=== PATIENT | male | born 1940 | race Caucasian/White ===

== ENCOUNTER → 2017-10-18 | Outpatient (CLI) | payer MEDICARE, OTHER ==
[~2017-10-18] MED LIST: ALLOPURINOL300 MG PO; AMIODARONE HCL200 MG PO; ASPIR 8181 MG PO; CARVEDILOL12.5 MG PO; CLOPIDOGREL75 MG PO; DEXILANT60 MG PO; JANUVIA100 MG PO; K DUR10 MEQ PO; LASIX40 MG PO; LISINOPRIL10 MG PO; METOCLOPRAMIDE10 MG PO; METOPROLOL SUCC50 MG PO; PRAVASTATIN SOD80 MG PO; TAMSULOSIN HCL0.4 MG PO; TRIAMCINOLONE A15 G1; VICTOZA 2-0.6 MG/0.1 SC; ZESTRIL10 MG PO; eliquis PO
--- NOTE | 2017-10-18 16:25 | Diagnostic Imaging Report ---
EXAM: Renal Ultrasound INDICATION: CHRONIC KIDNEY DISEASE STAGE III COMPARISON: None TECHNIQUE: Transverse and longitudinal images of the kidneys and bladder were obtained. FINDINGS: Right Kidney: Length: 10.8 cm Appearance: Increased echogenicity. Collecting system: No hydronephrosis Stones: None Cyst/Mass: Anechoic lesion with septation in the lower pole measures 1.7 x 1.5 x 1.3 cm consistent with a mildly complex cyst. Hypoechoic area in the interpolar region measures 1.4 x 1.4 x 1.2 cm, possibly a prominent pyramid. Small anechoic area in the lower pole measures 0.9 x 0.7 x 0.9 cm. Left Kidney: Length: 9.6 cm Appearance: Increased echogenicity. Collecting system: Mild hydronephrosis Stones: None Cyst/Mass: 0.7 x 0.6 x 0.7 cm cyst in the lower pole. Bladder: Irregular thickened urinary bladder wall measuring up to 0.6 cm in thickness.. Small volume post void residual. The prostate measures 2.2 x 1.9 x 4.0 cm with a volume of 8.9 cc. IMPRESSION: 1. Increased echogenicity of the renal cortex bilaterally suggestive of medical renal disease. 2. 1.5 cm mildly complex lower pole right renal cyst. 3. Mild bladder trabeculation. Signed by: Dr. Roland Momin M.D. on 10/18/2017 4:22 PM
--- NOTE | 2017-10-18 17:48 | Diagnostic Imaging Report ---
PROCEDURE:US RETROPERITONEAL ( KIDNEY ). EXAM: Renal Ultrasound INDICATION: CHRONIC KIDNEY DISEASE STAGE III COMPARISON: None TECHNIQUE: Transverse and longitudinal images of the kidneys and bladder were obtained. FINDINGS: Right Kidney: Length: 10.8 cm Appearance: Increased echogenicity. Collecting system: No hydronephrosis Stones: None Cyst/Mass: Anechoic lesion with septation in the lower pole measures 1.7 x 1.5 x 1.3 cm consistent with a mildly complex cyst. Hypoechoic area in the interpolar region measures 1.4 x 1.4 x 1.2 cm, possibly a prominent pyramid. Small anechoic area in the lower pole measures 0.9 x 0.7 x 0.9 cm. Left Kidney: Length: 9.6 cm Appearance: Increased echogenicity. Collecting system: Mild hydronephrosis Stones: None Cyst/Mass: 0.7 x 0.6 x 0.7 cm cyst in the lower pole. Bladder: Irregular thickened urinary bladder wall measuring up to 0.6 cm in thickness.. Small volume post void residual. The prostate measures 2.2 x 1.9 x 4.0 cm with a volume of 8.9 cc. IMPRESSION: 1. Increased echogenicity of the renal cortex bilaterally suggestive of medical renal disease. 2. 1.5 cm mildly complex lower pole right renal cyst. 3. Mild bladder trabeculation. Roland JULIAN M.D. DICTATED BY: Roland JULIAN M.D. ON 10/18/2017 AT 17:57 ELECTRONICALLY APPROVED BY: Roland JULIAN M.D. ON 10/18/2017 AT 17:57
== END ==
LOC: US 11:38
PROVIDERS: ATTEND Internal Medicine Nephrology
DX: N18.3 Chronic kidney disease, stage 3 (moderate) (principal); I10 Essential (primary) hypertension
CPT/HCPCS: 76770; 76857

== ENCOUNTER → 2018-11-06 | Outpatient (CLI) | payer MEDICARE, OTHER ==
--- NOTE | 2018-11-06 14:55 | Diagnostic Imaging Report ---
EXAMINATION: PA and lateral views of the chest. COMPARISON: None CLINICAL HISTORY: Congestive heart failure DISCUSSION: Lines/tubes: None. Lungs: Lower lung atelectasis. No interstitial edema. Pleura: Small effusions. Heart and mediastinum: Prominent heart size. Bones and soft tissues: No acute bony abnormalities. IMPRESSION: Mild lower lung atelectasis and small effusions. No pulmonary edema. Signed by: Dr. Andrew Ponce M.D. on 11/06/2018 2:52 PM
== END ==
LOC: RAD 13:10
PROVIDERS: ATTEND Internal Medicine
DX: I50.43 Acute on chronic combined systolic (congestive) and diastolic (congestive) heart failure (principal)
CPT/HCPCS: 71046

== ENCOUNTER 2020-08-20 16:59 | Inpatient (IN) | payer MEDICARE, OTHER ==
[~2020-08-20] VITALS: Ht 182.9 cm; Wt 100.7 kg
--- OUTSIDE RECORDS SUMMARY | 2020-08-20 18:06 | XMS REPORT | Continuity of Care Document ---
Author Author Gary [employer] CELI Moseley Organization [employer] [facility] [place] Address Unknown Phone Unavailable Care Team Providers Care Inspector Mechanical Name Role Phone [employer] Unavailable Un available Problems Problem Status Onset Date Classification Date Reported Comments Source 4MONTH FOLLOW UP Active 03/22/2020 [facility] ECHO Active 04/14/2019 [facility] 1 MONTH F/U Active 03/17/2019 [facility] HOSPITAL FU Active 03/03/2019 [facility] PREADMIT / TAVR / MAC / TTE Ac tive 02/25/2019 [facility] I35.0 Active 02/10/2019 [facility] FOLLOW UP Active 02/04/2019 [facility] I25.10 Active 01/09/2019 [facility] 4 WK F/U Active 11/28/2018 [facility] CCL / LHC -SCA Active 11/13/2018 [facility] INCREASED SHORTNESS OF BREATH Active 11/06/2018 [facility] Ischemic cardiomyopathy 11/04/2018 05/19/2019 [facility] 4 MONTH FOLLOW UP Active 09/30/2018 [facility] Atherosclerotic heart disease of [place] coronary artery without angina pectoris 06/08/2018 12/21/2018 [facility] F/U Active 0 03/05/2018 [facility] 2 MONTH F/U Active 12/24/2017 [facility] ICMP Active 08/27/2017 [facility] 6 WEEK F/U Active 04/30/2017 [facility] 2 WEEK F/U Active 03/06/2017 [facility] CHF Active 0 03/01/2017 [facility] Atrial fibrillation (disorder) Resolved Problem [facility] Coronary arteriosclerosis (disorder) Resolved Problem [facility] Chronic kidney disease (disorder) Resolved Problem [facility] Diabetes mellitus (disorder) R esolved Problem [facility], [facility] Hyperlipidemia (disorder) Reso lved Problem [facility], [facility] Hypertensive disorder, systemic arterial (disorder) Resolved Problem 05/13/2020 [facility] Systolic heart failure (disorder) Resolved Problem [facility], [facility] Chronic atrial fibrillation 05/19/2019 [facility] 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 05/19/2019 [facility] Type 2 diabetes mellitus with diabetic c hronic kidney disease 05/19/2019 [facility] Hypertensive chronic kidney disease with stage 1 through stage 4 chronic kidney disease, or unspecified chronic kidney disease 12/21/2018 [facility] Chronic kidney disease, stage 3 (moderate) 05/19/2019 [facility] Gout (disorder) Resolved Problem 05/13/2020 [facility] Nonrheumatic aortic (valve) stenosis 12/21/2018 [facility] Hyperlipidemia, unspecified 12/21/2018 [facility] Presence of coronary angioplasty implant and graft 12/21/2018 [facility] residential (current) use of aspirin 12/21/2018 [facility] residential (current) use of antithromboti cs/antiplatelets 12/21/2018 [facility] 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 and stage 1 through stage 4 chronic kidney disease, or unspecified chronic kidney disease 05/19/2019 [facility] Unspecified systolic (congestive) heart failure 05/19/2019 [facility] ENCNTR FOR GENERAL ADULT MEDICAL EXAM W/ Active [facility] CARDIOMYOPATHY, UNSPECIFIED Ac tive [facility] ATHSCL HEART DISEASE OF [place] CORONARY Active [facility] NONRHEUMATIC AORTIC (VALVE) STENOSIS Active [facility] Medications Medication Details Route Status Patient Instructions Ordering Provider Order Date Source Hydralazine Hydrochloride 50 MG Oral Tablet 50 mg = 1 tab, PO, BID, # 180 tab, 3 Refill(s), Pharmacy: [facility], 178.31, cm, 05/11/20 10:13:00 CDT, Height, 97.727, kg, 05/11/20 10:13:00 CDT, Weight Active 05/11/2020 [facility] carvedilol 25 mg oral tablet 2 5 mg = 1 tab, PO, BID, 0 Refill(s) Active 05/11/2020 [facility] omeprazole 40 mg oral delayed release capsule 40 mg = 1 cap, PO, Daily, # 30 cap, 1 Refill(s) Active 05/11/2020 [facility] nter Losartan Notes: (Same as: Palak gautam) No Longer Active 03/01/2019 [facility] Aspirin 81 MG Enteric Coated Tablet 81 mg = 1 tab, PO, Daily, 0 Refill(s) Active 02/28/2019 [facility] vancomycin Notes: TIME CRITICA L MEDICATION (Same As: Vancocin) For adult patients only: Round to nearest 250 mg per Medical Staff approval Inactive 02/28/2019 [facility] Vancomycin Notes: TIME CRITICA L MEDICATION (Same As: Vancocin) For adult patients only: Round to nearest 250 mg per Medical Staff approval Inactive 02/27/2019 [facility] acetaminophen-codeine #3 Notes : Do not exceed 4gm/day of acetaminophen. (Same as: Tylenol with Codeine # 3) No Longer Active 02/27/2019 [facility] Miralax Notes: Dissolve in 8 o z of water or juice. (Same as: Miralax) No Longer Active 02/27/2019 [facility] Lactulose 667 MG/ML Oral Solution Notes: (Same as:Chronulac) No Longer Active 02/27/2019 [facility] Allopurinol Notes: (Same as: Z yloprim) No Longer Active 02/27/2019 [facility] Potassium Chloride Notes: ([facility] e as: K-Dur 20) "Do Not Crush" Give with food and full glass of water For patients unable to swallow tablet, dissolve in one half glass of water. Allow about 2 minutes for the tab lets to disintegrate. Stir before giving to prepare slurry and administer. Please exclude Patients with feeding tube less than 14 Citizen [place] (Dobhoff, J-tube etc) and pediatric and patients. No Longer Active 02/27/2019 [facility] nter Magnesium Oxide Notes: (Same a s: Mag-Ox 400) Magnesium oxide 402mr=728er elemental magnesium Dose=____mg magnesium oxide (___mg elemental magnesium) No Longer Active 02/27/2019 [facility] nter Losartan Notes: (Same as: Coza ar) No Longer Active 02/27/2019 [facility] Imdur Notes: (Same as:Imdur) " Do Not Crush" Take on empty stomach/ full glass of water. Do not crush No Longer Active 02/27/2019 [facility] Aspirin Notes: Do not crush or chew. (Same As: Ecotrin) No Longer Active 02/27/2019 [facility] Furosemide 20 MG Oral Tablet N otes: (Same as: Lasix) May cause GI upset. Give with food or milk. No Longer Active 02/27/2019 [facility] Dexilant 60 mg, Route: PO, Manny g form: DRC, Daily, Dosing Weight 93.636, kg, Start date: 02/27/19 9:00:00 CDT, Duration: 30 day, Stop date: 03/28/19 9:00:00 CDT No Longer Active 02/27/2019 [facility] nter Protonix Notes: Tablet should not be chewed or crushed. (Same as: Protonix) No Longer Active 02/27/2019 [facility] nter heparin Notes: porcine heparin No Longer Active 02/27/2019 [facility] vancomycin Notes: TIME CRITICA L MEDICATION (Same As: Vancocin) For adult patients only: Round to nearest 250 mg per Medical Staff approval Inactive 02/27/2019 [facility] sennosides, FPC Notes: (Same a s: Senokot) No Longer Active 02/27/2019 [facility] Docusate Sodium 100 MG Oral Capsule [Colace] Notes: (Same as: Colace) (Do Not Crush) No Longer Active 02/27/2019 [facility] nter Brilinta Notes: (Same as: Bril inta) No Longer Active 02/27/2019 [facility] carvedilol Notes: Give with fo od. (Same As: Coreg) No Longer Active 02/27/2019 [facility] Crestor Notes: (Same As: Crest or) No Longer Active 02/27/2019 [facility] Hydralazine Hydrochloride 25 MG Oral Tablet Notes: (Same as: Apresoline) May interfere w/enteral feedings Take With Food. No Longer Active 02/27/2019 [facility] nter ferrous sulfate Notes: Give wi th food. "Do Not Crush" No Longer Active 02/27/2019 [facility] Potassium Chloride Notes: (Kevyn e as: KCL) Infuse no faster than 10 mEq/hr if given peripherally. Inactive 02/26/2019 [facility] nter potassium chloride 20 mEq oral tablet, extended releas e Notes: (Same as: K-Dur 20) "Do Not Crush" Give with food and full glass of water For patients unable to swallow tablet, dissolve in one half glass of water. Allow about 2 minutes for the tablets to disintegrate. Stir before giving to prepare slurry and administer. Please exclude Patients with feeding tube less than 14 Citizen [place] (Dobhoff, J-tube etc) and pediatric and patients. Inactive 02/26/2019 [facility] Amiodarone Notes: Same as: Edy chi Pacerone No Longer Active 02/26/2019 [facility] Fentanyl Notes: (Same as: Subl imaze) Preservative free. Inactive 02/26/2019 [facility] Acetaminophen 325 MG / Hydrocodone Ramiro trate 5 MG Oral Tablet [Northrop 5/325] Notes: (Same as: Northrop 325/5) Do not ex ceed 4gm/day of acetaminophen. No Longer Activ e 02/26/2019 [facility] Calcium Gluconate Notes: WASTE : F/P - Sink; E - Municipal Trash Bin No Longer Active 02/26/2019 [facility] nter Magnesium Sulfate Notes: WASTE : F/P - Sink; E - Municipal Trash Bin Inactive 02/26/2019 [facility] Nicardipine Notes: Same as: Ca rdene Concentration: (0.2 mg /1 ml ) No Longer Active 02/26/2019 [facility] Nitroglycerin Notes: (Same as: Tridil) Final conc = 0.4 mg/ml. Premix bottle. No Longe r Active 02/26/2019 [facility] Ondansetron Notes: (Same as: Abdulkadir carpenter) MEDICATION WASTE Product Size: 4 mg Product Wasted: ___ mg Inactive 02/26/2019 [facility] Flumazenil Notes: (Same as: Ro mazicon) Inactive 02/26/2019 [facility] Naloxone Notes: Same as Narcan Inactive 02/26/2019 [facility] Fentanyl Notes: (Same as: Subl imaze) Preservative free. Inactive 02/26/2019 [facility] propofol (ANES) Route: IV, Manny g form: INJ, ONCE, Stop date: 02/26/19 11:05:00 CDT Inactive 02/26/2019 [facility] n[facility] protamine (ANES) Route: IV, Dr ug form: INJ, ONCE, Stop date: 02/26/19 11:00:00 CDT Inactive 02/26/2019 [facility] n[facility] heparin (ANES) Route: IV, Drug form: INJ, ONCE, Stop date: 02/26/19 9:34:00 CDT Inactive 02/26/2019 [facility] nt fentaNYL (ANES) Route: IV, Manny g form: INJ, ONCE, Stop date: 02/26/19 9:18:00 CDT Inactive 02/26/2019 [facility] nt propofol (ANES) 10 mg Route: I V, Drug form: INJ, Start date: 02/26/19 8:03:00 CDT, Stop date: 02/26/19 9:03:00 CDT Inactive 02/26/2019 [facility] Sodium Chloride 0.9% IV (ANES) 1000 mL Route: IV, Total Volume: 1,000, Start date: 02/26/19 7:52:00 CDT, Stop date: 02/26/19 8:52:00 CDT Inactive 02/26/2019 [facility] normal saline 0.9% IV 1,000 mL 1,000 mL, Rate: 75 ml/hr, Infuse over: 13.3 hr, Route: IV, Dosing Weight 93.636 kg, Total Volume: 1,000, Start date: 02/26/19 6:01:00 CDT, Duration: 13 hr, Stop date: 02/26/19 19:00:00 CDT, 2.18, m2 Inactive 02/26/2019 [facility] DOBUTamine 50 mg + Dextrose 5% in Water IV 46 mL Notes: (Same as: Dobutrex) Not for direct administration- DILUTE. No Longer Active 01/21/2019 [facility] Vitamin D3 2000 intl units oral capsule 2,000 IntlUnit = 1 cap, PO, Daily, # 100 cap, 3 Refill(s) Active 01/16/2019 [facility] Imdur Notes: (Same as:Imdur) " Do Not Crush" Take on empty stomach/ full glass of water. Do not crush Inactive 11/28/2018 [facility] Hydralazine Hydrochloride 25 MG Oral Tablet Notes: (Same as: Apresoline) May interfere w/enteral feedings Take With Food. Inactive 11/28/2018 [facility] Furosemide 20 MG Oral Tablet N otes: (Same as: Lasix) May cause GI upset. Give with food or milk. Inactive 11/28/2018 [facility] Dexilant Notes: Same as: Kapid ex "Do Not Crush" Non- Formulary Inactive 11/28/2018 [facility] carvedilol Notes: Give with fo od. (Same As: Coreg) Inactive 11/28/2018 [facility] Allopurinol Notes: (Same as: Z yloprim) Inactive 11/28/2018 [facility] Amiodarone Notes: Same as: Cor alon, Pacerone Inactive 11/28/2018 [facility] Aspirin 81 MG Enteric Coated Tablet Notes: Do not crush or chew. (Same As: Ecotrin) Inactive 11/28/2018 [facility] Brilinta Notes: (Same as: Bril inta) Inactive 11/28/2018 [facility] Potassium Chloride Notes: (Kevyn e as: K-Dur 20) "Do Not Crush" Give with food and full glass of water For patients unable to swallow tablet, dissolve in one half glass of water. Allow about 2 minutes for the tab lets to disintegrate. Stir before giving to prepare slurry and administer. Please exclude Patients with feeding tube less than 14 Citizen [place] (Dobhoff, J-tube etc) and pediatric and patients. Inactive 11/28/2018 [facility] Losartan Notes: (Same as: Palak gautam) Inactive 11/28/2018 [facility] ticagrelor 90 mg oral tablet 9 0 mg = 1 tab, PO, Q12H, # 180 tab, 3 Refill(s), Pharmacy: [facility] Active 11/28/2018 [facility] ticagrelor 90 mg oral tablet 9 0 mg = 1 tab, PO, Q12H, # 180 tab, 3 Refill(s) Inactive 11/28/2018 [facility] Aspirin 81 MG Enteric Coated Tablet 81 mg = 1 tab, PO, Daily, # 30 tab, 0 Refill(s) Active 11/28/2018 [facility] ticagrelor 90 mg oral tablet 9 0 mg = 1 tab, PO, Q12H, # 180 tab, 0 Refill(s) Inactive 11/28/2018 [facility] ferrous sulfate Notes: Give wi th food. "Do Not Crush" No Longer Active 11/28/2018 [facility] Eliquis Notes: Same as: Eliquis No Longer Active 11/28/2018 [facility] Crestor Notes: (Same As: Crest or) No Longer Active 11/28/2018 [facility] NS (Bolus) IV 250 mL, 250 ml/h r, Infuse Over: 1 hr, Route: IV, ONCE, Priority: STAT, Dosing Weight 95 kg, Start date: 11/27/18 20:56:00 SUPERVISOR SAMPLE PREPARATION, Stop date: 11/27/18 20:56:00 SUPERVISOR SAMPLE PREPARATION Inactive 11/28/2018 [facility] Atropine 1 mg, Route: IVP, ONC E, Dosing Weight 95, kg, Start date: 11/27/18 19:30:00 SUPERVISOR SAMPLE PREPARATION, Stop date: 11/27/18 19:30:00 SUPERVISOR SAMPLE PREPARATION Inactive 11/28/2018 [facility] Hydralazine Notes: (Same as: A presoline) Push over 5 minutes No Longer Active 11/27/2018 [facility] Sodium Chloride 0.9% IV 250 mL 250 mL, Rate: 50 ml/hr, Infuse over: 5 hr, Route: IV, Dosing Weight 95 kg, Total Volume: 250, Start date: 11/27/18 17:06:00 SUPERVISOR SAMPLE PREPARATION, Duration: 24 hr, Stop date: 11/28/18 17:05:00 SUPERVISOR SAMPLE PREPARATION, 2.2, m2 No Longer Active 11/27/2018 [facility] apixaban 2.5 MG Oral Tablet [Eliquis] 2.5 mg, PO, Q12H, 0 Refill(s) Active 11/27/2018 [facility] AMIODarone 100 mg oral tablet 100 mg = 1 tab, PO, BID, # 60 tab, 0 Refill(s) Active 11/27/2018 [facility] Rosuvastatin calcium 10 MG Oral Tablet [Crestor] 10 mg = 1 tab, PO, Bedtime, # 90 tab, 1 Refill(s) Active 11/27/2018 [facility] Sodium Chloride 0.9% (Bolus) IV 250 mL, 250 ml/hr, Infuse Over: 1 hr, Route: IV, 250, Drug form: INJ, ONCALL, Priority: Routine, Dosing Weight 95 kg, Start date: 11/27/18 12:00:00 SUPERVISOR SAMPLE PREPARATION, Duration: 1 doses or times Inactive 11/27/2018 [facility] Sodium Chloride 0.9% IV 750 mL 750 mL, Rate: 75 ml/hr, Infuse over: 10 hr, Route: IV, Dosing Weight 95 kg, Total Volume: 750, Start date: 11/27/18 11:53:00 SUPERVISOR SAMPLE PREPARATION, Duration: 24 hr, Stop date: 11/28/18 11:52:00 SUPERVISOR SAMPLE PREPARATION, 2.2, m2 No Longer Active 11/27/2018 [facility] sennosides, FPC 8.6 MG Oral Tablet [Senna-Time] 8.6 mg = 1 tab, PO, Bedtime, 0 Refill(s) Active 11/12/2018 [facility] Diphenhydramine Hydrochloride 25 MG Oral Tablet [Benadryl] 25 mg = 1 tab, PO, Bedtime, 0 Refill(s) Active 11/12/2018 [facility] ferrous sulfate 325 MG Oral Tablet 325 mg = 1 tab, PO, Bedtime, 0 Refill(s) Active 11/12/2018 [facility] Elisha Move Free BID, 0 Refill (s) Active 11/12/2018 [facility] rosuvastatin 10 mg oral tablet 10 mg = 1 tab, PO, Bedtime, # 90 tab, 3 Refill(s), Pharmacy: [facility] No Longer Active 07/09/2018 [facility] Ticagrelor 60 MG Oral Tablet [Brilinta] 60 mg = 1 tab, PO, BID, # 60 tab, 3 Refill(s), Pharmacy: [facility] [id number] Active 12/24/2017 [facility] AMIODarone 100 mg oral tablet 200 mg = 2 tab, PO, Daily, # 60 tab, 0 Refill(s), Pharmacy: [facility] [id number] Active 12/24/2017 [facility] AMIODarone 100 mg oral tablet 200 mg = 2 tab, PO, Daily, # 60 tab, 0 Refill(s) Inactiv e 12/24/2017 [facility] Aspirin 81 MG Enteric Coated Tablet 81 mg = 1 tab, PO, Daily, # 90 tab, 3 Refill(s) Active 12/24/2017 [facility] AMIODarone 100 mg oral tablet 200 mg = 2 tab, PO, Daily, # 60 tab, 0 Refill(s) Inactiv e 12/24/2017 [facility] prasugrel 10 mg oral tablet 10 mg = 1 tab, PO, Daily, # 30 tab, 3 Refill(s) Inactive 12/24/2017 [facility] Nephro-Dario Rx 1 tab, PO, Charanjit y, 0 Refill(s) Active 12/24/2017 [facility] Nitroglycerin 0.4 MG Sublingual Tablet [Nitrostat] 0.4 mg = 1 tab, SL, Q5Min, PRN Chest Pain, # 100 tab, 0 Refill(s) Active 12/24/2017 [facility] rosuvastatin 10 mg oral tablet 10 mg = 1 tab, PO, Bedtime, # 90 tab, 0 Refill(s) Active 12/24/2017 [facility] Vitamin D3 1000 intl units oral tablet 2,000 IntlUnit = 2 tab, PO, Daily, # 30 tab, 0 Refill(s) Active 12/24/2017 [facility] carvedilol 12.5 mg oral tablet 12.5 mg = 1 tab, PO, BID, # 180 tab, 1 Refill(s) Active 12/24/2017 [facility] losartan 25 mg oral tablet 25 mg = 1 tab, PO, Daily, # 90 tab, 0 Refill(s) Active 08/27/2017 [facility] Rosuvastatin calcium 5 MG Oral Tablet [Crestor] 5 mg = 1 tab, PO, Bedtime, # 90 tab, 3 Refill(s), Pharmacy: [facility] Active 05/30/2017 [facility] Betamethasone 0.0005 MG/MG Augmented Topical Ointment 1 appl, TOP, 0 Refill(s) Active 05/01/2017 [facility] carvedilol 3.125 mg oral tablet 3.125 mg = 1 tab, PO, Q12H, # 60 tab, 3 Refill(s), Pharmacy: [facility] [id number] Active 03/20/2017 [facility] carvedilol 12.5 MG Oral Tablet [Coreg] 12.5 mg = 1 tab, PO, BID, # 60 tab, 3 Refill(s), Pharmacy: [facility] [id number] Active 03/20/2017 [facility] Rosuvastatin calcium 5 MG Oral Tablet [Crestor] 5 mg = 1 tab, PO, Bedtime, # 30 tab, 3 Refill(s), Pharmacy: [facility] [id number] Active 03/20/2017 [facility] Hydralazine Hydrochloride 25 MG Oral Tablet 25 mg = 1 tab, PO, BID, # 60 tab, 3 Refill(s) Active 03/06/2017 [facility] 24 HR Isosorbide Mononitrate 30 MG Exten ded Release Tablet [Imdur] 30 mg = 1 tab, PO, QAM, # 30 tab, 3 Refi ll(s) Active 03/06/2017 [facility] carvedilol 12.5 MG Oral Tablet [Coreg] 12.5 mg = 1 tab, PO, BID, # 60 tab, 3 Refill(s) Active 03/06/2017 [facility] Furosemide 20 MG Oral Tablet 3 tabs, PO, Daily, # 90 tab, 3 Refill(s) Active 03/06/2017 [facility] potassium chloride 40 mEq, Anastasia ly, 0 Refill(s) Active 03/06/2017 [facility] metoprolol 100 mg oral tablet, extended release See Instructions, 1 tab PO morning .5 tab PO night, 0 Refill(s) Inactive 03/06/2017 [facility] Clotrimazole 10 mg, PO, 5X Day , 0 Refill(s) Active 03/06/2017 [facility] Triamcinolone Acetonide 1 MG/ML Topical Cream 1 appl, TOP, TID, PRN For rash, # 15 gm, 0 Refill(s) Active 03/06/2017 [facility] Metoclopramide 10 MG Oral Tablet 10 mg = 1 tab, PO, BID, # 56 tab, 0 Refill(s) Active 03/06/2017 [facility] furosemide 80 mg oral tablet 8 0 mg = 1 tab, PO, Daily, # 30 tab, 0 Refill(s) Inactive 03/06/2017 [facility] magnesium oxide 500 mg oral tablet 500 mg = 1 tab, PO, Daily, # 10 tab, 0 Refill(s) Active 03/06/2017 [facility] pravastatin 80 mg oral tablet 80 mg = 1 tab, PO, Bedtime, # 30 tab, 0 Refill(s) Active 03/06/2017 [facility] AMIODarone 100 mg oral tablet 200 mg = 2 tab, PO, Daily, # 60 tab, 0 Refill(s) Active 03/06/2017 [facility] dexlansoprazole 60 MG Enteric Coated Capsule [Dexilant ] 60 mg = 1 cap, PO, Daily, # 30 day, 0 Refill(s) Active 03/06/2017 [facility] clopidogrel 75 mg oral tablet 75 mg = 1 tab, PO, Daily, # 30 tab, 0 Refill(s) Active 03/06/2017 [facility] allopurinol 300 mg oral tablet 300 mg = 1 tab, PO, Daily, # 30 tab, 0 Refill(s) Active 03/06/2017 [facility] apixaban 2.5 MG Oral Tablet [Eliquis] 2.5 mg = 1 tab, PO, BID, 0 Refill(s) Active 03/06/2017 [facility] Allergies, Adverse Reactions, Alerts Substance Category Reaction Severity Reaction type Status Date Reported Comments Source No Known Medication Allergies Assertion Drug aller gy [facility] Immunizations No Data Provided for This Section Results Order Name Results Value Reference Range Date Interpretation Comments Source CARDIAC ENZYMES BNP 783 <=100 pg/mL 05/11/2020 [facility] CHEM PANEL Glucose Lvl 140 70 - 99 05/11/2020 [facility] CHEM PANEL BUN 29 7 - 22 05/11/2020 [facility] CHEM PANEL Creatinine Lvl 2.26 0.50 - 1.40 05/11/2020 [facility] CHEM PANEL CO2 32 24 - 32 05/11/2020 [facility] CHEM PANEL Calcium Lvl 9.0 8.5 - 10.5 05/11/2020 [facility] CHEM PANEL Total Protein 7.2 6.4 - 8.4 05/11/2020 [facility] CHEM PANEL Albumin Lvl 3.3 3.5 - 5.0 05/11/2020 [facility] CHEM PANEL ALT 39 0 - 65 05/11/2020 [facility] CHEM PANEL AST 36 0 - 37 05/11/2020 [facility] CHEM PANEL Alk Phos 91 39 - 136 05/11/2020 [facility] CHEM PANEL Bili Total 0.5 0.2 - 1.3 05/11/2020 [facility] CHEM PANEL B/C Ratio 13 6 - 25 05/11/2020 [facility] CHEM PANEL Globulin 3.9 2.7 - 4.2 05/11/2020 [facility] CHEM PANEL A/G Ratio 0.8 0.7 - 1.6 05/11/2020 [facility] CHEM PANEL eGFR 26 05/11/2020 Result Comment: The eGFR is calculated using the CKD-EPI formula. In most young, healthy individuals the eGFR will be >90 mL/min/1.73m2. The eGFR declines with age. An eGFR of 60-89 may be normal in some populations, particularly the elderly, for whom the CKD-EPI formula has not been extensively validated. Use of the eGFR is not recommended in the following populations:

Individuals with unstable creatinine concentrations, including patients and those with serious co-morbid conditions.

Patients with extremes in muscle mass or diet.

The data above are obtained from the National Kidney Disease Education Program (NKDEP) which additionally recommends that when the eGFR is used in patients with extremes of body mass index for purposes of drug dosing, the eGFR should be multiplied by the estimated BMI. [facility] CHEM PANEL Sodium Lvl 143 135 - 145 05/11/2020 [facility] CHEM PANEL Potassium Lvl 4.0 3.5 - 5.1 05/11/2020 [facility] CHEM PANEL Chloride Lvl 106 95 - 109 05/11/2020 [facility] CHEM PANEL AGAP 9.0 10.0 - 20.0 05/11/2020 [facility] HEMATOLOGY WBC 7.7 3.7 - 10.4 05/11/2020 [facility] HEMATOLOGY RBC 3.97 4.70 - 6.10 05/11/2020 [facility] HEMATOLOGY Hgb 13.5 14.0 - 18.0 05/11/2020 [facility] HEMATOLOGY Hct 40.2 42.0 - 54.0 05/11/2020 [facility] HEMATOLOGY MCV 101.4 80.0 - 94.0 05/11/2020 [facility] HEMATOLOGY MCH 34.0 27.0 - 31.0 05/11/2020 [facility] HEMATOLOGY MCHC 33.6 32.0 - 36.0 05/11/2020 [facility] HEMATOLOGY RDW 15.0 11.5 - 14.5 05/11/2020 [facility] HEMATOLOGY Platelet 149 133 - 450 05/11/2020 [facility] HEMATOLOGY MPV 8.4 7.4 - 10.4 05/11/2020 [facility] HEMATOLOGY Segs 71.9 45.0 - 75.0 05/11/2020 [facility] HEMATOLOGY Lymphocytes 13.5 20.0 - 40.0 05/11/2020 [facility] HEMATOLOGY Monocytes 8.1 2.0 - 12.0 05/11/2020 [facility] HEMATOLOGY Eosinophils 5.7 0.0 - 4.0 05/11/2020 [facility] HEMATOLOGY Basophils 0.8 0.0 - 1.0 05/11/2020 [facility] HEMATOLOGY Neutrophils # 5.5 1.5 - 8.1 05/11/2020 [facility] HEMATOLOGY Lymphocytes # 1.0 1.0 - 5.5 05/11/2020 [facility] HEMATOLOGY Monocytes # 0.6 0.0 - 0.8 05/11/2020 [facility] HEMATOLOGY Eosinophils # 0.4 0.0 - 0.5 05/11/2020 [facility] HEMATOLOGY Basophils # 0.1 0.0 - 0.2 05/11/2020 [facility] HEMATOLOGY Macrocyte 1+ *ABN* (05/11/20 11:15 AM) None Seen 05/11/2020 [facility] LIPIDS Trig 130 <=149 mg/dL 05/11/2020 [facility] LIPIDS Chol 158 <=199 mg/dL 05/11/2020 [facility] LIPIDS HDL 52 >=61 mg/dL 05/11/2020 [facility] LIPIDS CHD Risk 3.04 4.00 - 7.30 05/11/2020 [facility] LIPIDS LDL (Calculated) 80 <=99 mg/dL 05/11/2020 [facility] LIPIDS VLDL 26 05/11/2020 [facility] SPECIAL CHEMISTRY Hgb A1C 7.2 <=5.6 % 05/11/2020 [facility] CARDIAC ENZYMES BNP 754 <=100 pg/mL 04/14/2019 [facility] CHEM PANEL A/G Ratio 0.8 0.7 - 1.6 04/14/2019 [facility] CHEM PANEL B/C Ratio 11 6 - 25 04/14/2019 [facility] CHEM PANEL Globulin 3.9 2.7 - 4.2 04/14/2019 [facility] CHEM PANEL AGAP 10.0 10.0 - 20.0 04/14/2019 [facility] CHEM PANEL eGFR 29 04/14/2019 Result Comment: The eGFR is calculated using the CKD-EPI formula. In most young, healthy individuals the eGFR will be >90 mL/min/1.73m2. The eGFR declines with age. An eGFR of 60-89 may be normal in some populations, particularly the elderly, for whom the CKD-EPI formula has not been extensively validated. Use of the eGFR is not recommended in the following populations:

Individuals with unstable creatinine concentrations, including patients and those with serious co-morbid conditions.

Patients with extremes in muscle mass or diet.

The data above are obtained from the National Kidney Disease Education Program (NKDEP) which additionally recommends that when the eGFR is used in patients with extremes of body mass index for purposes of drug dosing, the eGFR should be multiplied by the estimated BMI. [facility] CHEM PANEL Potassium Lvl 4.0 3.5 - 5.1 04/14/2019 [facility] CHEM PANEL Chloride Lvl 106 95 - 109 04/14/2019 [facility] CHEM PANEL CO2 31 24 - 32 04/14/2019 [facility] CHEM PANEL Calcium Lvl 8.6 8.5 - 10.5 04/14/2019 [facility] CHEM PANEL Total Protein 7.1 6.4 - 8.4 04/14/2019 [facility] CHEM PANEL Alk Phos 91 39 - 136 04/14/2019 [facility] CHEM PANEL Bili Total 0.3 0.2 - 1.3 04/14/2019 [facility] CHEM PANEL ALT 27 0 - 65 04/14/2019 [facility] CHEM PANEL AST 26 0 - 37 04/14/2019 [facility] CHEM PANEL Albumin Lvl 3.2 3.5 - 5.0 04/14/2019 [facility] CHEM PANEL Sodium Lvl 143 135 - 145 04/14/2019 [facility] CHEM PANEL Creatinine Lvl 2.11 0.50 - 1.40 04/14/2019 [facility] CHEM PANEL Glucose Lvl 101 70 - 99 04/14/2019 [facility] CHEM PANEL BUN 23 7 - 22 04/14/2019 [facility] HEMATOLOGY Monocytes 10.7 2.0 - 12.0 04/14/2019 [facility] HEMATOLOGY Neutrophils # 3.7 1.5 - 8.1 04/14/2019 [facility] HEMATOLOGY Lymphocytes # 0.8 1.0 - 5.5 04/14/2019 [facility] HEMATOLOGY Eosinophils 4.9 0.0 - 4.0 04/14/2019 [facility] HEMATOLOGY Basophils 0.8 0.0 - 1.0 04/14/2019 [facility] HEMATOLOGY Lymphocytes 15.8 20.0 - 40.0 04/14/2019 [facility] HEMATOLOGY Eosinophils # 0.3 0.0 - 0.5 04/14/2019 [facility] HEMATOLOGY Monocytes # 0.6 0.0 - 0.8 04/14/2019 [facility] HEMATOLOGY Segs 67.8 45.0 - 75.0 04/14/2019 [facility] HEMATOLOGY MCH 33.2 27.0 - 31.0 04/14/2019 [facility] HEMATOLOGY MCV 99.0 80.0 - 94.0 04/14/2019 [facility] HEMATOLOGY Hct 35.5 42.0 - 54.0 04/14/2019 [facility] HEMATOLOGY RDW 16.1 11.5 - 14.5 04/14/2019 [facility] HEMATOLOGY MCHC 33.6 32.0 - 36.0 04/14/2019 [facility] HEMATOLOGY MPV 9.1 7.4 - 10.4 04/14/2019 [facility] HEMATOLOGY Platelet 123 133 - 450 04/14/2019 [facility] HEMATOLOGY Hgb 11.9 14.0 - 18.0 04/14/2019 [facility] HEMATOLOGY WBC 5.4 3.7 - 10.4 04/14/2019 [facility] HEMATOLOGY RBC 3.59 4.70 - 6.10 04/14/2019 [facility] CHEM PANEL Magnesium Lvl 2.3 1.8 - 2.4 02/28/2019 [facility] CHEM PANEL Phosphorus 3.1 2.5 - 4.5 02/28/2019 [facility] CHEM PANEL Total Protein 5.4 6.4 - 8.4 02/28/2019 [facility] CHEM PANEL AST 23 0 - 37 02/28/2019 [facility] CHEM PANEL Globulin 2.9 2.7 - 4.2 02/28/2019 [facility] CHEM PANEL A/G Ratio 0.9 0.7 - 1.6 02/28/2019 [facility] CHEM PANEL Alk Phos 60 39 - 136 02/28/2019 [facility] CHEM PANEL Bili Total 0.7 0.2 - 1.3 02/28/2019 [facility] CHEM PANEL ALT 5 0 - 65 02/28/2019 [facility] CHEM PANEL Albumin Lvl 2.5 3.5 - 5.0 02/28/2019 [facility] CHEM PANEL CO2 26 24 - 32 02/28/2019 [facility] CHEM PANEL eGFR 27 02/28/2019 Result Comment: The eGFR is calculated using the CKD-EPI formula. In most young, healthy individuals the eGFR will be >90 mL/min/1.73m2. The eGFR declines with age. An eGFR of 60-89 may be normal in some populations, particularly the elderly, for whom the CKD-EPI formula has not been extensively validated. Use of the eGFR is not recommended in the following populations:

Individuals with unstable creatinine concentrations, including patients and those with serious co-morbid conditions.

Patients with extremes in muscle mass or diet.

The data above are obtained from the National Kidney Disease Education Program (NKDEP) which additionally recommends that when the eGFR is used in patients with extremes of body mass index for purposes of drug dosing, the eGFR should be multiplied by the estimated BMI. [facility] CHEM PANEL Calcium Lvl 8.4 8.5 - 10.5 02/28/2019 [facility] CHEM PANEL Creatinine Lvl 2.20 0.50 - 1.40 02/28/2019 [facility] CHEM PANEL Sodium Lvl 143 135 - 145 02/28/2019 [facility] CHEM PANEL Potassium Lvl 3.7 3.5 - 5.1 02/28/2019 [facility] CHEM PANEL Chloride Lvl 108 95 - 109 02/28/2019 [facility] CHEM PANEL Glucose Lvl 141 70 - 99 02/28/2019 [facility] CHEM PANEL BUN 28 7 - 22 02/28/2019 [facility] CHEM PANEL AGAP 12.7 10.0 - 20.0 02/28/2019 [facility] CHEM PANEL B/C Ratio 13 6 - 25 02/28/2019 [facility] HEMATOLOGY MPV 8.6 7.4 - 10.4 02/28/2019 [facility] HEMATOLOGY Platelet 97 133 - 450 02/28/2019 [facility] HEMATOLOGY RDW 16.2 11.5 - 14.5 02/28/2019 [facility] HEMATOLOGY MCV 96.9 80.0 - 94.0 02/28/2019 [facility] HEMATOLOGY MCH 33.1 27.0 - 31.0 02/28/2019 [facility] HEMATOLOGY MCHC 34.2 32.0 - 36.0 02/28/2019 [facility] HEMATOLOGY RBC 3.06 4.70 - 6.10 02/28/2019 [facility] HEMATOLOGY Hgb 10.1 14.0 - 18.0 02/28/2019 [facility] HEMATOLOGY Hct 29.6 42.0 - 54.0 02/28/2019 [facility] HEMATOLOGY WBC 8.2 3.7 - 10.4 02/28/2019 [facility] HEMATOLOGY INR 1.16 0.85 - 1.17 02/28/2019 [facility] HEMATOLOGY PTT 34.5 22.9 - 35.8 02/28/2019 [facility] HEMATOLOGY D-Dimer 0.53 02/28/2019 [facility] HEMATOLOGY Fibrinogen Lvl 378 230 - 510 02/28/2019 [facility] HEMATOLOGY PT 14.6 12.0 - 14.7 02/28/2019 [facility] HEMATOLOGY Thrombin Time 16.3 15.0 - 21.2 02/28/2019 [facility] HEMATOLOGY Basophils 0.5 0.0 - 1.0 02/28/2019 [facility] HEMATOLOGY Segs 78.8 45.0 - 75.0 02/28/2019 [facility] HEMATOLOGY Lymphocytes 7.4 20.0 - 40.0 02/28/2019 [facility] HEMATOLOGY Monocytes 11.5 2.0 - 12.0 02/28/2019 [facility] HEMATOLOGY Eosinophils 1.8 0.0 - 4.0 02/28/2019 [facility] HEMATOLOGY Neutrophils # 6.4 1.5 - 8.1 02/28/2019 [facility] HEMATOLOGY Lymphocytes # 0.6 1.0 - 5.5 02/28/2019 [facility] HEMATOLOGY Monocytes # 0.9 0.0 - 0.8 02/28/2019 [facility] HEMATOLOGY Eosinophils # 0.1 0.0 - 0.5 02/28/2019 [facility] PARATHYROID PROFILE Ca Ion WB 1.11 1.05 - 1.25 02/28/2019 [facility] PARATHYROID PROFILE Ca Norm WB 1.12 1.05 - 1.25 02/28/2019 [facility] HEMATOLOGY Hgb 11.3 14.0 - 18.0 02/27/2019 [facility] CARDIAC ENZYMES BNP 867 <=100 pg/mL 02/27/2019 [facility] CHEM PANEL Phosphorus 3.3 2.5 - 4.5 02/27/2019 [facility] CHEM PANEL Albumin Lvl 2.5 3.5 - 5.0 02/27/2019 [facility] CHEM PANEL Total Protein 5.3 6.4 - 8.4 02/27/2019 [facility] CHEM PANEL ALT 9 0 - 65 02/27/2019 [facility] CHEM PANEL Bili Total 0.7 0.2 - 1.3 02/27/2019 [facility] CHEM PANEL Alk Phos 63 39 - 136 02/27/2019 [facility] CHEM PANEL AST 24 0 - 37 02/27/2019 [facility] CHEM PANEL eGFR 29 02/27/2019 Result Comment: The eGFR is calculated using the CKD-EPI formula. In most young, healthy individuals the eGFR will be >90 mL/min/1.73m2. The eGFR declines with age. An eGFR of 60-89 may be normal in some populations, particularly the elderly, for whom the CKD-EPI formula has not been extensively validated. Use of the eGFR is not recommended in the following populations:

Individuals with unstable creatinine concentrations, including patients and those with serious co-morbid conditions.

Patients with extremes in muscle mass or diet.

The data above are obtained from the National Kidney Disease Education Program (NKDEP) which additionally recommends that when the eGFR is used in patients with extremes of body mass index for purposes of drug dosing, the eGFR should be multiplied by the estimated BMI. [facility] CHEM PANEL A/G Ratio 0.9 0.7 - 1.6 02/27/2019 [facility] CHEM PANEL Globulin 2.8 2.7 - 4.2 02/27/2019 [facility] CHEM PANEL BUN 28 7 - 22 02/27/2019 [facility] CHEM PANEL Potassium Lvl 4.0 3.5 - 5.1 02/27/2019 [facility] CHEM PANEL Chloride Lvl 109 95 - 109 02/27/2019 [facility] CHEM PANEL CO2 23 24 - 32 02/27/2019 [facility] CHEM PANEL Creatinine Lvl 2.10 0.50 - 1.40 02/27/2019 [facility] CHEM PANEL Sodium Lvl 141 135 - 145 02/27/2019 [facility] CHEM PANEL Glucose Lvl 139 70 - 99 02/27/2019 [facility] CHEM PANEL Calcium Lvl 8.3 8.5 - 10.5 02/27/2019 [facility] CHEM PANEL AGAP 13.0 10.0 - 20.0 02/27/2019 [facility] CHEM PANEL B/C Ratio 13 6 - 25 02/27/2019 [facility] CHEM PANEL Magnesium Lvl 2.2 1.8 - 2.4 02/27/2019 [facility] CHEM PANEL Bili Direct 0.1 0.0 - 0.3 02/27/2019 [facility] HEMATOLOGY Thrombin Time 17.6 15.0 - 21.2 02/27/2019 [facility] HEMATOLOGY PTT 29.2 22.9 - 35.8 02/27/2019 [facility] HEMATOLOGY Fibrinogen Lvl 276 230 - 510 02/27/2019 [facility] HEMATOLOGY INR 1.29 0.85 - 1.17 02/27/2019 [facility] HEMATOLOGY D-Dimer 0.64 02/27/2019 [facility] HEMATOLOGY PT 15.8 12.0 - 14.7 02/27/2019 [facility] HEMATOLOGY MCHC 34.2 32.0 - 36.0 02/27/2019 [facility] HEMATOLOGY MCV 96.7 80.0 - 94.0 02/27/2019 [facility] HEMATOLOGY MCH 33.1 27.0 - 31.0 02/27/2019 [facility] HEMATOLOGY RDW 16.5 11.5 - 14.5 02/27/2019 [facility] HEMATOLOGY Platelet 114 133 - 450 02/27/2019 [facility] HEMATOLOGY MPV 8.5 7.4 - 10.4 02/27/2019 [facility] HEMATOLOGY Hct 30.9 42.0 - 54.0 02/27/2019 [facility] HEMATOLOGY Hgb 10.6 14.0 - 18.0 02/27/2019 [facility] HEMATOLOGY RBC 3.20 4.70 - 6.10 02/27/2019 [facility] HEMATOLOGY WBC 7.0 3.7 - 10.4 02/27/2019 [facility] HEMATOLOGY Lymphocytes # 0.5 1.0 - 5.5 02/27/2019 [facility] HEMATOLOGY Monocytes # 0.7 0.0 - 0.8 02/27/2019 [facility] HEMATOLOGY Lymphocytes 7.7 20.0 - 40.0 02/27/2019 [facility] HEMATOLOGY Basophils 0.5 0.0 - 1.0 02/27/2019 [facility] HEMATOLOGY Neutrophils # 5.7 1.5 - 8.1 02/27/2019 [facility] HEMATOLOGY Monocytes 9.5 2.0 - 12.0 02/27/2019 [facility] HEMATOLOGY Eosinophils 0.7 0.0 - 4.0 02/27/2019 [facility] HEMATOLOGY Segs 81.6 45.0 - 75.0 02/27/2019 [facility] PARATHYROID PROFILE Ca Norm WB 1.05 1.05 - 1.25 02/27/2019 [facility] PARATHYROID PROFILE Ca Ion WB 1.00 1.05 - 1.25 02/27/2019 [facility] CHEM PANEL Magnesium Lvl 1.7 1.8 - 2.4 02/26/2019 [facility] CHEM PANEL eGFR 39 02/26/2019 Result Comment: The eGFR is calculated using the CKD-EPI formula. In most young, healthy individuals the eGFR will be >90 mL/min/1.73m2. The eGFR declines with age. An eGFR of 60-89 may be normal in some populations, particularly the elderly, for whom the CKD-EPI formula has not been extensively validated. Use of the eGFR is not recommended in the following populations:

Individuals with unstable creatinine concentrations, including patients and those with serious co-morbid conditions.

Patients with extremes in muscle mass or diet.

The data above are obtained from the National Kidney Disease Education Program (NKDEP) which additionally recommends that when the eGFR is used in patients with extremes of body mass index for purposes of drug dosing, the eGFR should be multiplied by the estimated BMI. [facility] CHEM PANEL Glucose Lvl 121 70 - 99 02/26/2019 [facility] CHEM PANEL BUN 23 7 - 22 02/26/2019 [facility] CHEM PANEL Creatinine Lvl 1.65 0.50 - 1.40 02/26/2019 [facility] CHEM PANEL CO2 22 24 - 32 02/26/2019 [facility] CHEM PANEL Calcium Lvl 6.7 8.5 - 10.5 02/26/2019 Result Comment: Critical Result(s) jenna ayala to Geraldo Gaby at 02/26/2019 16:17 by FNS. Read back OK. [facility] CHEM PANEL AGAP 12.3 10.0 - 20.0 02/26/2019 [facility] CHEM PANEL Sodium Lvl 146 135 - 145 02/26/2019 [facility] CHEM PANEL Potassium Lvl 3.3 3.5 - 5.1 02/26/2019 [facility] CHEM PANEL Chloride Lvl 115 95 - 109 02/26/2019 [facility] CHEM PANEL Phosphorus 2.9 2.5 - 4.5 02/26/2019 [facility] HEMATOLOGY D-Dimer 0.77 02/26/2019 [facility] HEMATOLOGY PTT 28.1 22.9 - 35.8 02/26/2019 [facility] HEMATOLOGY PT 14.8 12.0 - 14.7 02/26/2019 [facility] HEMATOLOGY INR 1.18 0.85 - 1.17 02/26/2019 [facility] HEMATOLOGY Fibrinogen Lvl 290 230 - 510 02/26/2019 [facility] HEMATOLOGY Thrombin Time 19.2 15.0 - 21.2 02/26/2019 [facility] HEMATOLOGY MPV 8.6 7.4 - 10.4 02/26/2019 [facility] HEMATOLOGY Platelet 140 133 - 450 02/26/2019 [facility] HEMATOLOGY RDW 16.3 11.5 - 14.5 02/26/2019 [facility] HEMATOLOGY MCHC 34.2 32.0 - 36.0 02/26/2019 [facility] HEMATOLOGY MCH 33.2 27.0 - 31.0 02/26/2019 [facility] HEMATOLOGY MCV 96.9 80.0 - 94.0 02/26/2019 [facility] HEMATOLOGY Hct 34.6 42.0 - 54.0 02/26/2019 [facility] HEMATOLOGY RBC 3.57 4.70 - 6.10 02/26/2019 [facility] HEMATOLOGY WBC 10.3 3.7 - 10.4 02/26/2019 [facility] HEMATOLOGY Eosinophils # 0.1 0.0 - 0.5 02/26/2019 [facility] HEMATOLOGY Monocytes # 0.8 0.0 - 0.8 02/26/2019 [facility] HEMATOLOGY Lymphocytes # 0.7 1.0 - 5.5 02/26/2019 [facility] HEMATOLOGY Neutrophils # 8.6 1.5 - 8.1 02/26/2019 [facility] HEMATOLOGY Basophils 0.3 0.0 - 1.0 02/26/2019 [facility] HEMATOLOGY Eosinophils 0.7 0.0 - 4.0 02/26/2019 [facility] HEMATOLOGY Monocytes 8.1 2.0 - 12.0 02/26/2019 [facility] HEMATOLOGY Lymphocytes 7.1 20.0 - 40.0 02/26/2019 [facility] HEMATOLOGY Segs 83.8 45.0 - 75.0 02/26/2019 [facility] PARATHYROID PROFILE Ca Ion WB 1.09 1.05 - 1.25 02/26/2019 [facility] PARATHYROID PROFILE Ca Norm WB 1.11 1.05 - 1.25 02/26/2019 [facility] HEMATOLOGY Eosinophils # 0.1 0.0 - 0.5 02/26/2019 [facility] BLOOD BANK RESULTS RBC product Product available (02/26/19 1:06 PM) 02/26/2019 [facility] HEMATOLOGY Basophils # 0.1 0.0 - 0.2 02/26/2019 [facility] HEMATOLOGY POC Activated Clotting Ti me 137 02/26/2019 [facility] [facility] HEMATOLOGY POC Activated Clotting Ti me 278 02/26/2019 [facility] HEMATOLOGY POC Activated Clotting Ti me 288 02/26/2019 [facility] BLOOD BANK RESULTS FFP product Product available (02/26/19 7:31 AM) 02/26/2019 [facility] BLOOD BANK RESULTS RBC product Product available (02/26/19 7:31 AM) 02/26/2019 [facility] BLOOD BANK RESULTS Antibody Scrn Negative (02/26/19 6:06 AM) 02/26/2019 [facility] BLOOD BANK RESULTS ABO/Rh A POS 02/26/2019 [facility] HEMATOLOGY Basophils # 0.1 0.0 - 0.2 02/26/2019 [facility] CHEM PANEL eGFR 24 02/24/2019 Result Comment: The eGFR is calculated using the CKD-EPI formula. In most young, healthy individuals the eGFR will be >90 mL/min/1.73m2. The eGFR declines with age. An eGFR of 60-89 may be normal in some populations, particularly the elderly, for whom the CKD-EPI formula has not been extensively validated. Use of the eGFR is not recommended in the following populations:

Individuals with unstable creatinine concentrations, including patients and those with serious co-morbid conditions.

Patients with extremes in muscle mass or diet.

The data above are obtained from the National Kidney Disease Education Program (NKDEP) which additionally recommends that when the eGFR is used in patients with extremes of body mass index for purposes of drug dosing, the eGFR should be multiplied by the estimated BMI. [facility] CHEM PANEL CO2 28 24 - 32 02/24/2019 [facility] CHEM PANEL Calcium Lvl 8.6 8.5 - 10.5 02/24/2019 [facility] CHEM PANEL Sodium Lvl 142 135 - 145 02/24/2019 [facility] CHEM PANEL Potassium Lvl 4.1 3.5 - 5.1 02/24/2019 [facility] CHEM PANEL Chloride Lvl 109 95 - 109 02/24/2019 [facility] CHEM PANEL AGAP 9.1 10.0 - 20.0 02/24/2019 [facility] CHEM PANEL Creatinine Lvl 2.46 0.50 - 1.40 02/24/2019 [facility] CHEM PANEL BUN 30 7 - 22 02/24/2019 [facility] CHEM PANEL Glucose Lvl 126 70 - 99 02/24/2019 [facility] CHEM PANEL eGFR 29 02/19/2019 Result Comment: The eGFR is calculated using the CKD-EPI formula. In most young, healthy individuals the eGFR will be >90 mL/min/1.73m2. The eGFR declines with age. An eGFR of 60-89 may be normal in some populations, particularly the elderly, for whom the CKD-EPI formula has not been extensively validated. Use of the eGFR is not recommended in the following populations:

Individuals with unstable creatinine concentrations, including patients and those with serious co-morbid conditions.

Patients with extremes in muscle mass or diet.

The data above are obtained from the National Kidney Disease Education Program (NKDEP) which additionally recommends that when the eGFR is used in patients with extremes of body mass index for purposes of drug dosing, the eGFR should be multiplied by the estimated BMI. [facility] CHEM PANEL POC Creatinine 2.1 0.5 - 1.4 02/19/2019 [facility] CHEM PANEL A/G Ratio 0.8 0.7 - 1.6 02/04/2019 [facility] CHEM PANEL AGAP 6.8 10.0 - 20.0 02/04/2019 [facility] CHEM PANEL B/C Ratio 16 6 - 25 02/04/2019 [facility] CHEM PANEL Globulin 3.9 2.7 - 4.2 02/04/2019 [facility] CHEM PANEL Sodium Lvl 143 135 - 145 02/04/2019 [facility] CHEM PANEL BUN 36 7 - 22 02/04/2019 [facility] CHEM PANEL Chloride Lvl 108 95 - 109 02/04/2019 [facility] CHEM PANEL Potassium Lvl 3.8 3.5 - 5.1 02/04/2019 [facility] CHEM PANEL Glucose Lvl 128 70 - 99 02/04/2019 [facility] CHEM PANEL Calcium Lvl 8.7 8.5 - 10.5 02/04/2019 [facility] CHEM PANEL Total Protein 7.2 6.4 - 8.4 02/04/2019 [facility] CHEM PANEL CO2 32 24 - 32 02/04/2019 [facility] CHEM PANEL Alk Phos 86 39 - 136 02/04/2019 [facility] CHEM PANEL Bili Total 0.3 0.2 - 1.3 02/04/2019 [facility] CHEM PANEL Albumin Lvl 3.3 3.5 - 5.0 02/04/2019 [facility] CHEM PANEL ALT 45 0 - 65 02/04/2019 [facility] CHEM PANEL AST 29 0 - 37 02/04/2019 [facility] CHEM PANEL Creatinine Lvl 2.27 0.50 - 1.40 02/04/2019 [facility] CHEM PANEL eGFR 26 02/04/2019 Result Comment: The eGFR is calculated using the CKD-EPI formula. In most young, healthy individuals the eGFR will be >90 mL/min/1.73m2. The eGFR declines with age. An eGFR of 60-89 may be normal in some populations, particularly the elderly, for whom the CKD-EPI formula has not been extensively validated. Use of the eGFR is not recommended in the following populations:

Individuals with unstable creatinine concentrations, including patients and those with serious co-morbid conditions.

Patients with extremes in muscle mass or diet.

The data above are obtained from the National Kidney Disease Education Program (NKDEP) which additionally recommends that when the eGFR is used in patients with extremes of body mass index for purposes of drug dosing, the eGFR should be multiplied by the estimated BMI. [facility] HEMATOLOGY RBC 3.73 4.70 - 6.10 02/04/2019 [facility] HEMATOLOGY Hgb 12.3 14.0 - 18.0 02/04/2019 [facility] HEMATOLOGY Hct 36.9 42.0 - 54.0 02/04/2019 [facility] HEMATOLOGY RDW 15.5 11.5 - 14.5 02/04/2019 [facility] HEMATOLOGY MCV 98.9 80.0 - 94.0 02/04/2019 [facility] HEMATOLOGY MCH 33.0 27.0 - 31.0 02/04/2019 [facility] HEMATOLOGY Platelet 189 133 - 450 02/04/2019 [facility] HEMATOLOGY MCHC 33.3 32.0 - 36.0 02/04/2019 [facility] HEMATOLOGY WBC 6.3 3.7 - 10.4 02/04/2019 [facility] HEMATOLOGY MPV 8.8 7.4 - 10.4 02/04/2019 [facility] HEMATOLOGY Segs 67.2 45.0 - 75.0 02/04/2019 [facility] HEMATOLOGY Eosinophils 4.3 0.0 - 4.0 02/04/2019 [facility] HEMATOLOGY Lymphocytes 17.4 20.0 - 40.0 02/04/2019 [facility] HEMATOLOGY Monocytes 10.3 2.0 - 12.0 02/04/2019 [facility] HEMATOLOGY Neutrophils # 4.3 1.5 - 8.1 02/04/2019 [facility] HEMATOLOGY Lymphocytes # 1.1 1.0 - 5.5 02/04/2019 [facility] HEMATOLOGY Monocytes # 0.7 0.0 - 0.8 02/04/2019 [facility] HEMATOLOGY Basophils 0.8 0.0 - 1.0 02/04/2019 [facility] HEMATOLOGY Basophils # 0.1 0.0 - 0.2 02/04/2019 [facility] HEMATOLOGY Eosinophils # 0.3 0.0 - 0.5 02/04/2019 [facility] CHEM PANEL Magnesium Lvl 2.1 1.8 - 2.4 11/28/2018 [facility] CHEM PANEL Phosphorus 4.0 2.5 - 4.5 11/28/2018 [facility] CHEM PANEL eGFR 27 11/28/2018 Result Comment: The eGFR is calculated using the CKD-EPI formula. In most young, healthy individuals the eGFR will be >90 mL/min/1.73m2. The eGFR declines with age. An eGFR of 60-89 may be normal in some populations, particularly the elderly, for whom the CKD-EPI formula has not been extensively validated. Use of the eGFR is not recommended in the following populations:

Individuals with unstable creatinine concentrations, including patients and those with serious co-morbid conditions.

Patients with extremes in muscle mass or diet.

The data above are obtained from the National Kidney Disease Education Program (NKDEP) which additionally recommends that when the eGFR is used in patients with extremes of body mass index for purposes of drug dosing, the eGFR should be multiplied by the estimated BMI. [facility] CHEM PANEL Chloride Lvl 106 95 - 109 11/28/2018 [facility] CHEM PANEL Sodium Lvl 138 135 - 145 11/28/2018 [facility] CHEM PANEL Glucose Lvl 100 70 - 99 11/28/2018 [facility] CHEM PANEL Creatinine Lvl 2.20 0.50 - 1.40 11/28/2018 [facility] CHEM PANEL BUN 27 7 - 22 11/28/2018 [facility] CHEM PANEL Calcium Lvl 8.0 8.5 - 10.5 11/28/2018 [facility] CHEM PANEL Potassium Lvl 4.2 3.5 - 5.1 11/28/2018 [facility] CHEM PANEL CO2 26 24 - 32 11/28/2018 [facility] CHEM PANEL AGAP 10.2 10.0 - 20.0 11/28/2018 [facility] HEMATOLOGY WBC 7.6 3.7 - 10.4 11/28/2018 [facility] HEMATOLOGY RBC 3.23 4.70 - 6.10 11/28/2018 [facility] HEMATOLOGY Hgb 10.7 14.0 - 18.0 11/28/2018 [facility] HEMATOLOGY MCHC 33.8 32.0 - 36.0 11/28/2018 [facility] HEMATOLOGY RDW 14.5 11.5 - 14.5 11/28/2018 [facility] HEMATOLOGY Hct 31.7 42.0 - 54.0 11/28/2018 [facility] HEMATOLOGY MCV 98.2 80.0 - 94.0 11/28/2018 [facility] HEMATOLOGY MCH 33.2 27.0 - 31.0 11/28/2018 [facility] HEMATOLOGY Platelet 177 133 - 450 11/28/2018 [facility] HEMATOLOGY MPV 8.2 7.4 - 10.4 11/28/2018 [facility] HEMATOLOGY Eosinophils 0.7 0.0 - 4.0 11/28/2018 [facility] HEMATOLOGY Basophils 0.8 0.0 - 1.0 11/28/2018 [facility] HEMATOLOGY Lymphocytes # 0.9 1.0 - 5.5 11/28/2018 [facility] HEMATOLOGY Neutrophils # 6.0 1.5 - 8.1 11/28/2018 [facility] HEMATOLOGY Segs 78.8 45.0 - 75.0 11/28/2018 [facility] HEMATOLOGY Lymphocytes 11.3 20.0 - 40.0 11/28/2018 [facility] HEMATOLOGY Monocytes 8.4 2.0 - 12.0 11/28/2018 [facility] HEMATOLOGY Monocytes # 0.6 0.0 - 0.8 11/28/2018 [facility] HEMATOLOGY Eosinophils # 0.1 0.0 - 0.5 11/28/2018 [facility] HEMATOLOGY Basophils # 0.1 0.0 - 0.2 11/28/2018 [facility] HEMATOLOGY Monocytes # 0.4 0.0 - 0.8 11/28/2018 [facility] HEMATOLOGY Lymphocytes # 0.8 1.0 - 5.5 11/28/2018 [facility] HEMATOLOGY Basophils # 0.1 0.0 - 0.2 11/28/2018 [facility] HEMATOLOGY Eosinophils # 0.1 0.0 - 0.5 11/28/2018 [facility] HEMATOLOGY Segs 86.7 45.0 - 75.0 11/28/2018 [facility] HEMATOLOGY Neutrophils # 8.5 1.5 - 8.1 11/28/2018 [facility] HEMATOLOGY Basophils 0.5 0.0 - 1.0 11/28/2018 [facility] HEMATOLOGY Eosinophils 0.7 0.0 - 4.0 11/28/2018 [facility] HEMATOLOGY Monocytes 4.2 2.0 - 12.0 11/28/2018 [facility] HEMATOLOGY Lymphocytes 7.9 20.0 - 40.0 11/28/2018 [facility] HEMATOLOGY RDW 14.7 11.5 - 14.5 11/28/2018 [facility] HEMATOLOGY MCHC 33.7 32.0 - 36.0 11/28/2018 [facility] HEMATOLOGY MCH 33.3 27.0 - 31.0 11/28/2018 [facility] HEMATOLOGY Platelet 175 133 - 450 11/28/2018 [facility] HEMATOLOGY MPV 8.4 7.4 - 10.4 11/28/2018 [facility] HEMATOLOGY MCV 98.7 80.0 - 94.0 11/28/2018 [facility] HEMATOLOGY RBC 3.65 4.70 - 6.10 11/28/2018 [facility] HEMATOLOGY Hct 36.0 42.0 - 54.0 11/28/2018 [facility] HEMATOLOGY Hgb 12.2 14.0 - 18.0 11/28/2018 [facility] HEMATOLOGY WBC 9.8 3.7 - 10.4 11/28/2018 [facility] HEMATOLOGY Hgb 9.0 14.0 - 18.0 11/28/2018 [facility] HEMATOLOGY Hct 26.9 42.0 - 54.0 11/28/2018 [facility] HEMATOLOGY Platelet 162 133 - 450 11/28/2018 [facility] HEMATOLOGY POC Activated Clotting Ti me 179 11/28/2018 [facility] BLOOD BANK RESULTS Antibody Scrn Negative (11/27/18 12:02 PM) 11/27/2018 [facility] BLOOD BANK RESULTS ABO/Rh A POS 11/27/2018 [facility] CHEM PANEL Magnesium Lvl 2.1 1.8 - 2.4 11/27/2018 [facility] ELECTROLYTES AGAP 11.5 10.0 - 20.0 11/27/2018 [facility] ELECTROLYTES eGFR 25 11/27/2018 Result Comment: The eGFR is calculated using the CKD-EPI formula. In most young, healthy individuals the eGFR will be >90 mL/min/1.73m2. The eGFR declines with age. An eGFR of 60-89 may be normal in some populations, particularly the elderly, for whom the CKD-EPI formula has not been extensively validated. Use of the eGFR is not recommended in the following populations:

Individuals with unstable creatinine concentrations, including patients and those with serious co-morbid conditions.

Patients with extremes in muscle mass or diet.

The data above are obtained from the National Kidney Disease Education Program (NKDEP) which additionally recommends that when the eGFR is used in patients with extremes of body mass index for purposes of drug dosing, the eGFR should be multiplied by the estimated BMI. [facility] ELECTROLYTES CO2 31 24 - 32 11/27/2018 [facility] ELECTROLYTES Calcium Lvl 9.0 8.5 - 10.5 11/27/2018 [facility] ELECTROLYTES Chloride Lvl 106 95 - 109 11/27/2018 [facility] ELECTROLYTES Sodium Lvl 144 135 - 145 11/27/2018 [facility] ELECTROLYTES Potassium Lvl 4.5 3.5 - 5.1 11/27/2018 [facility] ELECTROLYTES Creatinine Lvl 2.3 6 0.50 - 1.40 11/27/2018 [facility] ELECTROLYTES BUN 28 7 - 22 11/27/2018 [facility] ELECTROLYTES Glucose Lvl 120 70 - 99 11/27/2018 [facility] HEMATOLOGY Neutrophils # 4.6 1.5 - 8.1 11/27/2018 [facility] HEMATOLOGY Basophils 0.9 0.0 - 1.0 11/27/2018 [facility] HEMATOLOGY Eosinophils 2.4 0.0 - 4.0 11/27/2018 [facility] HEMATOLOGY Monocytes 8.1 2.0 - 12.0 11/27/2018 [facility] HEMATOLOGY Lymphocytes 14.3 20.0 - 40.0 11/27/2018 [facility] HEMATOLOGY Segs 74.3 45.0 - 75.0 11/27/2018 [facility] HEMATOLOGY Lymphocytes # 0.9 1.0 - 5.5 11/27/2018 [facility] HEMATOLOGY Basophils # 0.1 0.0 - 0.2 11/27/2018 [facility] HEMATOLOGY Eosinophils # 0.1 0.0 - 0.5 11/27/2018 [facility] HEMATOLOGY Monocytes # 0.5 0.0 - 0.8 11/27/2018 [facility] HEMATOLOGY PT 13.4 12.0 - 14.7 11/27/2018 [facility] HEMATOLOGY PTT 27.7 22.9 - 35.8 11/27/2018 [facility] HEMATOLOGY INR 1.04 0.85 - 1.17 11/27/2018 [facility] HEMATOLOGY MCH 33.4 27.0 - 31.0 11/27/2018 [facility] HEMATOLOGY MCV 97.9 80.0 - 94.0 11/27/2018 [facility] HEMATOLOGY MPV 8.5 7.4 - 10.4 11/27/2018 [facility] HEMATOLOGY MCHC 34.1 32.0 - 36.0 11/27/2018 [facility] HEMATOLOGY RDW 14.3 11.5 - 14.5 11/27/2018 [facility] HEMATOLOGY WBC 6.2 3.7 - 10.4 11/27/2018 [facility] HEMATOLOGY RBC 4.13 4.70 - 6.10 11/27/2018 [facility] Pathology Reports No Data Provided for This Section Diagnostic Reports Report Value Date Source Chest 2 views DX EXAM: XR CHES T 2 views DATE: 02/28/2019 3:00 CDT INDICATION: Line Placement - Status post PPM/ICD Implantation COMPARISON: 02/27/2019 TECHNIQUE: AP and lateral chest radiographs IMPRESSION: 1. Cardiomediastinal silhouette is uppe r limit of normal size. Aortic atherosclerotic disease. 2. Prominent lung reticulations again s een with peribronchial cuffing suggestive of pulmonary edema. Superimposed infection cannot be excluded. Findings have improved compared to previous study. 3. Small bilateral pleural effusions. 4. Osseous structures are stable. 5. Left chest wall triple leads cardiac pacing device is stable in position with leads terminate in right atrium, right ventricle and coronary sinus. 02/28/2019 [facility] Chest 1 v for Placement DX EXA M: XR CHEST 1 VIEW DATE: 02/27/2019, 1928 hours INDICATION: Line Placement - Status post PPM/ICD Implantation COMPARISON: 02/27/2019, 0331 hours TECHNIQUE: AP chest FINDINGS: Hazy airspace opacities in the lungs have decreased slightly in severity. Focal left lower lobe opacity is unchanged, but obscured in the left hemidiaphragm. No pneumothorax or significant pleural effusion is seen. The cardiac silhouette is at the upper limits of normal in size. Changes of 10 again seen. IMPRESSION: 1. New PPM/implantable cardiac defibrill ator over the left upper thorax with expected position of the electrodes. 2. No change in left lower lobe opacity that most likely represents atelectasis. 3. Decreased mild pulmonary edema. 02/27/2019 [facility] Chest 1view DX EXAM: XR CHEST 1 VIEW DATE: 02/27/2019 3:00 CDT INDICATION: Respiratory failure - Respiratory failure COMPARISON: 02/26/2019 TECHNIQUE: AP chest. FINDINGS: Right subclavian approach single lead pacemaker remains position. Stable prominent cardiomediastinal silhouette and postsurgical changes following TAVR. Increased left retrocardiac opacity is likely left pleural effusion with or without consolidation or atelectasis. Small left pleural effusion. Stable patchy opacities bilaterally may represent edema or multifocal infection. IMPRESSION: 1. Stable post surgical changes followi ng TAVR. 2. Increased left retrocardiac opacity is likely left pleural effusion with or without consolidation or atelectasis. 3. Small left pleural effusion. 4. Stable patchy opacities bilaterally may represent edema or multifocal infection. 02/27/2019 [facility] Chest 1view DX EXAM: XR CHEST 1 VIEW DATE: 02/26/2019 11:28 CDT INDICATION: Arrhythmias - TAVR COMPARISON: None. TECHNIQUE: AP chest. FINDINGS: Postsurgical changes following TAVR. There is a single lead right subclavian approach pacemaker with its lead projecting over the right ventricle. Trace bilateral pleural effusions. No pneumothorax. Patchy opacities bilaterally may represent edema or multifocal infection. IMPRESSION: 1. Postsurgical changes following TAVR. 2. Trace bilateral pleural effusions. 3. Patchy alveolar opacities bilaterall y may represent edema or multifocal infection. 02/26/2019 [facility] Heart/coronary art TAVR CTA EX AM: CTA HEART WITH CONTRAST DATE: 02/19/2019 INDICATION: - Aortic Stenosis. Aortic stenosis, TAVR candidate, CAD COMPARISON: None TECHNIQUE: Contrast imaging was performed on a [employer] 640 slice MDCT scanner, utilizing a single breath-hold, space at 750 mA and 120 kV. A preliminary button cutting machine operator study was obtained. Retrospective ECG gating was performed, at a heart rate of 54-61 bpm. Images were reformatted at 0.5 mm intervals and sent to the [employer] workstation for interpretation of 3D anatomic reconstructions, including multiplanar reconstructions (MPR), maximum intensity projections (MIP), and multi-planar imaging, and 4D cine reconstructions for functional evaluation of cardiac valves and ventricular chambers during systolic and diastolic phrases. IV contrast: 90 mL of Visipaque 320 contrast was delivered intravenously at 5 mL/sec followed by a 50 mL normal saline bolus chaser. Radiation Dose: 15.55ms STUDY QUALITY: Adequately CARDIAC FINDINGS: (please see separate chest CT examinatio n for pulmonary embolism or other extra cardiac findings) Aortic root landmarks (dimensions determined in systolic phases) Aortic valve: tricommissural Bicuspid aortic valve: Froilan type I with fusion of the right and left coronary cusps by incomplete raphe; asymmetricallycalcified Coplanar TAVR angle: MICRONESIAN 6, CAU 4 Aortic annulus: 29.3 x 27.0 mm; average 27.3 mm; area 5.84 sq cm; circumference 86.3 mm Ao annulus to coronary height: left main: 12.8 mm; right: 13.1 mm Ao annulus to STJ length: 21.5 mm Sinuses of Valsalva Width: Anterior cusp comprised of the fusion of right and left coronary cusps: left 33.9mm, right 32.6 mm, Posterior cusp: non-coronary 33.8 mm Sino-tubular junction: 29.5 x 26.9 mm; average 27.9 mm Ascending aorta width at 40 mm from annulus: 33.2 x 31.2 mm; average 32.5 mm Descending thoracic aorta: 30.6x 28.2mm; average 27.8mm Coronary Arteries: This patient has a right dominant system. The left main originated from the lateral aspect of the anterior cusp. There is a medium-size caliber vessel that trifurcates into the left anterior descending, ramus intermedius, and left circumflex coronary arteries. There is a calcified plaque visualized in the left main, resulting in 20-30% stenosis. Left anterior descending coronary is a medium-size caliber vessel with a stent mid segment; the stent appears to be patent. There is a soft plaque proximal to the stent causing at least 70% stenosis. Ramus intermedius is a small caliber vessel with a stent from the proximal to distal segment; unable to evaluate the degree of restenosis within the stent due to poor visualization of the lumen. Left circumflex is a medium caliber vessel with significant diffuse calcification throughout the vessel with concerns for significant flow limiting stenosis at the mid-distal segment. There appears to be a stent at the proximal-mid segment of the OM, which appears to be patent. The right coronary artery has an anterior take off from the anterior cusp. The right coronary artery has diffuse calcification throughout the vessel with stents at the mid and distal segment. There is poor contrast opacification of the lumen after the distal stent, concerning for significant flow limiting stenosis. Correlation with coronary angiogram is suggested, as clinically indicated. Basal septal hypertrophy: Yes Severe hypertrophy (1.5 cm wall thickness): 17.2mm Intracardiac masses: No Other cardiac findings: Left ventricle appears to be dilated with mildly reduced systolic function. LV End-Diastolic Volume: 248 ml LV End-Systolic Volume: 165 ml LV Ejection Fraction: 34% Regional Wall Motion Abnormalities: Hypokinesis of the inferior, inferoseptal and septal hopkins. Pacemaker: No Artificial valve: No IMPRESSION: 1. Tricommissural bicuspid aortic valve (Froilan Type 1 with incomplete raphe/fusion of left and right coronary cusps) and with aortic annular measurements as described above. 2. Multivessel coronary atherosclerotic disease status post stents. Correlation with coronary angiogram is suggested, as clinically indicated. This was a cardiac CT angiogram study focusing on the cardiovascular system in the chest. Pathology outside this organ system may not have been fully evaluated and may not be delineated here. As such, if pathology is suggested clinically, other testing should be performed. Please refer to separate chest, abdomen and pelvis CTA report by Radiology. 02/19/2019 [facility] Chest/Abd/Pelvis TAVR CTA EXAM : VIR CT angiogram thorax abdomen and pelvis. TAVR protocol INDICATION: 78 years old Male with aortic stenosis TECHNIQUE: Following the administration of intravenous contrast, 3 mm slices from the thoracic inlet through the pubic symphysis were obtained in arterial phase. Images are reviewed on 3D workstation. COMPARISON: None FINDINGS: Vascular Measurements: Ascending aorta: 33 mm x 33 mm Aortic arch: 24 mm x 23 mm Mid-descending thoracic aorta: 29 mm x 28 mm Aorta at diaphragm: 25 mm x 24 mm Aorta at celiac axis: 25 mm x 24 mm Aorta at superior mesenteric artery: 21 mm x 20 mm Mid-infrarenal aorta: 21 mm x 20 mm Right common iliac artery: 10 mm x 9 mm Right external iliac artery: 10 mm x 7 mm Right common femoral artery: 9 mm x 9 mm Left common iliac artery: 15 mm x 14 mm Left external iliac artery: 10 mm x 9 mm Left common femoral artery: 10 mm x 8 mm Right subclavian artery: 11 mm x 8 mm Left subclavian artery: 8 mm x 8 mm Calcific scores: Ascending aorta: 1 Aortic arch: 1 Descending thoracic aorta: 1 Aorta at diaphragm: 1 Suprarenal abdominal aorta: 2 Infrarenal abdominal aorta: 3 0 :none 1 :punctate calcifications 2 : <50% of vessel circumference is conf luent calcification 3 : >50% of vessel circumference is conf luent calcification Other vascular findings: Extensive calcified and noncalcified atheromatous plaque within the distal infrarenal aorta and left common iliac artery. 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 Distal celiac branches are well-perfused. Nonvascular findings: Prominent mediastinal lymph nodes, some of which are calcified, are likely reactive. Three-vessel coronary artery calcifications, better evaluated on same day CTA coronary. No pericardial effusion. Aortic valve leaflet calcifications. Small bilateral pleural effusions. Smooth intralobular septal thickening and scattered groundglass opacities are consistent with pulmonary edema. Moderate to severe peribronchial wall thickening. Scattered calcified and noncalcified pulmonary micronodules, for example in the medial right upper lobe (5-43) and posterior left upper lobe (5-43). Splenic and hepatic calcifications suggest old granulomatous disease. Gallbladder, pancreas, adrenal glands are unremarkable. Bilateral low-density lesions are too small to characterize. Right lower pole renal simple cyst. Prostatomegaly. Small hiatal hernia. Sigmoid diverticulosis without evidence of diverticulitis. Appendix is normal. No acute osseous abnormality. IMPRESSION: 1. CTA performed for TAVR planning, wit h measurements as indicated above. 2. Extensive calcified and noncalcified atheromatous plaque within the distal infrarenal aorta and left common iliac artery. No high grade vessel stenosis. 3. 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 4. Several calcified and noncalcified p ulmonary micronodules, likely infectious/inflammatory in the setting of prior granulomatous disease. Consider [address] chest follow-up, per Fleischner criteria. 5. Small bilateral pleural effusions. P ulmonary edema. 6. Moderate to severe peribronchial wal l thickening indicates large airways disease. 02/19/2019 [facility] Consultation Notes No Data Provided for This Section Discharge Summaries No Data Provided for This Section History and Physicals No Data Provided for This Section Vital Signs Vital Sign Value Date Comments Source Systolic (mm Hg) 139 05/11/2020 [facility] Diastolic (mm Hg) 73 05/11/2020 [facility] Heart Rate 72 05/11/2020 [facility] Respitory Rate 18 05/11/2020 [facility] Temperature Oral (F) 97.0 F 05/11/2020 [facility] Height 178.31 cm 05/11/2020 [facility] Weight 97.727 05/11/2020 [facility] BMI Calculated 30.74 05/11/2020 [facility] Systolic (mm Hg) 159 06/17/2019 [facility] Diastolic (mm Hg) 91 06/17/2019 [facility] Heart Rate 65 06/17/2019 [facility] Respitory Rate 18 06/17/2019 [facility] Temperature Oral (F) 97.7 F 06/17/2019 [facility] Height 178.05 cm 06/17/2019 [facility] Weight 92.273 06/17/2019 [facility] BMI Calculated 29.11 06/17/2019 [facility] BMI Calculated 29.62 04/14/2019 [facility] Weight 93.636 04/14/2019 [facility] Height 177.8 cm 04/14/2019 [facility] Temperature Oral (F) 97.8 F 04/14/2019 [facility] Respitory Rate 18 04/14/2019 [facility] Heart Rate 84 04/14/2019 [facility] Systolic (mm Hg) 117 04/14/2019 [facility] Diastolic (mm Hg) 66 04/14/2019 [facility] BMI Calculated 29.49 03/17/2019 [facility] Weight 93.239 03/17/2019 [facility] Temperature Oral (F) 97.6 F 03/17/2019 [facility] Height 177.8 cm 03/17/2019 [facility] Systolic (mm Hg) 118 03/17/2019 [facility] Diastolic (mm Hg) 67 03/17/2019 [facility] Respitory Rate 18 03/17/2019 [facility] Heart Rate 62 03/17/2019 [facility] Respitory Rate 15 02/28/2019 [facility] Systolic (mm Hg) 123 02/28/2019 [facility] Diastolic (mm Hg) 58 02/28/2019 [facility] Systolic (mm Hg) 125 02/28/2019 [facility] Diastolic (mm Hg) 61 02/28/2019 [facility] Respitory Rate 27 02/28/2019 [facility] Respitory Rate 13 02/28/2019 [facility] Systolic (mm Hg) 131 02/28/2019 [facility] Diastolic (mm Hg) 59 02/28/2019 [facility] Temperature Oral (F) 96.3 F 02/28/2019 [facility] Temperature Oral (F) 96.6 F 02/28/2019 [facility] Temperature Oral (F) 96.8 F 02/28/2019 [facility] BMI Calculated 28.79 02/26/2019 [facility] Weight 93.636 02/26/2019 [facility] Height 180.34 cm 02/26/2019 [facility] Systolic (mm Hg) 165 02/19/2019 [facility] Diastolic (mm Hg) 69 02/19/2019 [facility] Heart Rate 50 02/19/2019 [facility] Systolic (mm Hg) 165 02/19/2019 [facility] Diastolic (mm Hg) 79 02/19/2019 [facility] Heart Rate 51 02/19/2019 [facility] BMI Calculated 28.65 02/19/2019 [facility] Weight 93.182 02/19/2019 [facility] Height 180.34 cm 02/19/2019 [facility] Height 177.8 cm 02/04/2019 [facility] BMI Calculated 30.05 02/04/2019 [facility] Weight 95 0 02/04/2019 [facility] Temperature Oral (F) 98.3 F 02/04/2019 [facility] Respitory Rate 18 02/04/2019 [facility] Heart Rate 61 02/04/2019 [facility] Systolic (mm Hg) 135 02/04/2019 [facility] Diastolic (mm Hg) 67 02/04/2019 [facility] BMI Calculated 28.37 01/21/2019 [facility] Weight 92.273 01/21/2019 [facility] Height 180.34 cm 01/21/2019 [facility] Systolic (mm Hg) 142 12/30/2018 [facility] Diastolic (mm Hg) 73 12/30/2018 [facility] Height 177.8 cm 12/30/2018 [facility] BMI Calculated 29.98 12/30/2018 [facility] Temperature Oral (F) 97.6 F 12/30/2018 [facility] Respitory Rate 16 12/30/2018 [facility] Heart Rate 56 12/30/2018 [facility] Weight 94.773 12/30/2018 [facility] Systolic (mm Hg) 143 11/28/2018 [facility] Diastolic (mm Hg) 69 11/28/2018 [facility] Temperature Oral (F) 97.8 F 11/28/2018 [facility] Systolic (mm Hg) 136 11/28/2018 [facility] Diastolic (mm Hg) 63 11/28/2018 [facility] Systolic (mm Hg) 109 11/28/2018 [facility] Diastolic (mm Hg) 56 11/28/2018 [facility] Temperature Oral (F) 97.8 F 11/27/2018 [facility] Height 180.34 cm 11/27/2018 [facility] Weight 95 0 11/27/2018 [facility] BMI Calculated 29.21 11/27/2018 [facility] Weight 93.21 11/12/2018 [facility] BMI Calculated 29.48 11/12/2018 [facility] Height 177.8 cm 11/12/2018 [facility] Heart Rate 60 11/12/2018 [facility] Respitory Rate 16 11/12/2018 [facility] Temperature Oral (F) 97.7 F 11/12/2018 [facility] Systolic (mm Hg) 131 11/12/2018 [facility] Diastolic (mm Hg) 65 11/12/2018 [facility] Height 175.26 cm 09/30/2018 [facility] BMI Calculated 31.37 09/30/2018 [facility] Weight 96.364 09/30/2018 [facility] Systolic (mm Hg) 138 09/30/2018 [facility] Diastolic (mm Hg) 72 09/30/2018 [facility] Temperature Oral (F) 98.2 F 09/30/2018 [facility] Respitory Rate 16 09/30/2018 [facility] Heart Rate 54 09/30/2018 [facility] Height 177.29 cm 06/03/2018 [facility] Weight 94.602 06/03/2018 [facility] BMI Calculated 30.1 06/03/2018 [facility] Heart Rate 51 06/03/2018 [facility] Temperature Oral (F) 97.6 F 06/03/2018 [facility] Respitory Rate 16 06/03/2018 [facility] Systolic (mm Hg) 143 06/03/2018 [facility] Diastolic (mm Hg) 68 06/03/2018 [facility] Height 182.88 cm 03/05/2018 [facility] Weight 95.653 03/05/2018 [facility] BMI Calculated 28.6 03/05/2018 [facility] Systolic (mm Hg) 131 03/05/2018 [facility] Diastolic (mm Hg) 67 03/05/2018 [facility] Temperature Oral (F) 97.6 F 03/05/2018 [facility] Respitory Rate 18 03/05/2018 [facility] Heart Rate 52 03/05/2018 [facility] BMI Calculated 29.99 12/24/2017 [facility] Weight 97.528 12/24/2017 [facility] Height 180.34 cm 12/24/2017 [facility] Systolic (mm Hg) 127 12/24/2017 [facility] Diastolic (mm Hg) 75 12/24/2017 [facility] Temperature Oral (F) 97.2 F 12/24/2017 [facility] Respitory Rate 16 12/24/2017 [facility] Heart Rate 67 12/24/2017 [facility] Height 180.34 cm 09/04/2017 [facility] BMI Calculated 30.47 09/04/2017 [facility] Weight 99.091 09/04/2017 [facility] BMI Calculated 30.75 09/04/2017 [facility] Weight 100 09/04/2017 [facility] Height 180.34 cm 09/04/2017 [facility] Weight 98.409 05/01/2017 [facility] BMI Calculated 29.42 05/01/2017 [facility] Height 182.88 cm 05/01/2017 [facility] Respitory Rate 16 05/01/2017 [facility] Temperature Oral (F) 97.4 F 05/01/2017 [facility] Heart Rate 62 05/01/2017 [facility] Systolic (mm Hg) 112 05/01/2017 [facility] Diastolic (mm Hg) 68 05/01/2017 [facility] BMI Calculated 29.7 03/20/2017 [facility] Weight 99.318 03/20/2017 [facility] Height 182.88 cm 03/20/2017 [facility] Systolic (mm Hg) 142 03/20/2017 [facility] Diastolic (mm Hg) 75 03/20/2017 [facility] Respitory Rate 16 03/20/2017 [facility] Temperature Oral (F) 97.8 F 03/20/2017 [facility] Heart Rate 54 03/20/2017 [facility] Weight 98.864 03/06/2017 [facility] BMI Calculated 29.56 03/06/2017 [facility] Systolic (mm Hg) 185 03/06/2017 [facility] Diastolic (mm Hg) 99 03/06/2017 [facility] Temperature Oral (F) 98 F 03/06/2017 [facility] Heart Rate 60 03/06/2017 [facility] Respitory Rate 18 03/06/2017 [facility] Height 182.88 cm 03/06/2017 [facility] Encounters Location Location Details Encounter Type Encounter Number Reason For Visit Attending Provider ADM Date DC Date Status Source [facility] Outpatient [id number] Biswajit David 03/06/2017 03/07/2017 [facility] Outpatient [id number] Biswajit David 03/20/2017 03/21/2017 [facility] Outpatient [id number] Biswajit David 05/01/2017 05/02/2017 [facility] Phone Message [id number] 05/30/20 17 06/01/2017 [facility] Outpatient [id number] Biswajit David 08/27/2017 08/28/2017 [facility] Outpatient [id number] Biswajit David 09/04/2017 09/05/2017 [facility] Phone Message [id number] 09/04/20 17 09/06/2017 [facility] Outpatient [id number] Biswajit David 12/24/2017 12/25/2017 [facility] Outpatient [id number] Biswajit David 03/05/2018 03/06/2018 [facility] Outpatient [id number] Biswajit David 06/03/2018 2018 [facility] Recurring [id number] Biswajit David 09/30/2018 10/30/2018 [facility] Outpatient [id number] Biswajit David 11/12/2018 11/13/2018 [facility] Bedded Outpatient [id number] Biswajit David 11/27/2018 11/28/2018 [facility] Outpatient [id number] Biswajit David 12/30/2018 12/31/2018 [facility] Outpatient [id number] Biswajit David 01/06/2019 01/07/2019 [facility] Outpatient [id number] Biswajit David 01/21/2019 01/22/2019 [facility] Recurring [id number] Biswajit David 02/04/2019 03/06/2019 [facility] Outpatient [id number] Biswajit David 02/19/2019 02/20/2019 [facility] Inpatient [id number] Biswajit David 02/26/2019 02/28/2019 [facility] Outpatient [id number] Biswajit David 03/17/2019 03/18/2019 [facility] Outpatient [id number] Biswajit David 04/14/2019 04/15/2019 [facility] Outpatient [id number] Biswajit David 06/17/2019 06/18/2019 [facility] Outpatient [id number] Biswajit David 05/11/2020 05/12/2020 [facility] Procedures Procedure Code Date Perfomer Comments Source PCI - Percutaneous coronary intervention [id number] 01/23/2016 [facility] Assessment and Plan Assessment and Plan Date Source Extracted from:Title: Preoperative H&P: HF Surgery Author: Janell Dias Date: 02/24/19 78 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 Charlee Hernandez for evaluation of his aortic stenosis. HF Surgery is asked to see the patient to evaluate for SAVR vs TAVR. -Patient seen by and discussed with Dr. Short -Patient is at a higher risk due to his advanced age, depressed ejection fraction, and medical comorbidities. Details of the surgery/procedure including risks and benefits of TAVR versus SAVR have been explained to the patient. Risk of cutdown, alternative access, emergent sternotomywas also discussed. Discussion regarding anticoagulation, renal failure, respiratory failure, need for pacemaker/ICD, stroke, infection, bleeding, and possibility of even were discussed in detail.Patient's and 's questions were all answered and were understood. The patient has no objections to blood product transfusion. -TAVR coordinator will ensure we have all necessary diagnostic studies per protocol prior to scheduling for TAVR including but not limited to: CBC, CMP, TTE, PFTs, CTA chest/abdomen/pelvis, and CT with contrast heart. -Per Dr. Hernandez, will plan for PCI to proximal LAD at time of TAVR. STS Risk Score (Isolated AVR) Case Timestamp: Sunday, February 24, 2019 Mortality Risk: 6.701% Any Morbidity or Mortality Risk: 35.987% Long LOS Risk: 18.188% Short LOS Estimate: 11.285% Permanent Stroke Risk: 2.325% Prolonged Ventilation Risk: 24.936% Deep Sternal Wound Infection Risk: 0.654% Renal Failure Risk: 13.639% Reoperation Risk: 11.727% -Beninese: No Aortic Insufficiency: None Aortic Stenosis: Yes Arrhythmia: Yes : No Atrial fib/flutter: Yes CHF: Yes CVA When: NA Cardiogenic Shock: No Cerebrovascular Disease: No Chronic Lung Disease: Mild Creatinine: 2.1 mg/dl Diabetes: Yes Diabetes Control: Diet Dialysis: No EF: 25 Endocarditis: No Endocarditis Type: NA Female: No Height: 178 cm : No Hypertension: Yes IABP: No IABP When: NA Immunosuppression: No Incidence: First Operation Left Main Disease: No HI: Yes HI When: > 21 days Mitral Insufficiency: Mild Mitral Stenosis: No NYHA Class: III Number of Diseased Vessels: 3 PCI When: > 6 hours Patient Age: 78 Peripheral Vascular Disease: No Preoperative Inotropes: No Previous CABG: No Previous PCI: Yes Previous Valve: No Prior CVA: NA Procedure: Aortic Valve Replacement Resuscitation: No Status: Elective Tricuspid Insufficiency: Trivial Weight: 95 kg STS Risk Score (AVR+CABG) Case Timestamp: Sunday, February 24, 2019 Mortality Risk: 8.932% Any Morbidity or Mortality Risk: 46.921% Long LOS Risk: 28.279% Short LOS Estimate: 6.553% Permanent Stroke Risk: 3.246% Prolonged Ventilation Risk: 30.835% Deep Sternal Wound Infection Risk: 0.870% Renal Failure Risk: 23.865% Reoperation Risk: 16.097% 03/06/2019 [facility] Extracted from:Title: AHF Progress Note * Author: Madi Elaine MD Date: 02/28/19 Impression and Plan The patient was seen and examined by me with the resident/HEARING AID FITTER/PA and I agree with the History/Exam documented. Mr. 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 Bleeding was controlled with manual pressure and fem stop. #Severe, low-flow low-gradient aortic stenosis s/p TAVR with successful placement of 29 mm [employer] S3 pericardial tissue heart valve on 02/26/2019 - Dobutamine stress TTE from 01/21/19 was reviewed showing severe aortic stenosis at peak stress. - TAVR complicated by complete heart blo ck. S/p implantation of a temporary [place] [place] externalized PPM. S/p PPM implantation on 02/27/19 - aspirin 81 mg + ticagrelor 90 mg mg t wice daily - Cardiac rehabilitation after hospital discharge. 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 NYHA class II-III. - Continue current dose of Coreg, [place]art an, Isosorbide Mononitrate and Hydralazine. #CAD with most recent PCI to RCA on 11/27/18 - s/p PCI to proximal LAD 02/26/19 - Continue Brilinta, BB and statin. # Chronic atrial fibrillation - restart eliquis - continue Amiodarone. # DM II - Last A1c was 6.7. # CKD stage III - monitor creatinine #HTN Home meds restarted #Dispo: Discharge today. F/u with Dr. Hernandez in 1 week. F/u with EP in 1 week. Continue triple therapy with ASA, Eliquis, and Brilinta for 1 month, then discontinue ASA. Discussed with attending, Dr. Tl Elaine, PGY4 [facility] Division of Cardiovascular Medicine Extracted from:Title: Heart Failure Admission H&P * Author: Yassine Boothe MD Date: 02/26/19 Impression and Plan Mr. 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 Bleeding was controlled with manual pressure and fem stop. #Severe, low-flow low-gradient aortic stenosis s/p TAVR with successful placement of 29 mm [employer] S3 pericardial tissue heart valve on 02/26/2019 - Dobutamine stress TTE from 01/21/19 was reviewed showing severe aortic stenosis at peak stress. - TAVR complicated by complete heart blo ck. S/p implantation of a temporary [employer] externalized PPM. Will monitor pacing requirements. EP to determine if PPM required - Usual post-TAVR care per standard prot ocol, including intravenous hydration to prevent contrast induced nephropathy. - May start heparin DVT prophylaxis from tomorrow morning, SCDs for now. - Echocardiogram will be obtained on th e next day. - Resume home medications. - Continue arie-procedural IV antibiotic s prophylaxis. - Start on aspirin 81 mg + ticagrelor 90 mg mg twice daily - Cardiac rehabilitation after hospital discharge. 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 NYHA class II-III. - Continue current dose of Coreg, [place] an, Isosorbide Mononitrate and Hydralazine. #CAD with most recent PCI to RCA on 11/27/18 - s/p PCI to proximal LAD today - Continue Brilinta, BB and statin. # Chronic atrial fibrillation - Hold eliquis today given bleed at groi n. Will need to restart once assured no more bleeding - continue Amiodarone. # DM II - Last A1c was 6.7. # CKD stage III - monitor creatinine - IV hydration protocol as above To be discussed with attending, Dr. Tl Elaine, PGY4 [facility] Division of Cardiovascular Medicine Cardiology Attending Attestation: I have seen and examined the patient with Dr. Elaine on 02/26/19. I have reviewed all the clinical information, lab investigation and imaging data. I agree with the above findings, assessment and plan. 02/28/2019 [facility] Plan of Care No Data Provided for This Section Social History Social History Date Source Social History TypeResponse Smoking Status Never smoker; Previous treatment: None; Ready to change: No; Concerns about tobacco use in household: No; Exposure to Tobacco Smoke None; Cigarette Smoking Last 365 Days No; Reg Smoking Cessation Counseling No entered on: 05/11/20 05/11/2020 [facility] Social History TypeResponse Smoking Status Never smoker; Ready to change: No; Concerns about tobacco use in household: No; Exposure to Tobacco Smoke None; Cigarette Smoking Last 365 Days No; Reg Smoking Cessation Counseling No 08/27/2017 [facility] Heart Failure Family History No Data Provided for This Section Advance Directives No Data Provided for This Section Functional Status No Data Provided for This Section
--- OUTSIDE RECORDS SUMMARY | 2020-08-20 18:07 | XMS REPORT | Continuity of Care Document ---
Author Author [facility] Organization [facility] Address [address] [place] [address] Phone Unavailable Care Team Providers Care Prizer Hand Name Role Phone David Chad Attphys ORPIYUSHRINA Attphys Unavailable HELENACelinaZEFERINO Attphys Unavailable Chato Hernandezkeri Admphys Problems Condition Name Condition Details Condition Category Status Onset Date Resolution Date Last Treatment Date Treating Clinician Comments Source 4MONTH FOLLOW UP 4MON TH FOLLOW UP Active 03/22/2020 [facility] Diagnosis Active 2020-03-22 00:00:00 2020-05-11 0 9:40:00 [facility] ECHO ECHO Active 04/14/2019 [facility] Diagnosis Active 2019-04-14 00:00:00 2019-10-14 08:40:00 [facility] 1 MONTH F/U 1 MO NTH F/U Active 03/17/2019 [facility] Diagnosis Active 2019-03-17 00:00:00 2019-04-14 10:21:00 [facility] FU HOSP ITAL FU Active 03/03/2019 [facility] Diagnosis Active 2019-03-03 00:00:00 2019-03-17 11:54:00 [facility] PREADMIT / TAVR / MAC / TTE OH EADMIT / TAVR / MAC / TTE Active 02/25/2019 [facility] Diagnosis Active 2019-02-25 00 :00:00 2019-03-17 11:47:00 [facility] I35.0 I35. 0 Active 02/10/2019 [facility] Diagnosis Active 2019-02-10 00:00:00 2019-03-17 11:47:00 [facility] FOLLOW UP FOLL OW UP Active 02/04/2019 [facility] Diagnosis Active 2019-02-04 14:59:00 2019-02-24 10:12:00 [facility] I25.10 I25. 10 Active 01/09/2019 [facility] Diagnosis Active 2019-01-09 00:00:00 2019-01-21 07:34:00 [facility] 4 WK F/U 4 WK F/U Active 11/28/2018 [facility] Diagnosis Active 2018-11-28 00:00:00 2018-12-30 11:29:00 [facility] CCL / LHC -SCA CCL / LHC -SCA Active 11/13/2018 [facility] Diagnosis Active 2018-11-13 00:00:00 2018-11-27 1 1:38:00 [facility] INCREASED SHORTNESS OF BREATH INCREASED SHORTNESS OF BREATH Active 11/06/2018 [facility] Diagnosis Active 2018-11-06 00:00:00 2018-11-12 09:00:00 Gary Marie 4 MONTH FOLLOW UP 4 MO NTH FOLLOW UP Active 09/30/2018 [facility] Diagnosis Active 2018-09-30 00:00:00 2019-02 11:47:00 [facility] F/U F/U Active 03/05/2018 [facility] Diagnosis Active 2018-03-05 00:00:00 2018-06-03 10:24:00 [facility] 2 MONTH F/U 2 MO NTH F/U Active 12/24/2017 [facility] Diagnosis Active 2017-12-24 00:00:00 2018-03-05 12:22:00 [facility] ICMP ICMP Active 08/27/2017 [facility] Diagnosis Active 2017-08-27 00:00:00 2017-09-04 08:28:00 [facility] 6 WEEK F/U 6 WE EK F/U Active 04/30/2017 [facility] Diagnosis Active 2017-04-30 00:00:00 2017-05-01 09:44:00 [facility] 2 WEEK F/U 2 WE EK F/U Active 03/06/2017 [facility] Diagnosis Active 2017-03-06 00:00:00 2017-03-20 10:42:00 [facility] CHF CHF Active 03/01/2017 [facility] Diagnosis Active 2017-03-01 00:00:00 2017-03-06 11:47:00 [facility] Chronic atrial fibrillation Ch ronic atrial fibrillation 05/19/2019 [facility] Problem 2019-05-19 11 :07:08 Gary Marie USP (current) use of anticoagulants USP (current) use of anticoagulants 05/19/2019 [facility] Problem 2019-05-19 11:07:08 Gary anderson Type 2 diabetes mellitus with diabetic chronic kidney disease Type 2 diabetes mellitus with diabetic chronic kidney disease 05/19/2019 [facility] Problem 2019-05-19 11:07:08 Gary Marie Hypertensive chronic kidney disease with stage 1 through stage 4 chronic kidney disease, or unspecified chronic kidney disease Hypertensive chronic kidney disease with stage 1 through stage 4 chronic kidney disease, or unspecified chronic kidney disease 12/21/2018 [facility] Problem 2018-12-21 11:15:50 Celio Marie Chronic kidney disease, stage 3 (moderate) Chronic kidney disease, stage 3 (moderate) 05/19/2019 [facility] Problem 2019-05-19 11:07:08 Gary Marie Nonrheumatic aortic (valve) stenosis Nonrheumatic aortic (valve) stenosis 12/21/2018 [facility] Problem 2018-12-21 11:15:50 Gary Marie Hyperlipidemia, unspecified Hy perlipidemia, unspecified 12/21/2018 [facility] Problem 2018-12-21 11 :15:50 Gary Marie 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 12/21/2018 [facility] Problem 2018-12-21 11:15:50 Celio Marie USP (current) use of aspirin director long term care (current) use of aspirin 12/21/2018 [facility] Problem 2018-12-21 11:15:50 Gary Marie USP (current) use of antithrombotics/antiplatele ts USP (current) use of antithrombotics/antiplatelets 12/21/2018 [facility] Problem 2018-12-21 11:15:50 Gary Marie 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 and stage 1 through stage 4 chronic kidney disease, or unspecified chronic kidney disease Hypertensive heart and chronic kidney disease with heart failure and stage 1 through stage 4 chronic kidney disease, or unspecified chronic kidney disease 05/19/2019 [facility] Problem 2019-05-19 11:07:08 Gary Marie Unspecified systolic (congestive) heart failure Unspecified systolic (congestive) heart failure 05/19/2019 [facility] Problem 2019-05-19 11:07:08 Celio Marie Atrial fibrillation (disorder) Atrial fibrillation (disorder) Resolved Problem 05/13/2020 [facility] Heart Failure Problem Resolved 2020-05-13 23:06:33 Gary Marie Coronary arteriosclerosis (disorder) Coronary arteriosclerosis (disorder) Resolved Problem 05/13/2020 [facility] Heart [facility] Problem Resolved 2020-05-13 23 :06:33 Gary Marie Chronic kidney disease (disorder) Chronic kidney disease (disorder) Resolved Problem 05/13/2020 [facility] Problem Resolved 2020-05-13 23:06:33 Gary Marie Diabetes mellitus (disorder) D iabetes mellitus (disorder) Resolved Problem 05/13/2020 [facility] Problem Resolved 2020-05-13 23:06:33 Gary Marie Hyperlipidemia (disorder) Hype rlipidemia (disorder) Resolved Problem 05/13/2020 [facility] Problem Resolved 2020-05-13 23:06:33 Kerwin Marie Hypertensive disorder, systemic arterial (disorder) Hypertensive disorder, systemic arterial (disorder) Resolved Problem 05/13/2020 [facility] Problem Resolved 2020-05-13 23:06:33 Gary Marie Systolic heart failure (disorder) Systolic heart failure (disorder) Resolved Problem 05/13/2020 [facility] Problem Resolved 2020-05-13 23:06:33 Gary Marie Gout (disorder) Gout (disorder) Resolved Problem 05/13/2020 [facility] Problem Resolved 2020-05-13 23:06:33 Gary Marie ENCNTR FOR GENERAL ADULT MEDICAL EXAM W/ ENCNTR FOR GENERAL ADULT MEDICAL EXAM W/ Active [facility] Diagnosis Act tom 2020-05-11 09:40:00 Gary anderson CARDIOMYOPATHY, UNSPECIFIED CA RDIOMYOPATHY, UNSPECIFIED Active [facility] Diagnosis Active 2017-09-04 08:28:00 Gary Marie 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 Active [facility] Diagnosis Active 2019-01-21 07:34:00 Gary Marie NONRHEUMATIC AORTIC (VALVE) STENOSIS NONRHEUMATIC AORTIC (VALVE) STENOSIS Active [facility] Diagnosis Active 2019-03-17 11:47:00 Gary Marie Ischemic cardiomyopathy Isch emic cardiomyopathy 11/04/2018 05/19/2019 [facility] Problem 2018-10 04:09:20 2019-05-19 11:07:08 2019-05-19 11:07:08 Gary Marie 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 Ordering Clinician Indication Dosage Frequency Signature (SIG) Comments Components Source Hydralazine Hydrochloride 50 MG Oral Tablet 2020-05-11 15:59:00 Yes 50 mg = 1 tab, PO, BID, # 180 tab, 3 Refill(s), Pharmacy: [facility], 178.31, cm, 05/11/20 10:13:00 CDT, Height, 97.727, kg, 05/11/20 10:13:00 CDT, Weight Gary Marie carvedilol 25 mg oral tablet 2020-05-11 15:11:00 Yes 25 mg = 1 tab, PO, BID, 0 Refill(s) Gary Marie omeprazole 40 mg oral delayed release capsule 2020-05-11 15:11:0 0 Yes 40 mg = 1 cap, PO, Daily, # 30 cap, 1 Refill(s) Gary Marie Losartan 2019-03-01 14:00:00 No Notes: (Kevyn greenwood as: Mike) Gary Marie Aspirin 81 MG Enteric Coated Tablet 2019-02-28 18:13:00 Yes 81 mg = 1 tab, PO, Daily, 0 Refill(s) Gary geronimo vancomycin 2019-02-28 11:00:00 No Notes: TIME CRITICAL MEDICATION (Same As: Vancocin) For adult patients only: Round to nearest 250 mg per Medical Staff approval Gary Marie Vancomycin 2019-02-27 22:43:00 No Notes: TIME CRITICAL MEDICATION (Same As: Vancocin) For adult patients only: Round to nearest 250 mg per Medical Staff approval Gary Marie acetaminophen-codeine #3 2019-02-27 22:43:00 No Notes: Do not exceed 4gm/day of acetaminophen. (Same as: Tylenol with Codeine # 3) Gary Marie Miralax 2019-02-27 15:00:00 No Notes: Dissolve in 8 oz of water or juice. (Same as: Miralax) Gary Hare nn Lactulose 667 MG/ML Oral Solution 2019-02-27 14:36:00 No Notes: (Same as:Chronulac) Gary Marie Allopurinol 2019-02-27 14:00:00 No Notes: ( Same as: Zyloprim) Gary Marie Potassium Chloride 2019-02-27 14:00:00 No Notes: (Same as: K-Dur 20) "Do Not Crush" Give with food and full glass of water For patients unable to swallow tablet, dissolve in one half glass of water. Allow about 2 minutes for the tablets to disintegrate. Stir before giving to prepare slurry and administer. Please exclude Patient s with feeding tube less than 14 Maltese (Dobhoff, J-tube etc) and pediatric and patients. Gary Marie Magnesium Oxide 2019-02-27 14:00:00 No Notes: (Same as: Mag-Ox 400) Magnesium oxide [id number] elemental magnesium Dose=____mg magnesium oxide (___mg elemental magnesium) [facility] anderson Losartan 2019-02-27 14:00:00 No Notes: (Kevyn e as: Cozaar) [facility] Imdur 2019-02-27 14:00:00 No Notes: (Same as:Imdur) "Do Not Crush" Take on empty stomach/ full glass of water. Do not crush [facility] Aspirin 2019-02-27 14:00:00 No Notes: Do not crush or chew. (Same As: Ecotrin) Gary Zuletaann Furosemide 20 MG Oral Tablet 2019-02-27 14:00:00 No Notes: (Same as: Lasix) May cause GI upset. Give with food or milk. [facility] Dexilant 2019-02-27 14:00:00 No 60 mg, Route: PO, Drug form: DRC, Daily, Dosing Weight 93.636, kg, Start date: 02/27/19 9:00:00 CDT, Duration: 30 day, Stop date: 03/28/19 9:00:00 CDT [facility] orikhoa Marie Protonix 2019-02-27 12:30:00 No Notes: Tablet should not be chewed or crushed. (Same as: Protonix) [facility] heparin 2019-02-27 11:28:00 No Notes: porci ne heparin [facility] vancomycin 2019-02-27 11:00:00 No Notes: TIME CRITICAL MEDICATION (Same As: Vancocin) For adult patients only: Round to nearest 250 mg per Medical Staff approval [facility] sennosides, CUSTODIAL 2019-02-27 03:13:00 No Notes: (Same as: Senokot) [facility] Docusate Sodium 100 MG Oral Capsule [Colace] 2019-02-27 03:13:00 No Notes: (Same as: Colace) (Do Not Crush) [facility] Brilinta 2019-02-27 02:00:00 No Notes: (Kevyn e as: Brilinta) [facility] carvedilol 2019-02-27 02:00:00 No Notes: Give with food. (Same As: Coreg) [facility] Crestor 2019-02-27 02:00:00 No Notes: (Same As: Crestor) [facility] Hydralazine Hydrochloride 25 MG Oral Tablet 2019-02-27 02:00:00 No Notes: (Same as: Apresoline) May interfere w/enteral feedings Take With Food. [facility] Frank ferrous sulfate 2019-02-27 02:00:00 No Notes: Give with food. "Do Not Crush" [facility] Potassium Chloride 2019-02-26 23:00:00 No Notes: (Same as: KCL) Infuse no faster than 10 mEq/hr if given peripherally. [facility] potassium chloride 20 mEq oral tablet, extended release 2019-02-26 22:05:00 No Notes: (Same as : K-Dur 20) "Do Not Crush" Give with food and full glass of water For patients unable to swallow tablet, dissolve in one half glass of water. Allow about 2 minutes for the tablets to disintegrate. Stir before giving to prepare slurry and administer. Please exclude Patient s with feeding tube less than 14 Maltese (Dobhoff, J-tube etc) and pediatric and patients. Gary Marie Amiodarone 2019-02-26 22:00:00 No Notes: Same as: Cordaron, Pacerone [facility] Fentanyl 2019-02-26 21:52:00 No Notes: (Same as: Sublimaze) Preservative free. Gary Marie Acetaminophen 325 MG / Hydrocodone Bitartrate 5 MG Oral Tabl et [Hopkins 5/325] 2019-02-26 21:37:00 No Notes: (Same as: Hopkins 325/5) Do not exceed 4gm/day of acetaminophen. [facility] Ananya nn Calcium Gluconate 2019-02-26 21:34:00 No Notes: WASTE: F/P - Sink; E - Municipal Trash Bin [facility] Magnesium Sulfate 2019-02-26 21:34:00 No Notes: WASTE: F/P - Sink; E - Municipal Trash Bin [facility] Nicardipine 2019-02-26 20:58:00 No Notes: Same as: Cardene Concentration: (0.2 mg /1 ml ) [facility] Nitroglycerin 2019-02-26 20:27:00 No Notes: (Same as:Tridil) Final conc = 0.4 mg/ml. Premix bottle. Loly Marie Ondansetron 2019-02-26 16:22:00 No Notes: (Same as: Zofran) MEDICATION WASTE Product Size: 4 mg Product Wasted: ___ mg [facility] Flumazenil 2019-02-26 16:22:00 No Notes: (S jt as: Romazicon) [facility] Naloxone 2019-02-26 16:22:00 No Notes: Same as Narcan [facility] Fentanyl 2019-02-26 16:22:00 No Notes: (Same as: Sublimaze) Preservative free. Gary Marie propofol (ANES) 2019-02-26 16:05:00 No Route: IV, Drug form: INJ, ONCE, Stop date: 02/26/19 11:05:00 CDT Ivette porterrikhoa Marie protamine (ANES) 2019-02-26 16:00:00 No Route: IV, Drug form: INJ, ONCE, Stop date: 02/26/19 11:00:00 CDT Ivette Marie heparin (ANES) 2019-02-26 14:34:00 No Route: IV, Drug form: INJ, ONCE, Stop date: 02/26/19 9:34:00 CDT Il barbara Marie fentaNYL (ANES) 2019-02-26 14:18:00 No Route: IV, Drug form: INJ, ONCE, Stop date: 02/26/19 9:18:00 CDT Il barbara Marie propofol (ANES) 10 mg 2019-02-26 13:03:00 No Route: IV, Drug form: INJ, Start date: 02/26/19 8:03:00 CDT, Stop date: 02/26/19 9:03:00 CDT Gary Marie Sodium Chloride 0.9% IV (ANES) 1000 mL 2019-02-26 12:52:00 No Route: IV, Total Volume: 1,000, Start date: 02/26/19 7:52:00 CDT, Stop date: 02/26/19 8:52:00 CDT [facility] normal saline 0.9% IV 1,000 mL 2019-02-26 11:01:00 No 1,000 mL, Rate: 75 ml/hr, Infuse over: 13.3 hr, Route: IV, Dosing Weight 93.636 kg, Total Volume: 1,000, Start date: 02/26/19 6:01:00 CDT, Duration: 13 hr, Stop date: 02/26/19 19:00:00 CDT, 2.18, m2 Gary Marie DOBUTamine 50 mg + Dextrose 5% in Water IV 46 mL 2019-01-21 13:1 5:00 No Notes: (Same as: Dobutrex) Not for direct administrat ion- DILUTE. Gary Marie Vitamin D3 2000 intl units oral capsule 2019-01-16 22:03:00 Yes 2,000 IntlUnit = 1 cap, PO, Daily, # 100 cap, 3 Refill(s) Gary Marie Imdur 2018-11-28 15:00:00 No Notes: (Same as:Imdur) "Do Not Crush" Take on empty stomach/ full glass of water. Do not crush Gary Marie Hydralazine Hydrochloride 25 MG Oral Tablet 2018-11-28 15:00:00 No Notes: (Same as: Apresoline) May interfere w/enteral feedings Take With Food. Il barbara Marie Furosemide 20 MG Oral Tablet 2018-11-28 15:00:00 No Notes: (Same as: Lasix) May cause GI upset. Give with food or milk. Gary Marie Dexilant 2018-11-28 15:00:00 No Notes: Same as: Kapidex "Do Not Crush" Non-Formulary Gary Marie carvedilol 2018-11-28 15:00:00 No Notes: Give with food. (Same As: Coreg) [facility] Allopurinol 2018-11-28 15:00:00 No Notes: ( Same as: Zyloprim) [facility] Amiodarone 2018-11-28 15:00:00 No Notes: Same as: Gonzalo Fieldse [facility] Aspirin 81 MG Enteric Coated Tablet 2018-11-28 15:00:00 No Notes: Do not crush or chew. (Same As: Ecotrin) Il barbara Marie Brilinta 2018-11-28 15:00:00 No Notes: ([facility] e as: Brilinta) [facility] Potassium Chloride 2018-11-28 15:00:00 No Notes: (Same as: K-Dur 20) "Do Not Crush" Give with food and full glass of water For patients unable to swallow tablet, dissolve in one half glass of water. Allow about 2 minutes for the tablets to disintegrate. Stir before giving to prepare slurry and administer. Please exclude Patient s with feeding tube less than 14 M[place]ese (Dobhoff, J-tube etc) and pediatric and patients. [facility] Losartan 2018-11-28 15:00:00 No Notes: ([facility] e as: Cozaar) [facility] ticagrelor 90 mg oral tablet 2018-11-28 14:18:00 Yes 90 mg = 1 tab, PO, Q12H, # 180 tab, 3 Refill(s), Pharmacy: [facility] Gary Marie ticagrelor 90 mg oral tablet 2018-11-28 14:06:00 No 90 mg = 1 tab, PO, Q12H, # 180 tab, 3 Refill(s) Loly Marie Aspirin 81 MG Enteric Coated Tablet 2018-11-28 14:06:00 Yes 81 mg = 1 tab, PO, Daily, # 30 tab, 0 Refill(s) Gary Marie ticagrelor 90 mg oral tablet 2018-11-28 13:11:00 No 90 mg = 1 tab, PO, Q12H, # 180 tab, 0 Refill(s) Kerwinshahla charles Marie ferrous sulfate 2018-11-28 03:00:00 No Notes: Give with food. "Do Not Crush" Gary Marie Eliquis 2018-11-28 03:00:00 No Notes: Same as: Eliquis Gary Marie Crestor 2018-11-28 03:00:00 No Notes: (Same As: Crestor) Gary Marie NS (Bolus) IV 2018-11-28 02:56:00 No 250 mL, 250 ml/hr, Infuse Over: 1 hr, Route: IV, ONCE, Priority: STAT, Dosing Weight 95 kg, Start date: 11/27/18 20:56:00 ASSISTANT ENGINEER, Stop date: 11/27/18 20:56:00 ASSISTANT ENGINEER Gary Marie Atropine 2018-11-28 01:30:00 No 1 mg, Route: IVP, ONCE, Dosing Weight 95, kg, Start date: 11/27/18 19:30:00 ASSISTANT ENGINEER, Stop date: 11/27/18 19:30:00 ASSISTANT ENGINEER Gary Marie Hydralazine 2018-11-27 23:53:00 No Notes: (Same as: Apresoline) Push over 5 minutes Gary Marie Sodium Chloride 0.9% IV 250 mL 2018-11-27 23:06:00 No 250 mL, Rate: 50 ml/hr, Infuse over: 5 hr, Route: IV, Dosing Weight 95 kg, Total Volume: 250, Start date: 11/27/18 17:06:00 ASSISTANT ENGINEER, Duration: 24 hr, Stop date: 11/28/18 17:05:00 ASSISTANT ENGINEER, 2.2, m2 Gary Marie apixaban 2.5 MG Oral Tablet [Eliquis] 2018-11-27 18:38:00 Y es 2.5 mg, PO, Q12H, 0 Refill(s) Gary barbosa AMIODarone 100 mg oral tablet 2018-11-27 18:38:00 Yes 100 mg = 1 tab, PO, BID, # 60 tab, 0 Refill(s) Celio guillermo [facility] Rosuvastatin calcium 10 MG Oral Tablet [Crestor] 2018-11-27 18:38:00 Yes 10 mg = 1 tab, PO, Bedtime, # 90 tab, 1 Refill( s) Gary Marie Sodium Chloride 0.9% (Bolus) IV 2018-11-27 18:00:00 No 250 mL, 250 ml/hr, Infuse Over: 1 hr, Route: IV, 250, Drug form: INJ, ONCALL, Priority: Routine, Dosing Weight 95 kg, Start date: 11/27/18 12:00:00 ASSISTANT ENGINEER, Duration: 1 doses or times Gary Marie Sodium Chloride 0.9% IV 750 mL 2018-11-27 17:53:00 No 750 mL, Rate: 75 ml/hr, Infuse over: 10 hr, Route: IV, Dosing Weight 95 kg, Total Volume: 750, Start date: 11/27/18 11:53:00 ASSISTANT ENGINEER, Duration: 24 hr, Stop date: 11/28/18 11:52:00 ASSISTANT ENGINEER, 2.2, m2 Gary Marie sennosides, CUSTODIAL 8.6 MG Oral Tablet [Senna-Time] 2018-11-12 15:44 :00 Yes 8.6 mg = 1 tab, PO, Bedtime, 0 Refill(s) Gary Marie Diphenhydramine Hydrochloride 25 MG Oral Tablet [Benadryl] 2018-11-12 15:44:00 Yes 25 mg = 1 tab, PO, Bedtime, 0 R efill(s) Gary Marie ferrous sulfate 325 MG Oral Tablet 2018-11-12 15:44:00 Yes 325 mg = 1 tab, PO, Bedtime, 0 Refill(s) Gary Marie Elisha Move Free 2018-11-12 15:44:00 Yes BID , 0 Refill(s) Gary Marie rosuvastatin 10 mg oral tablet 2018-07-09 13:38:58 No 10 mg = 1 tab, PO, Bedtime, # 90 tab, 3 Refill(s), Pharmacy: [facility] Gary Marie Ticagrelor 60 MG Oral Tablet [Brilinta] 2017-12-24 18:37:00 Yes 60 mg = 1 tab, PO, BID, # 60 tab, 3 Refill(s), Pharmacy: [facility] [id number] Gary Zuletaann AMIODarone 100 mg oral tablet 2017-12-24 17:29:00 Yes 200 mg = 2 tab, PO, Daily, # 60 tab, 0 Refill(s), Pharmacy: [facility] [id number] Gary Zuletaann AMIODarone 100 mg oral tablet 2017-12-24 17:28:00 No 200 mg = 2 tab, PO, Daily, # 60 tab, 0 Refill(s) Josh Mike Aspirin 81 MG Enteric Coated Tablet 2017-12-24 17:22:00 Yes 81 mg = 1 tab, PO, Daily, # 90 tab, 3 Refill(s) Gary Marie AMIODarone 100 mg oral tablet 2017-12-24 17:22:00 No 200 mg = 2 tab, PO, Daily, # 60 tab, 0 Refill(s) Josh Mike prasugrel 10 mg oral tablet 2017-12-24 17:22:00 No 10 mg = 1 tab, PO, Daily, # 30 tab, 3 Refill(s) Loly Marie Nephro-Dario Rx 2017-12-24 17:22:00 Yes 1 tab, PO, Daily, 0 Refill(s) Gary Marie Nitroglycerin 0.4 MG Sublingual Tablet [Nitrostat] 2017-12 17:22:00 Yes 0.4 mg = 1 tab, SL, Q5Min, PRN Chest Jeffery n, # 100 tab, 0 Refill(s) Gary Marie rosuvastatin 10 mg oral tablet 2017-12-24 17:22:00 Yes 10 mg = 1 tab, PO, Bedtime, # 90 tab, 0 Refill(s) Gary Marie Vitamin D3 1000 intl units oral tablet 2017-12-24 17:22:00 Yes 2,000 IntlUnit = 2 tab, PO, Daily, # 30 tab, 0 Refill(s) Gary Marie carvedilol 12.5 mg oral tablet 2017-12-24 17:22:00 Yes 12.5 mg = 1 tab, PO, BID, # 180 tab, 1 Refill(s) Kerwin Marie losartan 25 mg oral tablet 2017-08-27 17:11:00 Yes 25 mg = 1 tab, PO, Daily, # 90 tab, 0 Refill(s) Loly Marie Rosuvastatin calcium 5 MG Oral Tablet [Crestor] 2017-05-30 16:16 :53 Yes 5 mg = 1 tab, PO, Bedtime, # 90 tab, 3 Refill(s), Pharmacy: [facility] Betamethasone 0.0005 MG/MG Augmented Topical Ointment 2017-05-01 15:05:00 Yes 1 appl, TOP, 0 Refill(s) Gary Marie carvedilol 3.125 mg oral tablet 2017-03-20 20:40:00 Yes 3.125 mg = 1 tab, PO, Q12H, # 60 tab, 3 Refill(s), Pharmacy: [facility] [id number] Gary Marie carvedilol 12.5 MG Oral Tablet [Coreg] 2017-03-20 20:14:38 Yes 12.5 mg = 1 tab, PO, BID, # 60 tab, 3 Refill(s), Pharmacy: [facility] [id number] [facility] Rosuvastatin calcium 5 MG Oral Tablet [Crestor] 2017-03-20 20:14 :00 Yes 5 mg = 1 tab, PO, Bedtime, # 30 tab, 3 Refill(s), Pharmacy: [facility] [id number] [facility] Hydralazine Hydrochloride 25 MG Oral Tablet 2017-03-06 19:19:00 Yes 25 mg = 1 tab, PO, BID, # 60 tab, 3 Refill(s) Gary Marie 24 HR Isosorbide Mononitrate 30 MG Extended Release Tablet [ Imdur] 2017-03-06 19:19:00 Yes 30 mg = 1 tab, PO, QAM, # 30 tab, 3 Refill(s) [facility] carvedilol 12.5 MG Oral Tablet [Coreg] 2017-03-06 19:19:00 Yes 12.5 mg = 1 tab, PO, BID, # 60 tab, 3 Refill(s) [facility] Furosemide 20 MG Oral Tablet 2017-03-06 19:17:00 Yes 3 tabs, PO, Daily, # 90 tab, 3 Refill(s) [facility] ever potassium chloride 2017-03-06 17:48:00 Yes 40 mEq, Daily, 0 Refill(s) Gary Marie metoprolol 100 mg oral tablet, extended release 2017-03-06 17:48 :00 No See Instructions, 1 tab PO morning .5 tab PO night, 0 Refill(s) Gary Marie Clotrimazole 2017-03-06 17:48:00 Yes 10 mg, PO, 5X Day, 0 Refill(s) Gary Marie Triamcinolone Acetonide 1 MG/ML Topical Cream 2017-03-06 17:48:0 0 Yes 1 appl, TOP, TID, PRN For rash, # 15 gm, 0 Refill(s) Gary Marie Metoclopramide 10 MG Oral Tablet 2017-03-06 17:48:00 Yes 10 mg = 1 tab, PO, BID, # 56 tab, 0 Refill(s) Celio Marie furosemide 80 mg oral tablet 2017-03-06 17:48:00 No 80 mg = 1 tab, PO, Daily, # 30 tab, 0 Refill(s) Loly Marie magnesium oxide 500 mg oral tablet 2017-03-06 17:48:00 Yes 500 mg = 1 tab, PO, Daily, # 10 tab, 0 Refill(s) Gary Marie pravastatin 80 mg oral tablet 2017-03-06 17:48:00 Yes 80 mg = 1 tab, PO, Bedtime, # 30 tab, 0 Refill(s) Celio Marie AMIODarone 100 mg oral tablet 2017-03-06 17:48:00 Yes 200 mg = 2 tab, PO, Daily, # 60 tab, 0 Refill(s) Me barbara Marie dexlansoprazole 60 MG Enteric Coated Capsule [Dexilant] 2017-03-06 17:48:00 Yes 60 mg = 1 cap, PO, Daily, # 30 day, 0 Re fill(s) Gary Marie clopidogrel 75 mg oral tablet 2017-03-06 17:48:00 Yes 75 mg = 1 tab, PO, Daily, # 30 tab, 0 Refill(s) Josh Mike allopurinol 300 mg oral tablet 2017-03-06 17:48:00 Yes 300 mg = 1 tab, PO, Daily, # 30 tab, 0 Refill(s) Me barbara Marie apixaban 2.5 MG Oral Tablet [Eliquis] 2017-03-06 17:48:00 Y es 2.5 mg = 1 tab, PO, BID, 0 Refill(s) [facility] Vital Signs Vital Name Observation Time Observation Value Comments Source Systolic (mm Hg) 2020-05-11 15:13:00 [facility] Diastolic (mm Hg) 2020-05-11 15:13:00 [facility] Heart Rate 2020-05-11 15:13:00 [facility] Respitory Rate 2020-05-11 15:13:00 [facility] [place] Temperature Oral (F) 2020-05-11 15:13:00 97.0 F [facility] Height 2020-05-11 15:13:00 178.31 cm [facility] Weight 2020-05-11 15:13:00 [facility] BMI Calculated 2020-05-11 15:13:00 [facility] Systolic (mm Hg) 2019-06-17 17:34:00 [facility] Diastolic (mm Hg) 2019-06-17 17:34:00 [facility] Heart Rate 2019-06-17 17:34:00 [facility] Respitory Rate 2019-06-17 17:34:00 [facility] Temperature Oral (F) 2019-06-17 17:34:00 97.7 F [facility] [place] Height 2019-06-17 17:34:00 178.05 cm [facility] Weight 2019-06-17 17:34:00 [facility] [place] BMI Calculated 2019-06-17 17:34:00 [facility] BMI Calculated 2019-04-14 15:41:00 [facility] [place] Weight 2019-04-14 15:41:00 [facility] [place] Height 2019-04-14 15:41:00 177.8 cm [facility] [place] Temperature Oral (F) 2019-04-14 15:41:00 97.8 F [facility] Respitory Rate 2019-04-14 15:41:00 [facility] [place] Heart Rate 2019-04-14 15:41:00 [facility] [place] Systolic (mm Hg) 2019-04-14 15:41:00 [facility] Diastolic (mm Hg) 2019-04-14 15:41:00 [facility] [place] BMI Calculated 2019-03-17 16:43:00 [facility] Weight 2019-03-17 16:43:00 [facility] [place] Temperature Oral (F) 2019-03-17 16:43:00 97.6 F [facility] Height 2019-03-17 16:43:00 177.8 cm [facility] [place] Systolic (mm Hg) 2019-03-17 16:43:00 [facility] [place] Diastolic (mm Hg) 2019-03-17 16:43:00 [facility] Respitory Rate 2019-03-17 16:43:00 [facility] Heart Rate 2019-03-17 16:43:00 [facility] Respitory Rate 2019-02-28 19:19:00 [facility] [place] Systolic (mm Hg) 2019-02-28 19:19:00 [facility] Diastolic (mm Hg) 2019-02-28 19:19:00 [facility] [place] Systolic (mm Hg) 2019-02-28 18:00:00 [facility] [place] Diastolic (mm Hg) 2019-02-28 18:00:00 [facility] Respitory Rate 2019-02-28 18:00:00 [facility] Respitory Rate 2019-02-28 17:00:00 [facility] [place] Systolic (mm Hg) 2019-02-28 17:00:00 [facility] [place] Diastolic (mm Hg) 2019-02-28 17:00:00 [facility] Temperature Oral (F) 2019-02-28 14:47:00 96.3 F [facility] Temperature Oral (F) 2019-02-28 09:00:00 96.6 F [facility] Temperature Oral (F) 2019-02-28 05:00:00 96.8 F [facility] BMI Calculated 2019-02-26 11:02:00 [facility] [place] Weight 2019-02-26 11:02:00 [facility] [place] Height 2019-02-26 11:02:00 180.34 cm [facility] Systolic (mm Hg) 2019-02-19 16:02:00 [facility] Diastolic (mm Hg) 2019-02-19 16:02:00 [facility] [place] Heart Rate 2019-02-19 16:02:00 [facility] Systolic (mm Hg) 2019-02-19 14:52:00 [facility] [place] Diastolic (mm Hg) 2019-02-19 14:52:00 [facility] [place] Heart Rate 2019-02-19 14:52:00 [facility] BMI Calculated 2019-02-19 13:57:00 [facility] Weight 2019-02-19 13:57:00 [facility] Height 2019-02-19 13:57:00 180.34 cm [facility] Height 2019-02-04 20:29:00 177.8 cm [facility] BMI Calculated 2019-02-04 20:29:00 [facility] Weight 2019-02-04 20:29:00 [facility] Temperature Oral (F) 2019-02-04 20:29:00 98.3 F [facility] Respitory Rate 2019-02-04 20:29:00 [facility] Heart Rate 2019-02-04 20:29:00 [facility] [place] Systolic (mm Hg) 2019-02-04 20:29:00 [facility] [place] Diastolic (mm Hg) 2019-02-04 20:29:00 [facility] [place] BMI Calculated 2019-01-21 12:38:00 [facility] [place] Weight 2019-01-21 12:38:00 [facility] Height 2019-01-21 12:38:00 180.34 cm [facility] Systolic (mm Hg) 2018-12-30 16:41:00 [facility] Diastolic (mm Hg) 2018-12-30 16:41:00 [facility] Height 2018-12-30 16:41:00 177.8 cm [facility] BMI Calculated 2018-12-30 16:41:00 [facility] [place] Temperature Oral (F) 2018-12-30 16:41:00 97.6 F [facility] Respitory Rate 2018-12-30 16:41:00 [facility] Heart Rate 2018-12-30 16:41:00 [facility] Weight 2018-12-30 16:41:00 [facility] Systolic (mm Hg) 2018-11-28 13:15:00 [facility] Diastolic (mm Hg) 2018-11-28 13:15:00 [facility] Temperature Oral (F) 2018-11-28 13:15:00 97.8 F [facility] Systolic (mm Hg) 2018-11-28 10:00:00 [facility] [place] Diastolic (mm Hg) 2018-11-28 10:00:00 [facility] [place] Systolic (mm Hg) 2018-11-28 08:00:00 [facility] Diastolic (mm Hg) 2018-11-28 08:00:00 [facility] Temperature Oral (F) 2018-11-27 18:30:00 97.8 F [facility] Height 2018-11-27 17:50:00 180.34 cm [facility] Weight 2018-11-27 17:50:00 [facility] BMI Calculated 2018-11-27 17:50:00 [facility] [place] Weight 2018-11-12 17:29:00 [facility] [place] BMI Calculated 2018-11-12 17:29:00 [facility] [place] Height 2018-11-12 17:29:00 177.8 cm [facility] Heart Rate 2018-11-12 17:29:00 [facility] Respitory Rate 2018-11-12 17:29:00 [facility] Temperature Oral (F) 2018-11-12 17:29:00 97.7 F [facility] Systolic (mm Hg) 2018-11-12 17:29:00 [facility] Diastolic (mm Hg) 2018-11-12 17:29:00 [facility] Height 2018-09-30 16:37:00 175.26 cm [facility] BMI Calculated 2018-09-30 16:37:00 [facility] [place] Weight 2018-09-30 16:37:00 [facility] Systolic (mm Hg) 2018-09-30 16:37:00 [facility] Diastolic (mm Hg) 2018-09-30 16:37:00 [facility] [place] Temperature Oral (F) 2018-09-30 16:37:00 98.2 F [facility] Respitory Rate 2018-09-30 16:37:00 [facility] Heart Rate 2018-09-30 16:37:00 [facility] [place] Height 2018-06-03 16:46:00 177.29 cm [facility] Weight 2018-06-03 16:46:00 [facility] BMI Calculated 2018-06-03 16:46:00 [facility] [place] Heart Rate 2018-06-03 16:46:00 [facility] [place] Temperature Oral (F) 2018-06-03 16:46:00 97.6 F [facility] Respitory Rate 2018-06-03 16:46:00 [facility] Systolic (mm Hg) 2018-06-03 16:46:00 [facility] Diastolic (mm Hg) 2018-06-03 16:46:00 [facility] [place] Height 2018-03-05 18:51:00 182.88 cm [facility] Weight 2018-03-05 18:51:00 [facility] [place] BMI Calculated 2018-03-05 18:51:00 [facility] Systolic (mm Hg) 2018-03-05 18:51:00 [facility] [place] Diastolic (mm Hg) 2018-03-05 18:51:00 [facility] Temperature Oral (F) 2018-03-05 18:51:00 97.6 F [facility] Respitory Rate 2018-03-05 18:51:00 [facility] [place] Heart Rate 2018-03-05 18:51:00 [facility] BMI Calculated 2017-12-24 16:20:00 [facility] Weight 2017-12-24 16:20:00 [facility] Height 2017-12-24 16:20:00 180.34 cm [facility] Systolic (mm Hg) 2017-12-24 16:20:00 [facility] Diastolic (mm Hg) 2017-12-24 16:20:00 [facility] Temperature Oral (F) 2017-12-24 16:20:00 97.2 F [facility] Respitory Rate 2017-12-24 16:20:00 [facility] [place] Heart Rate 2017-12-24 16:20:00 [facility] [place] Height 2017-09-04 14:55:00 180.34 cm [facility] BMI Calculated 2017-09-04 14:55:00 [facility] [place] Weight 2017-09-04 14:55:00 [facility] BMI Calculated 2017-09-04 14:21:00 [facility] Weight 2017-09-04 14:21:00 [facility] [place] Height 2017-09-04 14:21:00 180.34 cm [facility] Weight 2017-05-01 15:02:00 [facility] [place] BMI Calculated 2017-05-01 15:02:00 [facility] [place] Height 2017-05-01 15:02:00 182.88 cm [facility] Respitory Rate 2017-05-01 15:02:00 [facility] Temperature Oral (F) 2017-05-01 15:02:00 97.4 F [facility] Heart Rate 2017-05-01 15:02:00 [facility] Systolic (mm Hg) 2017-05-01 15:02:00 [facility] Diastolic (mm Hg) 2017-05-01 15:02:00 [facility] [place] BMI Calculated 2017-03-20 16:51:00 [facility] [place] Weight 2017-03-20 16:51:00 [facility] [place] Height 2017-03-20 16:51:00 182.88 cm [facility] Systolic (mm Hg) 2017-03-20 16:51:00 [facility] Diastolic (mm Hg) 2017-03-20 16:51:00 [facility] Respitory Rate 2017-03-20 16:51:00 [facility] Temperature Oral (F) 2017-03-20 16:51:00 97.8 F [facility] Heart Rate 2017-03-20 16:51:00 [facility] Weight 2017-03-06 17:46:00 [facility] BMI Calculated 2017-03-06 17:46:00 [facility] Systolic (mm Hg) 2017-03-06 17:46:00 [facility] Diastolic (mm Hg) 2017-03-06 17:46:00 [facility] [place] Temperature Oral (F) 2017-03-06 17:46:00 98 F [facility] Heart Rate 2017-03-06 17:46:00 [facility] [place] Respitory Rate 2017-03-06 17:46:00 [facility] [place] Height 2017-03-06 17:46:00 182.88 cm [facility] [place] Procedures Procedure Date / Time Performed [facility] 2016-01-23 00:00:00 [facility] Encounters Start Date/Time End Date/Time Encounter Type Admission Type Att[facility] Care Department Encounter ID Source 2019-02-26 05:37:00 Inpatient [facility] CAR [id number] [facility] 2020-05-11 09:38:00 2020-05-11 23:59:00 Outpatient Chad Hernandez [facility] [id number] 2020-05-11 09:38:00 2020-05-11 09:38:00 Outpatient [facility] CAR [id number] [facility] 2019-06-17 08:17:00 2019-06-17 23:59:00 Outpatient Chad Hernandez [facility] [id number] 2019-06-17 08:17:00 2019-06-17 08:17:00 Outpatient MH CAR [id number] [facility] 2019-04-14 10:17:00 2019-04-14 23:59:00 Outpatient Chad Hernandez [facility] [id number] 2019-04-14 10:17:00 2019-04-14 10:17:00 Outpatient MH CAR [id number] [facility] 2019-03-17 11:26:00 2019-03-17 23:59:00 Outpatient Chad Hernandez [facility] [id number] 2019-03-17 11:26:00 2019-03-17 11:26:00 Outpatient MH CAR [id number] [facility] 2019-02-04 14:57:00 2019-03-05 23:59:00 Outpatient Chad Hernandez [facility] [id number] 2019-02-26 05:37:00 2019-02-28 16:00:00 Outpatient Chad Hernandez [facility] [id number] 2019-02-19 08:55:00 2019-02-19 23:59:00 Outpatient Chad Hernandez [facility] [id number] 2019-02-19 08:55:00 2019-02-19 08:55:00 Outpatient MH CAR [id number] [facility] 2019-02-04 14:57:00 2019-02-04 14:57:00 Outpatient MH CAR [id number] [facility] 2019-01-21 07:26:00 2019-01-21 23:59:00 Outpatient Chad Hernandez [facility] [id number] 2019-01-21 07:26:00 2019-01-21 07:26:00 Outpatient MH CAR [id number] [facility] 2019-01-06 09:30:00 2019-01-06 23:59:00 Outpatient Chad Hernandez [facility] [id number] 2019-01-06 09:30:00 2019-01-06 09:30:00 Outpatient [facility] CAR [id number] [facility] 2018-12-30 11:29:00 2018-12-30 23:59:00 Outpatient David, Chad [facility] [id number] 2018-12-30 11:29:00 2018-12-30 11:29:00 Outpatient [facility] CAR [id number] [facility] 2018-11-27 11:38:00 2018-11-28 09:40:00 Outpatient David, Biswavaughnt [facility] [id number] 2018-11-27 11:38:00 2018-11-27 11:38:00 Outpatient [facility] CAR [id number] [facility] 2018-11-12 08:55:00 2018-11-12 23:59:00 Outpatient David, Michelat [facility] [id number] 2018-09-30 10:16:00 2018-10-29 23:59:00 Outpatient David, Chatowavaughnt [facility] [id number] 2018-09-30 10:16:00 2018-10-29 23:59:00 Outpatient David, Chatowavaughnt [facility] [id number] 2018-06-03 10:23:00 2018-06-03 23:59:00 Outpatient David, Michelat [facility] [id number] 2018-03-05 12:12:00 2018-03-05 23:59:00 Outpatient David, Biswavaughnt [facility] [id number] 2017-12-24 10:09:00 2017-12-24 23:59:00 Outpatient David, Biswajit [facility] [id number] 2017-09-04 12:21:00 2017-09-05 23:59:59 Outpatient [id number] 2017-09-04 08:20:00 2017-09-04 23:59:00 Outpatient David, Biswajit [facility] [id number] 2017-08-27 10:26:00 2017-08-27 23:59:00 Outpatient David, Biswajit [facility] [id number] 2017-05-30 11:14:00 2017-05-31 23:59:59 [place]patient [place] [id number] 2017-05-01 09:43:00 2017-05-01 23:59:00 Outpatient Chad Hernandez [facility] [id number] 2017-03-20 10:42:00 2017-03-20 23:59:00 Outpatient Chad Hernandez [facility] [id number] 2017-03-06 11:35:00 2017-03-06 23:59:00 Outpatient Chad Hernandez [facility] [id number] Results Test Description Test Time Test Comments Results Result Comments Source CARDIAC ENZYMES 2020-05-11 16:15:54 783 [facility] CHEM PANEL 2020-05-11 16:15:54 140 [facility] CHEM PANEL 2020-05-11 16:15:54 29 [facility] CHEM PANEL 2020-05-11 16:15:54 2.26 [facility] [place] CHEM PANEL 2020-05-11 16:15:54 32 [facility] [place] CHEM PANEL 2020-05-11 16:15:54 9.0 [facility] [place] CHEM PANEL 2020-05-11 16:15:54 7.2 [facility] [place] CHEM PANEL 2020-05-11 16:15:54 3.3 [facility] CHEM PANEL 2020-05-11 16:15:54 39 [facility] CHEM PANEL 2020-05-11 16:15:54 36 [facility] [place] CHEM PANEL 2020-05-11 16:15:54 91 [facility] CHEM PANEL 2020-05-11 16:15:54 0.5 [facility] CHEM PANEL 2020-05-11 16:15:54 Test Item B/C Ratio (test code = B/C Ratio) 13 1 6-25 [facility] HermannCHEM [id number] 16:15:543.9[facility] HermannCHEM PANEL 2020-05-11 16:15:54* Test Item Value Reference Range Interpretation Comments A/G Ratio (test code = A/G Ratio) 0.8 1 0.7-1.6 [facility] HermannCHEM [id number] 16:15:5426[facility] HermannCHEM PANEL 2020-05-11 16:15:23823Rwadtfha HermannCHEM MBAFQ4841-28-60 16:15:544.0[facility] HermannCHEM EXSMZ9360-03-41 16:15:87300Vuhdsafw HermannCHEM BBQGE7002-22-55 16:15:549.0[facility] ElggcopKXKBKGQEBY1388-88-59 16:15:547.7[facility] BFFKLAZXKJ2254-68-28 16:15:543.97[facility] EnzgjskRZQPRXBDWV2609-18-82 16:15:54 13.5[facility] DdhacekXGYBCVLVZL2936-18-68 16:15:5440.2[facility] HermannHEMATOLOGY 2020-05-11 16:15:69037.4[facility] PtaubbkCFRVADKGID8583-15-53 16:15:54* Test Item Value Reference Range Interpretation Comments MCH (test code = MCH) 34.0 pg 27.0-31.0 [facility] LmndseiFPHWHXMMIC3030-08-29 16:15:5433.6[facility] HermannHEMATOLOGY 2020-05-11 16:15:5415.0[facility] DwnmzhaOIGEVHJDXF3568-38-89 16:15:38046Qepifowi SwkwhxxTLUNRQIDCU3188-52-12 16:15:548.4[facility] DlzictgILKZKYAPVX4758-69-32 16:15:5471.9[facility] MytxflzEKJKOIRPUW7191-76-34 16:15:5413.5[facility] UMXDMUGNFO8439-28-86 16:15:548.1[facility] YhwndarUMKNMMZBTU0352-29-77 16:15:545.7 [facility] NlogblbKEDSCKCLPK9998-58-47 16:15:540.8[facility] HermannHEMATOLOGY 2020-05-11 16:15:545.5[facility] TbirfllYKDQWRPPZZ8961-73-57 16:15:541.0[facility] AuocjbwKGWKGKSBPL8127-49-78 16:15:540.6[facility] NnpyxooUEOETBGJSE8178-32-67 16:15:540.4[facility] SuddnebKKFEZGARSZ1733-76-97 16:15:540.1[facility] TKNBMJTDDK7792-04-44 16:15:541+ *ABN*(05/11/20 11:15 AM)[facility] HermannLIPIDS 2020-05-11 16:15:25245Zfgcobcu SydhaskIGULFS1995-54-63 16:15:87014Viysuetb CsiblbrZRIABH8277-17-66 16:15:5452[facility] VykcbysKLMXWN4163-68-07 16:15:54* Test Item Value Reference Range Interpretation Comments CHD Risk (test code = CHD Risk) 3.04 1 4.00-7.30 [facility] BfkrhbqOOKIHX0571-60-62 16:15:5480[facility] AlinigtWGWQFM4376-93-91 16:15:54* Test Item Value Reference Range Interpretation Comments VLDL (test code = VLDL) 26 1 [facility] HermannSPECIAL DGHULRTUQ6910-03-22 16:15:547.2[facility] HermannCARDIAC MQHDQCC2941-32-79 18:53:90776Liyuunog HermannCHEM SDLSP4210-94-72 18:53:21* Test Item Value Reference Range Interpretation Comments A/G Ratio (test code = A/G Ratio) 0.8 1 0.7-1.6 [facility]annCHEM VUOJB0311-02-48 18:53:21* Test Item Value Reference Range Interpretation Comments B/C Ratio (test code = B/C Ratio) 11 1 6-25 [facility]annCHEM [id number] 18:53:213.9[facility] HermannCHEM PANEL 2019-04-14 18:53:2110.0[facility] HermannCHEM OTAAI2730-42-12 18:53:2129[facility] HermannCHEM OFTSO7543-38-22 18:53:214.0[facility] HermannCHEM GEUKB6184-79-91 18:53:28986Xyoofmlo [facility]annCHEM SUAEE9666-02-40 18:53:2131[facility] HermannCHEM XWTGY8962-62-71 18:53:218.6[facility] HermannCHEM GMMKS9083-04-77 18:53:217.1 [facility]annCHEM ULZRT9007-29-32 18:53:2191[facility] HermannCHEM PANEL 2019-04-14 18:53:210.3[facility] HermannCHEM UISYP3307-75-32 18:53:2127[facility] HermannCHEM IWAJO8525-22-87 18:53:2126[facility] HermannCHEM DTUNQ7886-25-21 18:53:213.2[facility] HermannCHEM SQFKD7316-43-32 18:53:47482Fqwkqxho HermannCHEM YEEEO0926-68-89 18:53:212.11[facility] HermannCHEM FRFYN3211-23-63 18:53:48037 [facility]annCHEM RNSPP2926-26-81 18:53:2123[facility] HermannHEMATOLOGY 2019-04-14 18:53:2110.7[facility] UmzxpsqCMNPGFDIIA5257-92-34 18:53:213.7[facility] PngomotMOPUHVXIZI5555-91-84 18:53:210.8[facility] TgcerusKXWWLRIOKS0449-33-80 18:53:214.9[facility] BdwrawyAAYEOIJERC5186-36-78 18:53:210.8[facility] HKJJFLBDWL2972-57-71 18:53:2115.8[facility] RexxwoqBEVXDVFBVX2732-33-10 18:53:21 0.3[facility] IcgjfdaJKTMPVUWYA6712-08-71 18:53:210.6[facility] HermannHEMATOLOGY 2019-04-14 18:53:2167.8[facility] CopxfomPEYUAHUVAH2653-10-35 18:53:21* Test Item Value Reference Range Interpretation Comments MCH (test code = MCH) 33.2 pg 27.0-31.0 [facility] IlcidziZDFPHXALNF0261-50-63 18:53:2199.0[facility] HermannHEMATOLOGY 2019-04-14 18:53:2135.5[facility] DriakviXNJSZBKQBC1719-95-04 18:53:2116.1[facility] KnwxbmrJEOEMFNJWU9176-68-91 18:53:2133.6[facility] SnbqxtsTORSDKUJBI4605-02-62 18:53:219.1[facility] IzocibaPNVHCQALNS7337-04-74 18:53:99663Xcpkhigr [place] DROHJHWAVS7854-80-34 18:53:2111.9[facility] XemlywxPTRVAROKSV0721-44-20 18:53:21 5.4[facility] TazwsfcATWYYPEBLD4939-29-95 18:53:213.59[facility] HermannCHEM PANEL 2019-02-28 09:18:002.3[facility] HermannCHEM QWCBB7527-20-33 09:18:003.1[facility] HermannCHEM AWPLY0374-22-01 09:18:005.4[facility] HermannCHEM CJOWI6845-85-07 09:18:0023[facility] HermannCHEM DEMEN7998-46-07 09:18:002.9[facility] HermannCHEM ZZKHW1691-91-73 09:18:00* Test Item Value Reference Range Interpretation Comments A/G Ratio (test code = A/G Ratio) 0.9 1 0.7-1.6 [facility]annCHEM KPEQH0596-49-65 09:18:0060[facility] HermannCHEM PANEL 2019-02-28 09:18:000.7[facility] HermannCHEM OVZPB7469-28-02 09:18:005[facility] HermannCHEM MYHCY1539-15-54 09:18:002.5[facility] HermannCHEM XRDVP7388-01-20 09:18:0026[facility] HermannCHEM TZKLG3433-87-61 09:18:0027[facility] HermannCHEM SDYUW2475-44-41 09:18:008.4[facility] HermannCHEM OEDFJ9537-06-16 09:18:002.20 [facility]annCHEM MVJGJ4665-30-21 09:18:83697Fcsmcgdj HermannCHEM PANEL 2019-02-28 09:18:003.7[facility] HermannCHEM FYTLC4904-46-60 09:18:11931Pwqkxhan HermannCHEM ZUNIA8898-36-35 09:18:58052Qqdbenmx [facility]annCHE[facility] EYURS7171-08-78 09:18:0028[facility] HermannCHEM AREVM3830-90-39 09:18:0012.7[facility] HermannCHEM DRFDM5618-59-74 09:18:00* Test Item Value Reference Range Interpretation Comments B/C Ratio (test code = B/C Ratio) 13 1 6-25 [facility] ZubzakxCIWTGMEJPX4523-15-77 09:18:008.6[facility] HermannHEMATOLOGY 2019-02-28 09:18:0097[facility] XllxvzxNGENYBTWIP8017-72-02 09:18:0016.2[facility] ZtijilqHQHNTDMHQN4411-94-96 09:18:0096.9[facility] JvnoujdSDUNQTNSST9229-95-12 09:18:00* Test Item Value Reference Range Interpretation Comments MCH (test code = MCH) 33.1 pg 27.0-31.0 [facility] EtztejhBYYDMRILCB5172-34-96 09:18:0034.2[facility] HermannHEMATOLOGY 2019-02-28 09:18:003.06[facility] IaeyfcbESEZQUXBES4697-69-40 09:18:0010.1[facility] IrtmgsoRFSTROHFEU3063-98-80 09:18:0029.6[facility] KtzimtoZICJCHGDEZ6930-74-73 09:18:008.2[facility] BickzvkPMFSCSOQPG9234-91-87 09:18:00* Test Item Value Reference Range Interpretation Comments INR (test code = INR) 1.16 1 0.85-1.17 [facility] XfmkanaPHPNNOISSH1732-21-46 09:18:00* Test Item Value Reference Range Interpretation Comments PTT (test code = PTT) 34.5 s 22.9-35.8 [facility] VofslkiDRNNXQOGTG4443-73-45 09:18:000.53[facility] HermannHEMATOLOGY 2019-02-28 09:18:50944Umpwassk OtszreuAFERWLATPZ6988-36-02 09:18:00* Test Item Value Reference Range Interpretation Comments PT (test code = PT) 14.6 s 12.0-14.7 [facility] LqxagwbWPLRUACWIC5222-61-53 09:18:00* Test Item Value Reference Range Interpretation Comments Thrombin Time (test code = Thrombin Time) 16.3 s 15.0-21.2 [facility] ZhtlobbPQPLVXBJNI2462-74-45 09:18:000.5[facility]annHEMATOLOGY 2019-02-28 09:18:0078.8[facility] KdubgpkZMXHGJWLED3540-66-35 09:18:007.4[facility] JzzajkgHIIEQQFWYV6585-33-69 09:18:0011.5[facility] FhskgxdYTTAPZKJNW1342-73-04 09:18:001.8[facility] GkizrtmMQMYJJTDVM2350-61-63 09:18:006.4[facility] XNURFIXDTN4135-52-27 09:18:000.6[facility] PhewiptUULCFQVZNF3118-62-72 09:18:000.9 [facility] ArzpbsbSBKFCAPCEA2547-28-01 09:18:000.1[facility] HermannPARATHYROID AFNLLDA3215-45-43 09:18:001.11[facility]annPARATHYROID THDSESS2775-05-44 09:18:001.12[facility] VcrlvnkCETIQJODQE3353-30-73 17:09:0011.3[facility] CARDIAC UKHMXKD5133-17-61 07:01:89746Zmkdwwmy HermannCHEM EUTFZ3711-58-07 07:01:003.3[facility]annCHEM RQFYY9023-61-60 07:01:002.5[facility]annCHEM GSVUO6775-69-34 07:01:005.3[facility]annCHEM DXHFL2209-09-25 07:01:009 [facility]annCHEM LTDLA2775-88-64 07:01:000.7[facility]annCHEM PANEL 2019-02-27 07:01:0063[facility]annCHEM BBQQY4542-36-90 07:01:0024[facility]annCHEM GMURK9774-19-53 07:01:0029[facility]annCHEM QRBJH4685-20-96 07:01:00* Test Item Value Reference Range Interpretation Comments A/G Ratio (test code = A/G Ratio) 0.9 1 0.7-1.6 [facility]annCHEM SCYQY3837-66-09 07:01:002.8[facility]annCHEM PANEL 2019-02-27 06:30:0028[facility] HermannCHEM XFFTR7216-30-40 06:30:004.0[facility]annCHEM CMLVW4442-54-91 06:30:57185Mwlcmesc HermannCHEM BJZMK6706-69-13 06:30:0023[facility]annCHEM WMFSM9548-05-44 06:30:002.10[facility]annCHEM OSTYL7345-62-14 06:30:83445Xrtcnkdi HermannCHEM DJSDS2077-37-97 06:30:58621 [facility]annCHE[facility] YYRJK7744-08-96 06:30:008.3[facility]annCHEM PANEL 2019-02-27 06:30:0013.0[facility]annCHEM FHVWV5488-36-44 06:30:00* Test Item Value Reference Range Interpretation Comments B/C Ratio (test code = B/C Ratio) 13 1 6-[address] [facility] [address] QNMWO1824-05-62 06:30:002.2[facility]annCHEM PANEL 2019-02-27 05:51:000.1[facility] KqjncjzHZSGEARLWS1137-02-84 05:51:00* Test Item Value Reference Range Interpretation Comments Thrombin Time (test code = Thrombin Time) 17.6 s 15.0-21.2 [facility]DBDWTFDGHX8876-27-95 05:51:00* Test Item Value Reference Range Interpretation Comments PTT (test code = PTT) 29.2 s 22.9-35.[address] [facility] HospitalJawtsfcETJNOKFMUA9854-39-59 05:51:87000Gznafqhx HermannHEMATOLOGY 2019-02-27 05:51:00* Test Item Value Reference Range Interpretation Comments INR (test code = INR) 1.29 1 0.85-1.17 [facility] CenterXhjfisvIYJLPEVZMW8890-12-53 05:51:000.64[facility] CenterannHEMATOLOGY 2019-02-27 05:51:00* Test Item Value Reference Range Interpretation Comments PT (test code = PT) 15.8 s 12.0-14.7 [facility] CenterXkhnqqyQLFOYSDUBO5580-72-92 05:51:0034.2[facility]annHEMATOLOGY 2019-02-27 05:51:0096.7[facility] DemxfsfDYWJZLEXUB0419-32-61 05:51:00* Test Item Value Reference Range Interpretation Comments MCH (test code = MCH) 33.1 pg 27.0-31.0 [facility] GcdukndMMGSCNDUXP6213-16-46 05:51:0016.5[facility]ann[facility]MATOLOGY 2019-02-27 05:51:78306Sijzfxaa YgjklqvNCMAQWOCSI4777-63-77 05:51:008.5[facility] TmmlebtHYAHAVAIBA3999-89-66 05:51:0030.9[facility] DzkregoYNCWCVXIPY7651-99-21 05:51:0010.6[facility] LspusgmKIOTEXMEKU9200-18-11 05:51:003.20[facility] TVNVQRTLML8559-21-07 05:51:007.0[facility] StrsryrDOMXPHVUGQ7627-50-30 05:51:000.5 [facility] RuwtbphZPGEMUAAJC7128-85-06 05:51:000.7[facility] HermannHEMATOLOGY 2019-02-27 05:51:007.7[facility] SsirnylEMWMSOGWMF5510-96-94 05:51:000.5[facility] GuuzntnXVWCFVXSMO6384-68-05 05:51:005.7[facility] VqwyubxFQJQEULBEW7341-70-18 05:51:009.5[facility] QegsqdxMFLPZFUQLP6796-08-71 05:51:000.7[facility] YAEVWOUHJX9528-17-75 05:51:0081.6[facility] HermannPARATHYROID AQEVVBQ1913-56-74 05:51:001.05[facility] HermannPARATHYROID ZUGMYJR4549-29-02 05:51:001.00[facility] HermannCHEM SRVXK8759-72-48 20:31:001.7[facility] HermannCHEM ZDVLC5244-62-07 20:31:0039[facility]annCHEM UFXUJ4862-08-33 20:31:36904Hwqnwjeo HermannCHEM WLKXR6359-07-00 20:31:0023[facility] HermannCHEM NJDUO8190-38-23 20:31:001.65 [facility]annCHEM OASAX3731-95-70 20:31:0022[facility]annCHEM PANEL 2019-02-26 20:31:006.7[facility]annCHEM JWTQX8741-34-11 20:31:0012.3[facility]annCHEM TNAZX1132-91-55 20:31:88379Zuomgpiy HermannCHEM RYWKR8270-59-25 20:31:003.3[facility] HermannCHEM TDVXJ9594-58-48 20:31:87022Unvasspf HermannCHEM UPUAQ0625-29-32 20:31:002.9[facility] PeoilugSQKUVTZDXW7820-76-33 20:31:000.77 [facility] HkibnuwAIIKOOFAWY9660-20-46 20:31:00* Test Item Value Reference Range Interpretation Comments PTT (test code = PTT) 28.1 s 22.9-35.[address] [facility] HospitalFyyyuyrAAGFCUKFUR4603-40-29 20:31:00* Test Item Value Reference Range Interpretation Comments PT (test code = PT) 14.8 s 12.0-14.[address] [facility] HospitalBdrtqcaUEFQGPDAQV8002-54-99 20:31:00* Test Item Value Reference Range Interpretation Comments INR (test code = INR) 1.18 1 0.85-1.[address] [facility] HospitalQcbmldzOJCWMLYZNE5077-00-46 20:31:86863Gdiehziy HermannHEMATOLOGY 2019-02-26 20:31:00* Test Item Value Reference Range Interpretation Comments Thrombin Time (test code = Thrombin Time) 19.2 s 15.0-21.[address] [facility] [address] HospitalAesukzcGGDJENLHCO4229-06-17 20:31:008.6[facility]annHEMATOLOGY 2019-02-26 20:31:51792Ioqubjrh RhpopjnMVYFCHJLLE4079-24-97 20:31:0016.3[facility] KrqzqdoCAKXFEAQTF5241-76-77 20:31:0034.2[facility] VfnnvycZRQAEBAIVZ1414-24-46 20:31:00* Test Item Value Reference Range Interpretation Comments MCH (test code = MCH) 33.2 pg 27.0-31.[address] [facility] [address] HospitalGfuqwipLKRPOFYBTR5580-14-83 20:31:0096.9[facility]annHEMATOLOGY 2019-02-26 20:31:0034.6[facility] GhirbtnFLQHPFLOXX4426-23-74 20:31:003.57[facility] ZfxalkdTAXJYKXPEL6367-96-48 20:31:0010.3[facility] TgphqujIRRFMGHLLX0108-63-33 20:31:000.1[facility] FwjjlpnMCKZBRIRGP5160-97-58 20:31:000.8[facility] DMLDBVCMKZ9441-28-25 20:31:000.7[facility] AzzkqtwLZFLTVBJZR4395-67-23 20:31:008.6 [facility] XsikzfzZBCIISDQPK7564-48-69 20:31:000.3[facility]annHEMATOLOGY 2019-02-26 20:31:000.7[facility] NozjojsIYZSNFVYVS0228-59-80 20:31:008.1[facility] SqbxwbhAVHANWZLDX1859-39-98 20:31:007.1[facility] DhzonpiHZIWZLKTSM2001-19-21 20:31:0083.8[facility] HermannPARATHYROID VOBRSYF8953-60-48 20:31:001.09[facility] HermannPARATHYROID RNQGMJB8551-31-91 20:31:001.11[facility]annHEMATOLOGY 2019-02-26 18:09:000.1[facility]annBL[facility] B[facility] QEPBCKS4005-10-79 18:06:00 Product available (02/26/19 1:06 PM)[facility] HospitalZnubwslIATBOXSVYX2829-00-08 16:36:00 0.1[facility] ApuvlyoWKMJRHIILW0844-43-37 15:40:00* Test Item Value Reference Range Interpretation Comments POC Activated Clotting Time (test code = POC Activated Clotting Gianluca e) 137 s [facility] KauvfzpJMOMBWHODR8812-67-11 14:54:00* Test Item Value Reference Range Interpretation Comments POC Activated Clotting Time (test code = POC Activated Clotting Gianluca e) 278 s [facility] ZvbyjjrEWYCTVHWSF2102-21-85 14:20:00* Test Item Value Reference Range Interpretation Comments POC Activated Clotting Time (test code = POC Activated Clotting Gianluca e) 288 s [facility] XCLDMPZ2639-81-22 12:31:00Product available (02/26/19 7:31 AM)[facility]BL[facility] JHQYEHC5128-82-58 12:31:00Product available (02/26/19 7:31 AM)[facility] QTZQYQW9949-20-16 11:06:00Negative (02/26/19 6:06 AM)[facility] GjijeflKJILULSSJF6526-15-35 11:05:000.1[facility] CHEM KENIK1504-81-85 19:19:3924[facility] HermannCHEM KEBBB3862-07-71 19:19:3928 [facility]annCHEM BFRTL2785-36-60 19:19:398.6[facility] HermannCHEM PANEL 2019-02-24 19:19:38656Ypscfrri HermannCHEM FQVGA5311-39-83 19:19:394.1[facility] HermannCHEM UCSKX6331-82-55 19:19:65492Dasaybvo HermannCHEM EUNUA6680-39-87 19:19:399.1[facility]annCHEM IZKYP0647-69-75 19:19:392.46[facility]annCHEM WWUUK5790-11-54 19:19:3930[facility]annCHEM OSOEB0514-50-33 19:19:48289 [facility]annCHEM DGFJJ7539-51-31 15:48:0029[facility] HermannCHEM PANEL 2019-02-19 15:48:002.1[facility] HermannCHEM WGWIH9865-26-27 22:02:58* Test Item Value Reference Range Interpretation Comments A/G Ratio (test code = A/G Ratio) 0.8 1 0.7-1.6 [facility]annCHEM CVLAO8870-71-81 22:02:586.8[facility]annCHEM PANEL 2019-02-04 22:02:58* Test Item Value Reference Range Interpretation Comments B/C Ratio (test code = B/C Ratio) 16 1 6-25 [facility]annCHEM YAIZD2523-78-24 22:02:583.9[facility]annCHEM PANEL 2019-02-04 22:02:31072Ejgtdnws HermannCHEM WWUII1480-90-30 22:02:5836[facility]annCHEM YWVPU9463-37-80 22:02:36697Wdcbbxxm HermannCHEM CXGSO8634-32-81 22:02:583.8[facility]annCHEM XFXUH0168-37-91 22:02:18012Mquqaaym HermannCHEM VSSNG8586-13-22 22:02:588.7[facility]annCHEM INGKS1186-50-36 22:02:587.2 [facility]annCHEM MYAUP3286-45-26 22:02:5832[facility]annCHEM PANEL 2019-02-04 22:02:5886[facility] HermannCHEM FTAIJ8940-85-06 22:02:580.3[facility]annCHEM RLSGV3633-82-38 22:02:583.3[facility] HermannCHEM VGKBD2142-71-30 22:02:5845[facility]annCHEM VAUKB6798-87-60 22:02:5829[facility]annCHEM YGEHG1866-69-43 22:02:582.27[facility] HermannCHEM IYNAF8297-40-51 22:02:5826 [facility] AumbcagXQLWYOXQDZ7515-64-64 22:02:583.73[facility]annHEMATOLOGY 2019-02-04 22:02:5812.3[facility] MmetqizKTISKHPKGJ8257-34-92 22:02:5836.9[facility] YodghwsTWYPFFUOSA7437-24-90 22:02:5815.5[facility] LishyclDTSHELFINS4704-47-60 22:02:5898.9[facility] TbgcvrcMRYFKFKSRA2181-00-80 22:02:58* Test Item Value Reference Range Interpretation Comments MCH (test code = MCH) 33.0 pg 27.0-31.0 [facility] KirrdjxNXOSDFYBEV4034-95-93 22:02:88977Ljakrncz HermannHEMATOLOGY 2019-02-04 22:02:5833.3[facility] YgdbuuxLCVOKNYYCS4657-39-13 22:02:586.3[facility] YmwozpjIAROWOTLEI1096-86-09 22:02:588.8[facility] GcspmxtPBCCOMWMNU2282-70-30 22:02:5867.2[facility] ZerzdaiTTBJIUBPDC2380-44-87 22:02:584.3[facility] HARGTLDFMQ2683-33-78 22:02:5817.4[facility] JyjfxsiCBULWPWCNP7023-80-00 22:02:58 10.3[facility] ZopombyXEKQZYJZGD1347-97-25 22:02:584.3[facility] HermannHEMATOLOGY 2019-02-04 22:02:581.1[facility] WhrdrtwEIHFOQXTBJ3946-87-00 22:02:580.7[facility] JqjxaroKVDYJEUKTO1401-35-02 22:02:580.8[facility] PumyglwVUSADCSRGD0372-08-96 22:02:580.1[facility] WfkctqxLCQZGQELMM6657-35-99 22:02:580.3[facility] HermannCHEM YMDPC8803-57-92 11:08:002.1[facility] HermannCHEM IQVPY1608-25-79 11:08:004.0 [facility]annCHEM KVZXZ0801-77-27 11:08:0027[facility] HermannCHEM PANEL 2018-11-28 11:08:91127Vnkrnavn HermannCHEM SNMKF0304-02-06 11:08:17051Xevxxofc HermannCHEM CSZKP7219-81-61 11:08:68634Woshsggz HermannCHEM LCPEC2549-64-93 11:08:002.20[facility] HermannCHEM FPXMW2245-65-42 11:08:0027[facility] HermannCHEM JYJYO5680-20-95 11:08:008.0[facility] HermannCHEM MFATN2027-06-88 11:08:004.2 [facility]annCHEM LJPKT0726-88-80 11:08:0026[facility] HermannCHEM PANEL 2018-11-28 11:08:0010.2[facility] MfvruosEWCPCFSXDW8134-53-53 11:08:007.6[facility] BlsrrmgDMJGYQQDXS9336-09-74 11:08:003.23[facility] FfkwotnFOBGNFYJTZ2361-75-85 11:08:0010.7[facility] KjgcatnGXEWQXHZZC9748-43-23 11:08:0033.8[facility] ZQFDRSHOBP0299-69-68 11:08:0014.5[facility] LojhxqwRLXMSEGBTI3886-35-35 11:08:00 31.7[facility] YntmxgkEGCXKVYYTN6940-23-38 11:08:0098.2[facility] HermannHEMATOLOGY 2018-11-28 11:08:00* Test Item Value Reference Range Interpretation Comments MCH (test code = MCH) 33.2 pg 27.0-31.0 [facility] HcttdknSTRZZYWHNA5351-29-19 11:08:87061Hozmdjgq HermannHEMATOLOGY 2018-11-28 11:08:008.2[facility] OyuomzfCCWCNONMGT7890-91-05 11:08:000.7[facility] IhnlnkoWFBORQILGW9757-42-33 11:08:000.8[facility] QxrzdlzQAMWUSMKPG5167-31-99 11:08:000.9[facility] SfrzdtaOAVXDHDYQY5109-93-60 11:08:006.0[facility] OPFCYDMYVB3537-06-23 11:08:0078.8[facility] LdcmwduFEOGSPRZPL1976-12-83 11:08:00 11.3[facility] YtofhtwBEYXDYXWWX1770-64-04 11:08:008.4[facility] HermannHEMATOLOGY 2018-11-28 11:08:000.6[facility] IdyodygPBEMJYATEA1633-05-75 11:08:000.1[facility] UppskapVPPRPMGQMC4805-29-12 11:08:000.1[facility] GchtiuiFMGMZXDPMY7572-55-75 04:19:000.4[facility] ZyivyitSZHJACUADQ4268-16-91 04:19:000.8[facility] KTKYMEVPNI9116-33-67 04:19:000.1[facility] NhzcwvfUNQNDZEGRF7620-11-22 04:19:000.1 [facility] DwgfwttMTCXRWHQRI2214-27-11 04:19:0086.7[facility] HermannHEMATOLOGY 2018-11-28 04:19:008.5[facility] EnvwbspDZNVOSYQGE6300-28-86 04:19:000.5[facility] JcbtfxfOLMMMJSLNJ7367-41-71 04:19:000.7[facility] CqrdtjxCMSCUVYJMO6743-11-26 04:19:004.2[facility] WxbdmstOHWWLNGYIT5552-74-68 04:19:007.9[facility] APYECLSHKI7935-08-33 04:19:0014.7[facility] HbaodwvLILMATFQZZ8424-25-73 04:19:00 33.7[facility] EzsltjfDWQKKFIINW8865-36-81 04:19:00* Test Item Value Reference Range Interpretation Comments MCH (test code = MCH) 33.3 pg 27.0-31.0 [facility] WcmuhieALLRBFUPOS8815-53-68 04:19:97941Pfdaxzmt HermannHEMATOLOGY 2018-11-28 04:19:008.4[facility] BrpjixqNYFYNVBTVQ6246-70-95 04:19:0098.7[facility] SsfexzqSSMJLVOFYY0872-31-18 04:19:003.65[facility] PiuvizwFMHSCTNTHU4447-99-58 04:19:0036.0[facility] WgqbqchLRJEAGFPGR6072-04-04 04:19:0012.2[facility] HNBLSIDMAR2770-58-83 04:19:009.8[facility] ZulmrdsUICRZLPCDR9209-51-98 01:17:009.0 [facility] YntrybfFFLGVBWEYZ5895-74-08 01:17:0026.9[facility]annHEMATOLOGY 2018-11-28 01:17:56402Onmbregh BwisibrNAMBWXSJVJ6409-84-82 01:17:00* Test Item Value Reference Range Interpretation Comments POC Activated Clotting Time (test code = POC Activated Clotting Gianluca e) [address] FBHSLRW1639-98-49 18:02:00Negative (11/27/18 12:02 PM) [facility]annCHEM YGEUR4537-58-11 18:02:002.1[facility] HermannELECTROLYTES 2018-11-27 18:02:0011.5[facility] VjhaucbKUSDUPCMTBLT2257-64-13 18:02:0025[facility] IvdcufkHRAOAMIMDFXK9388-55-53 18:02:0031[facility] NewvqgzBAQZGMRNFPVD5714-50-31 18:02:009.0[facility] PtyhlzaCDWGDSWUOSQX0515-41-25 18:02:92278Pzxwzehn [place] MVBJJQKSCPLH5480-48-55 18:02:05739Edlfprre XfzaxhoFKRQHLZMZRVJ3250-17-12 18:02:004.5[facility] OepigmfZNISMLGTJGKG1333-02-43 18:02:002.36[facility] SXPHPEGNLHAD7700-16-13 18:02:0028[facility] FzmbcjvXTNYOLQVEJMG7808-51-44 18:02:00 120[facility] TrqrasjSSOAGRSICI3617-22-46 18:02:004.6[facility]annHEMATOLOGY 2018-11-27 18:02:000.9[facility] XbkdgriALBYGMJZWU0365-72-08 18:02:002.4[facility] TvwycmpQRGETJZWYN5304-37-05 18:02:008.1[facility] SmgdhtzSJCABMPSPN5331-76-61 18:02:0014.3[facility] MxwdrddQSFYOKZUML9569-17-68 18:02:0074.3[facility] DAKPQFUULU0793-33-76 18:02:000.9[facility] KcmttbbRMRUAAZJDT8926-75-28 18:02:000.1 [facility] KhmfyqyXABKNEKKMX4496-55-30 18:02:000.1[facility] HermannHEMATOLOGY 2018-11-27 18:02:000.5[facility] KybrdfzEMGFNVYVMZ1553-97-53 18:02:00* Test Item Value Reference Range Interpretation Comments PT (test code = PT) 13.4 s 12.0-14.7 [facility] XtbdqqoATSHPXAWMB5102-53-62 18:02:00* Test Item Value Reference Range Interpretation Comments PTT (test code = PTT) 27.7 s 22.9-35.8 [facility] OpdephqOSVPRAVVYH6082-04-26 18:02:00* Test Item Value Reference Range Interpretation Comments INR (test code = INR) 1.04 1 0.85-1.17 [facility] MhjuavoNAFYLPJKOZ9363-13-83 18:02:00* Test Item Value Reference Range Interpretation Comments MCH (test code = MCH) 33.4 pg 27.0-31.0 [facility] GbqtxytZEAYRMOQTW1715-09-02 18:02:0097.9[facility] HermannHEMATOLOGY 2018-11-27 18:02:008.5[facility] AwstetnZRPYHJZCBR2602-35-31 18:02:0034.1[facility] AvgbqiuVRGGPCRUBZ3530-17-63 18:02:0014.3[facility] FwgwmvzXEJVAHVDFK9617-05-35 18:02:006.2[facility] ZcxubaqQVCBWAQBLE8680-17-33 18:02:004.13[facility] CHEST 2 LCXUB8781-63-34 14:51:00 [place] [address] Patient Name: CELI SARMIENTO MR #: [id number] : 1940 Age/Sex: 78/M Req #: [id number] Adm Physician: Ordered by: RINA VASQUEZ MD Report #: [id number] Location: [facility] Room/Bed: Procedure: [id number] D X/CHEST 2 VIEWS Exam Date: 11/06/18 Exam Time: 1300 REPORT STATUS: Signed EXAMINA TION: PA and lateral views of the chest. COMPARISON: None CLINICAL HIS TORY: Congestive heart failure DISCUSSION: Lines/tubes: None. Lungs: Lower lung atelectasis. No interstitial edema. Pleura: Small e ffusions. Heart and mediastinum: Prominent heart size. Bones and soft tissues: No acute bony abnormalities. IMPRESSION: Mild lower lung atelectasis and small effusions. No pulmonary edema. Sign ed by: Dr. Chris Gannon M.D. on 11/06/2018 2:52 PM Dictated By: CHRIS GANNON MD 51 Tr anscribed By: MASTER on 11/06/181451 COPY TO: RINA VASQUEZ MD US PELVIC (NON OB) HAGAN OR F/U [place] [address] Patient Name: CELI SARMIENTO MR #: [id number] : 1940 Age/Sex: 77/M Req #: [id number] Adm Physician: Ordered by: ZEFERINO NGUYEN MD Report #: [id number] Location: US Room/Bed: Procedure: [id number] US/US PELVIC (NON OB) HAGAN O R F/U Exam Date: 10/18/17 Exam Time: 1208 REPO RT STATUS: Signed EXAM: Renal Ultrasound INDICATION: CHRONIC KIDNEY DISEA SE STAGE III COMPARISON: None TECHNIQUE: Transverse and longitudinal imag es of the kidneys and bladder were obtained. FINDINGS: Right Kidney: Length: 10.8 cm Appearance: Increased echogenicity. Collecting system: No hydronephrosis Stones: None Cyst/Mass: Anechoic lesion with septa tion in the lower pole measures 1.7 x 1.5 x 1.3 cm consistent with a mildly co mplex cyst. Hypoechoic area in the interpolar region measures 1.4 x 1.4 x 1.2 cm, possibly a prominent pyramid. Small anechoic area in the lower pole measur es 0.9 x 0.7 x 0.9 cm. Left Kidney: Length: 9.6 cm Appearance: Increas ed echogenicity. Collecting system: Mild hydronephrosis Stones: None Cys t/Mass: 0.7 x 0.6 x 0.7 cm cyst in the lower pole. Bladder: Irregular th ickened urinary bladder wall measuring up to 0.6 cm in thickness.. Small volum e post void residual. The prostate measures 2.2 x 1.9 x 4.0 cm with a volume o f 8.9 cc. IMPRESSION: 1. Increased echogenicity of the renal cortex bi laterally suggestive of medical renal disease. 2. 1.5 cm mildly complex lowe r pole right renal cyst. 3. Mild bladder trabeculation. Signed by: Dr. Roland Julian M.D. on 10/18/2017 4:22 PM Dictated By: DANIEL JULIAN MD, MD 21 Transcr ibed By: MASTER on 10/18/171621 COPY TO: ZEFERINO NGUYEN MD US RENAL RETROPERITONEAL COMP [place] [address] Patient Name: CELI SARMIENTO MR #: [id number] : 1940 Age/Sex: 77/M Req #: [id number] Adm Physician: Ordered by: ZEFERINO NGUYEN MD Report #: [id number] Location: Room/Bed: Procedure: [id number] US/US RENAL RETROPERITONEAL COMP Exam Date: 10/18/17 Exam Time: 1208 REPO RT STATUS: Signed PROCEDURE: US RETROPERITONEAL ( KIDNEY ). EXAM: Tio couch Ultrasound INDICATION: CHRONIC KIDNEY DISEASE STAGE III COMPARISON: None TECHNIQUE: Transverse and longitudinal images of the kidneys and bladder we re obtained. FINDINGS: Right Kidney: Length: 10.8 cm Appearance: I ncreased echogenicity. Collecting system: No hydronephrosis Stones: None C yst/Mass: Anechoic lesion with septation in the lower pole measures 1.7 x 1.5 x 1.3 cm consistent with a mildly complex cyst. Hypoechoic area in the inte rpolar region measures 1.4 x 1.4 x 1.2 cm, possibly a prominent pyramid. Sm all anechoic area in the lower pole measures 0.9 x 0.7 x 0.9 cm. Left Kidn ey: Length: 9.6 cm Appearance: Increased echogenicity. Collecting system: Mild hydronephrosis Stones: None Cyst/Mass: 0.7 x 0.6 x 0.7 cm cyst in the l ower pole. Bladder: Irregular thickened urinary bladder wall measuring u p to 0.6 cm in thickness.. Small volume post void residual. The prostate me asures 2.2 x 1.9 x 4.0 cm with a volume of 8.9 cc. IMPRESSION: 1. I ncreased echogenicity of the renal cortex bilaterally suggestive of medical renal disease. 2. 1.5 cm mildly complex lower pole right renal cyst. 3. Mild bladder trabeculation. Roland JULIAN M.D. DICTAT ED BY: Roland JULIAN M.D. ON 10/18/2017 AT 17:57 ELECTRONICALLY A PPROVED BY: Roland JULIAN M.D. ON 10/18/2017 AT 17:57 Dictated By: DANIEL JULIAN MD, MD 56 Transcribed By: ASIA on 10/18/171756 COPY TO: ZEFERINO RINCON MD
[2020-08-20 18:26] LABS: BASOPHILS % 0.6 % (0.0-1.0); EOSINOPHILS # (AUTO) 0.3 (0.0-0.4); EOSINOPHILS % 4.4 % (0.0-6.0); HEMATOCRIT 37.3 % (38.2-49.6); LYMPHOCYTES % 14.4 % (18.0-39.1); MEAN CORPUSCULAR HEMOGLOBIN 32.8 pg (28-32); MEAN CORPUSCULAR HGB CONC 32.2 g/dL (31-35); MEAN CORPUSCULAR VOLUME 101.9 fL (81-99); MONOCYTES # (AUTO) 0.9 (0.2-0.8); MONOCYTES % 12.4 % (4.4-11.3); NEUTROPHILS # (AUTO) 4.7 (2.1-6.9); NEUTROPHILS % 67.9 % (38.7-80.0); PLATELET COUNT 147 x10e3/uL (140-360); RED BLOOD COUNT 3.66 x10e6/uL (4.3-5.7); RED CELL DISTRIBUTION WIDTH 14.6 % (11.7-14.4)
--- NOTE | 2020-08-20 18:33 | NUR ---
[employer] AT BEDSIDE FOR XRAY.
[2020-08-20 18:41] LABS: INR 1.07; PARTIAL THROMBOPLASTIN TIME 28.5 seconds (23.8-35.5); PROTHROMBIN TIME 14.5 seconds (11.9-14.5)
[2020-08-20 18:50] LABS: ALBUMIN 3.4 g/dL (3.5-5.0); ANION GAP 16.9 mmol/L (8-16); CALCIUM 8.6 mg/dL (8.4-10.2); CREATININE, SERUM 2.27 mg/dL (0.72-1.25); POTASSIUM 3.9 mmol/L (3.5-5.1)
--- NOTE | 2020-08-20 19:14 | Diagnostic Imaging Report ---
FOOT LEFT COMPLETE - 3 views HISTORY: Pain COMPARISON: None available. FINDINGS: Bones: No acute displaced fracture. Osseous alignment is within normal limits. Joints: No malalignment. Soft tissues: The soft tissues appear unremarkable. IMPRESSION: No acute radiographic abnormality. Signed by: Dr. Jamie Amin MD on 08/20/2020 7:10 PM
--- NOTE | 2020-08-20 19:18 | Diagnostic Imaging Report ---
FOOT RIGHT COMPLETE - 3 views HISTORY: Pain COMPARISON: None available. FINDINGS: Bones: No acute displaced fracture. Osseous alignment is within normal limits. Joints: The joint spaces are well-maintained. Soft tissues: Punctate plantar soft tissue densities, could represent foreign bodies. IMPRESSION: No acute radiographic abnormality. Signed by: Dr. Jamie Amin MD on 08/20/2020 7:15 PM
--- NOTE | 2020-08-20 20:09 | Emergency Department Note ---
History of Present Illnes History of Present Illness Chief Complaint: Extremity Trauma/Pain History of Present Illness This is a 80 year old male in from home with complaints of right ankle redness and swelling, right foot swelling and extreme pain to his left lower extremity that started last Sunday when he hit his ankle on a tractor. Patient presents with redness and swelling to the medial aspect of his distal right lower extremity with some widespread bruising. Patient reports he has been unable to walk or bare weight to the leg. . 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 Any updates have been documented here. Past Medical History Recent Fever: No Clinical Suspicion of Infectio: Yes New/Unexplained Change in Ment: No Past Medical History: Hypertension, Diabetes, A-Fib, GERD, Hyperlipedemia Other Medical History: High cholesterol Past Surgical History: PCI, Pacer/AICD Other Surgery: Cardiac stents Cardioversion Social History Smoking Cessation: Never Smoker Counseling Performed: No Alcohol Use: None Any Illegal Drug Use: No Other Last Tetanus: OOD Any Pre-Existing Lines (PICC,: No Review of Systems Review of Systems Constitutional: Reports no symptoms EENTM: Reports no symptoms Cardiovascular: Reports no symptoms Respiratory: Reports no symptoms Gastrointestinal: Reports no symptoms Genitourinary: Reports no symptoms Musculoskeletal: Reports as per HPI Integumentary: Reports as per HPI Neurological: Reports no symptoms Psychological: Reports no symptoms Endocrine: Reports no symptoms Hematological/Lymphatic: Reports no symptoms Physical Exam Related Data Allergies: Coded Allergies: No Known Allergies (Unverified , 02/26/17) Triage Vital Signs Vital Signs Date Time Temp Pulse Resp B/P (MAP) Pulse Ox O2 Delivery O2 Flow Rate FiO2 08/20/20 17:23 98.2 64 16 118/83 100 Room Air Vital signs reviewed: Yes Physical Exam CONSTITUTIONAL Constitutional: Present well-developed, Present well-nourished HENT HENT: Present normocephalic, Present atraumatic, Present oropharynx clear/moist , Present nose normal HENT L/R: Present left ext ear normal, Present right ext ear normal EYES Eyes: Reports PERRL, Reports conjunctivae normal NECK Neck: Present ROM normal PULMONARY Pulmonary: Present effort normal, Present breath sounds normal CARDIOVASCULAR Cardiovascular: Present regular rhythm, Present heart sounds normal, Present capillary refill normal, Present normal rate GASTROINTESTINAL Abdominal: Present soft, Present nontender, Present bowel sounds normal GENITOURINARY Genitourinary: Present exam deferred SKIN Skin: Present warm, Present dry MUSCULOSKELETAL pt with erythema and warmth to right lower extremity and has wide spread bruising, pulses intact, area tender to palpation NEUROLOGICAL Neurological: Present alert, Present oriented x 3, Present no gross motor or sensory deficits PSYCHOLOGICAL Psychological: Present mood/affect normal, Present judgement normal Results Laboratory Result Diagram: 08/20/20 1757 08/20/20 1757 Laboratory Laboratory Tests Test 08/20/20 17:57 White Blood Count 6.88 x10e3/uL (4.8-10.8) Red Blood Count 3.66 x10e6/uL (4.3-5.7) Hemoglobin 12.0 g/dL (14.0-18.0) Hematocrit 37.3 % (38.2-49.6) Mean Corpuscular Volume 101.9 fL (81-99) Mean Corpuscular Hemoglobin 32.8 pg (28-32) Mean Corpuscular Hemoglobin Concent 32.2 g/dL (31-35) Red Cell Distribution Width 14.6 % (11.7-14.4) Platelet Count 147 x10e3/uL (140-360) Neutrophils (%) (Auto) 67.9 % (38.7-80.0) Lymphocytes (%) (Auto) 14.4 % (18.0-39.1) Monocytes (%) (Auto) 12.4 % (4.4-11.3) Eosinophils (%) (Auto) 4.4 % (0.0-6.0) Basophils (%) (Auto) 0.6 % (0.0-1.0) Neutrophils # (Auto) 4.7 (2.1-6.9) Lymphocytes # (Auto) 1.0 (1.0-3.2) Monocytes # (Auto) 0.9 (0.2-0.8) Eosinophils # (Auto) 0.3 (0.0-0.4) Basophils # (Auto) 0.0 (0.0-0.1) Absolute Immature Granulocyte (auto 0.02 x10e3/uL (0-0.1) Prothrombin Time 14.5 seconds (11.9-14.5) Prothromb Time International Ratio 1.07 Activated Partial Thromboplast Time 28.5 seconds (23.8-35.5) Sodium Level 145 mmol/L (136-145) Potassium Level 3.9 mmol/L (3.5-5.1) Chloride Level 105 mmol/L (98-107) Carbon Dioxide Level 27 mmol/L (22-29) Anion Gap 16.9 mmol/L (8-16) Blood Urea Nitrogen 26 mg/dL (7-26) Creatinine 2.27 mg/dL (0.72-1.25) Estimat Glomerular Filtration Rate 28 ML/MIN (60-) BUN/Creatinine Ratio 11 (6-25) Glucose Level 153 mg/dL (74-118) Calcium Level 8.6 mg/dL (8.4-10.2) Total Bilirubin 0.4 mg/dL (0.2-1.2) Aspartate Amino Transf (AST/SGOT) 32 IU/L (5-34) Alanine Aminotransferase (ALT/SGPT) 32 IU/L (0-55) Alkaline Phosphatase 92 IU/L (40-150) Total Protein 6.8 g/dL (6.5-8.1) Albumin 3.4 g/dL (3.5-5.0) Globulin 3.4 g/dL (2.3-3.5) Albumin/Globulin Ratio 1.0 (0.8-2.0) Lab results reviewed: Yes Imaging Imaging results reviewed: Yes Assessment & Plan Medical Decision Making MDM pt with pain , swelling and erythema to right leg cbc,cmp, blood culture, xray right foot, ankle ordered to eval for leukocytosis, electrolyte abnormality, renal function, fractures zosyn 2.225 grams iv ordered vancomycin 1 gram iv ordered I SPOKE WITH DR YEH COVERING FOR [facility], ADMIT INPATIENT Assessment & Plan Final Impression: (1) Cellulitis of right lower extremity (2) Contusion of right ankle Depart Disposition: ADMITTED Last Vital Signs Date Time Temp Pulse Resp B/P (MAP) Pulse Ox O2 Delivery O2 Flow Rate FiO2 08/20/20 18:59 98.8 64 18 126/62 98 Room Air Home Meds Reported Medications Metoclopramide Hcl (METOCLOPRAMIDE HCL) 10 Mg Tablet, 10 MG PO BID, TAB 02/26/17 Metoprolol Succinate (METOPROLOL SUCCINATE) 50 Mg Tab.er.24h, 50 MG PO HS, MG 02/26/17 Furosemide (LASIX) 40 Mg Tablet, 80 MG PO DAILY, #30 TAB 10/30/16 Amiodarone Hcl (AMIODARONE HCL) 200 Mg Tablet, 100 MG PO DAILY 10/29/16 Potassium Chloride* (K DUR*) 10 Meq Tabcr, 40 MEQ PO DAILY 09/19/16 [eliquis] 2.5 mg No Conflict Check, 2.5 MG PO BID 09/19/16 Metoprolol Succinate (METOPROLOL SUCCINATE) 50 Mg Tab.er.24h, 100 MG PO DAILY, MG 09/19/16 Triamcinolone Acet (TRIAMCINOLONE ACETONIDE) 15 Gm Cr 09/16/16 Clopidogrel Bisulfate (CLOPIDOGREL) 75 Mg Tablet, 75 MG PO DAILY, #30 TAB 09/16/16 Pravastatin Sodium (PRAVASTATIN SODIUM) 80 Mg Tablet, 80 MG PO HS THERAPEUTICALLY SUBSTITUTED WITH SIMVASTATIN 40MG 09/16/16 Dexlansoprazole (DEXILANT) 60 Mg Cap., 60 MG PO HS THERAPEUTIC INTERCHANGE WITH PROTONIX PER [facility] 09/16/16 Allopurinol (ALLOPURINOL) 300 Mg Tablet, 300 MG PO HS, #30 TAB 09/16/16 Medications in the ED Piperacillin Sod/ Tazobactam Sod 50 ml @ 50 mls/hr Q12H IV ; Start 08/20/20 at 20:00; Stop 08/27/20 at 19:59; Status UNV Vancomycin HCl 250 ml @ 200 mls/hr Q24H IV ; Start 08/20/20 at 20:00; Stop 08/27/20 at 19:59; Status UNV SAVANAH YAN MD Aug 20, 2020 20:09
[2020-08-20] MEDS: PIPERACILLIN/TAZO 2.25 GM 50 ML IV SCH (20:11)
[2020-08-20] MEDS ORDERED: PIPERACILLIN/TAZO 2.25 GM 50 ML IV ONE (20:13)
[2020-08-20] MEDS ORDERED: VANCOMYCIN 1GM/NS 250 ML 250 ML ONE (20:13)
--- NOTE | 2020-08-20 20:14 | Diagnostic Imaging Report ---
ANKLE 3 + VIEWS RIGHT - 3 views HISTORY: Pain COMPARISON: None available. FINDINGS: Bones: No acute displaced fracture. Osseous alignment is within normal limits. Joints: The joint spaces are well-maintained. Soft tissues: Mild medial malleolar soft tissue swelling. IMPRESSION: No acute radiographic abnormality. Signed by: Dr. Jamie Amin MD on 08/20/2020 8:11 PM
[2020-08-20] MEDS: VANCOMYCIN 1GM/NS 250 ML 250 ML IV SCH (20:39)
[2020-08-20] MEDS ORDERED: DEXTROSE 50% SYRINGE 50 ML IV PRN (21:15)
[2020-08-20] MEDS ORDERED: MORPHINE SULFATE INJ 4 MG/ML INJ 1ML IV PRN (21:15)
[2020-08-20] MEDS ORDERED: SODIUM CHLORIDE FLUSH 10 ML SYR INJ PRN (21:15)
[2020-08-20] MEDS ORDERED: ONDANSETRON HCL INJ 2MG/ML 2ML 2 MG/ML VIAL IV PRN (21:15)
--- OUTSIDE RECORDS SUMMARY | 2020-08-20 21:29 | XMS REPORT | Continuity of Care Document ---
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 Name Role Phone Charles YAN Attphys Unavailable Chad Hernandez Attphys RINA VASQUEZ Attphys Unavailable ZEFERINO NGUYEN Attphys Unavailable David Chatokeri Admphys Problems Condition Name Condition Details Condition Category Status Onset Date Resolution Date Last Treatment Date Treating Clinician Comments Source 4MONTH FOLLOW UP 4MON TH FOLLOW UP Active 03/22/2020 [facility] Diagnosis Active 2020-03-22 00:00:00 2020-05-11 0 9:40:00 [facility] ECHO ECHO Active 04/14/2019 [facility] Diagnosis Active 2019-04-14 00:00:00 2019-10-14 08:40:00 [facility] 1 MONTH F/U 1 MO NTH F/U Active 03/17/2019 [facility] Diagnosis Active 2019-03-17 00:00:00 2019-04-14 10:21:00 [facility] FU HOSP ITAL FU Active 03/03/2019 [facility] Diagnosis Active 2019-03-03 00:00:00 2019-03-17 11:54:00 [facility] PREADMIT / TAVR / MAC / TTE MA EADMIT / TAVR / MAC / TTE Active 02/25/2019 [facility] Diagnosis Active 2019-02-25 00 :00:00 2019-03-17 11:47:00 [facility] I35.0 I35. 0 Active 02/10/2019 [facility] Diagnosis Active 2019-02-10 00:00:00 2019-03-17 11:47:00 [facility] FOLLOW UP FOLL OW UP Active 02/04/2019 [facility] Diagnosis Active 2019-02-04 14:59:00 2019-02-24 10:12:00 [facility] I25.10 I25. 10 Active 01/09/2019 [facility] Diagnosis Active 2019-01-09 00:00:00 2019-01-21 07:34:00 [facility] 4 WK F/U 4 WK F/U Active 11/28/2018 [facility] Diagnosis Active 2018-11-28 00:00:00 2018-12-30 11:29:00 [facility] CCL / LHC -SCA CCL / LHC -SCA Active 11/13/2018 [facility] Diagnosis Active 2018-11-13 00:00:00 2018-11-27 1 1:38:00 Gary Zuletaann INCREASED SHORTNESS OF BREATH INCREASED SHORTNESS OF BREATH Active 11/06/2018 [facility] Diagnosis Active 2018-11-06 00:00:00 2018-11-12 09:00:00 Gary Marie 4 MONTH FOLLOW UP 4 MO NTH FOLLOW UP Active 09/30/2018 [facility] Diagnosis Active 2018-09-30 00:00:00 2019-02 11:47:00 [facility] F/U F/U Active 03/05/2018 [facility] Diagnosis Active 2018-03-05 00:00:00 2018-06-03 10:24:00 [facility] 2 MONTH F/U 2 MO NTH F/U Active 12/24/2017 [facility] Diagnosis Active 2017-12-24 00:00:00 2018-03-05 12:22:00 [facility] ICMP ICMP Active 08/27/2017 [facility] Diagnosis Active 2017-08-27 00:00:00 2017-09-04 08:28:00 [facility] 6 WEEK F/U 6 WE EK F/U Active 04/30/2017 [facility] Diagnosis Active 2017-04-30 00:00:00 2017-05-01 09:44:00 [facility] 2 WEEK F/U 2 WE EK F/U Active 03/06/2017 [facility] Diagnosis Active 2017-03-06 00:00:00 2017-03-20 10:42:00 [facility] CHF CHF Active 03/01/2017 [facility] Diagnosis Active 2017-03-01 00:00:00 2017-03-06 11:47:00 Gary Marie Chronic atrial fibrillation Ch ronic atrial fibrillation 05/19/2019 [facility] Problem 2019-05-19 11 :07:08 Gary Marie 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 (current) use of anticoagulants 05/19/2019 [facility] Problem 2019-05-19 11:07:08 Gary anderson Type 2 diabetes mellitus with diabetic chronic kidney disease Type 2 diabetes mellitus with diabetic chronic kidney disease 05/19/2019 [facility] Problem 2019-05-19 11:07:08 Gary Marie Hypertensive chronic kidney disease with stage 1 through stage 4 chronic kidney disease, or unspecified chronic kidney disease Hypertensive chronic kidney disease with stage 1 through stage 4 chronic kidney disease, or unspecified chronic kidney disease 12/21/2018 [facility] Problem 2018-12-21 11:15:50 Celio Marie Chronic kidney disease, stage 3 (moderate) Chronic kidney disease, stage 3 (moderate) 05/19/2019 [facility] Problem 2019-05-19 11:07:08 Gary Marie Nonrheumatic aortic (valve) stenosis Nonrheumatic aortic (valve) stenosis 12/21/2018 [facility] Problem 2018-12-21 11:15:50 Gary Marie Hyperlipidemia, unspecified Hy perlipidemia, unspecified 12/21/2018 [facility] Problem 2018-12-21 11 :15:50 Gary Marie 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 12/21/2018 [facility] Problem 2018-12-21 11:15:50 Celio Marie 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 (current) use of aspirin 12/21/2018 [facility] Problem 2018-12-21 11:15:50 Gary Marie intermediate manager (current) use of antithrombotics/antiplatele ts intermediate manager (current) use of antithrombotics/antiplatelets 12/21/2018 [facility] Problem 2018-12-21 11:15:50 Gary Marie 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 and stage 1 through stage 4 chronic kidney disease, or unspecified chronic kidney disease Hypertensive heart and chronic kidney disease with heart failure and stage 1 through stage 4 chronic kidney disease, or unspecified chronic kidney disease 05/19/2019 [facility] Problem 2019-05-19 11:07:08 Gary Marie Unspecified systolic (congestive) heart failure Unspecified systolic (congestive) heart failure 05/19/2019 [facility] Problem 2019-05-19 11:07:08 Celioanalia guillermo Frank Atrial fibrillation (disorder) Atrial fibrillation (disorder) Resolved Problem 05/13/2020 [facility] Problem Resolved 2020-05-13 23:06:33 Gary Marie Coronary arteriosclerosis (disorder) Coronary arteriosclerosis (disorder) Resolved Problem 05/13/2020 [facility] Problem Resolved 2020-05-13 23 :06:33 Gary Marie Chronic kidney disease (disorder) Chronic kidney disease (disorder) Resolved Problem 05/13/2020 [facility] Problem Resolved 2020-05-13 23:06:33 [facility] Diabetes mellitus (disorder) D iabetes mellitus (disorder) Resolved Problem 05/13/2020 [facility] Problem Resolved 2020-05-13 23:06:33 Gary Marie Hyperlipidemia (disorder) Hype rlipidemia (disorder) Resolved Problem 05/13/2020 [facility] Problem Resolved 2020-05-13 23:06:33 Kerwin Marie Hypertensive disorder, systemic arterial (disorder) Hypertensive disorder, systemic arterial (disorder) Resolved Problem 05/13/2020 [facility] Problem Resolved 2020-05-13 23:06:33 Gary Marie Systolic heart failure (disorder) Systolic heart failure (disorder) Resolved Problem 05/13/2020 [facility] Problem Resolved 2020-05-13 23:06:33 Gary Marie Gout (disorder) Gout (disorder) Resolved Problem 05/13/2020 [facility] Problem Resolved 2020-05-13 23:06:33 Gary Marie ENCNTR FOR GENERAL ADULT MEDICAL EXAM W/ ENCNTR FOR GENERAL ADULT MEDICAL EXAM W/ Active [facility] Diagnosis Act tom 2020-05-11 09:40:00 Gary anderson CARDIOMYOPATHY, UNSPECIFIED CA RDIOMYOPATHY, UNSPECIFIED Active [facility] Diagnosis Active 2017-09-04 08:28:00 Gary Marie 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 Active [facility] Diagnosis Active 2019-01-21 07:34:00 Gary Marie NONRHEUMATIC AORTIC (VALVE) STENOSIS NONRHEUMATIC AORTIC (VALVE) STENOSIS Active [facility] Diagnosis Active 2019-03-17 11:47:00 Gary Marie Ischemic cardiomyopathy Isch emic cardiomyopathy 11/04/2018 05/19/2019 [facility] Problem 2018-10 04:09:20 2019-05-19 11:07:08 2019-05-19 11:07:08 Gary Marie 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 06/08/2018 12/21/2018 [facility] Problem 2018-06-08 03:10:08 2018-12-21 11:15:50 2018-12-21 [...] BID, # 180 tab, 3 Refill(s), Pharmacy: [facility], 178.31, cm, 05/11/20 10:13:00 CDT, [...] Marie Losartan 2019-03-01 14:00:00 No Notes: (Kevyn lees: Mike) Gary Marie Aspirin 81 MG Enteric Coated Tablet 2019-02-28 18:13:00 Yes 81 mg = 1 tab, PO, Daily, 0 Refill(s) Gary villavicencioann vancomycin 2019-02-28 11:00:00 No Notes: TIME CRITICAL [...] (Same as: Tylenol with Codeine # 3) [facility] Miralax 2019-02-27 15:00:00 No Notes: Dissolve in 8 oz of water or juice. (Same as: Miralax) Gary Hare nn Lactulose 667 MG/ML Oral Solution 2019-02-27 14:36:00 No Notes: (Same as:Chronulac) Gary Marie Allopurinol 2019-02-27 14:00:00 No Notes: ( Same as: Zyloprim) [facility] Potassium Chloride 2019-02-27 14:00:00 No Notes: (Same as: K-Dur 20) "Do Not Crush" Give with food and full glass of water For patients unable to swallow tablet, dissolve in one half glass of water. Allow about 2 minutes for the tablets to disintegrate. Stir before giving to prepare slurry and administer. Please exclude Patient s with feeding tube less than 14 [place] (Dobhoff, J-tube etc) and pediatric and patients. [facility] Magnesium Oxide 2019-02-27 14:00:00 No Notes: (Same as: Mag-Ox 400) Magnesium oxide [id number] elemental magnesium Dose=____mg magnesium oxide (___mg elemental magnesium) [facility] anderson Losartan 2019-02-27 14:00:00 No Notes: (Kevyn e as: Cozaar) [facility] Imdur 2019-02-27 14:00:00 No Notes: (Same as:Imdur) "Do Not Crush" Take on empty stomach/ full glass of water. Do not crush [facility] Aspirin 2019-02-27 14:00:00 No Notes: Do not crush or chew. (Same As: Ecotrin) [facility] Furosemide 20 MG Oral Tablet 2019-02-27 14:00:00 No Notes: (Same as: Lasix) May cause GI upset. Give with food or milk. Gary Marie Dexilant 2019-02-27 14:00:00 No 60 mg, Route: PO, Drug form: DRC, Daily, Dosing Weight 93.636, kg, Start date: 02/27/19 9:00:00 CDT, Duration: 30 day, Stop date: 03/28/19 9:00:00 CDT [facility] orial Frank Protonix 2019-02-27 12:30:00 No Notes: Tablet should not be chewed or crushed. (Same as: Protonix) [facility] heparin 2019-02-27 11:28:00 No Notes: porci ne heparin [facility] vancomycin 2019-02-27 11:00:00 No Notes: TIME CRITICAL MEDICATION (Same As: Vancocin) For adult patients only: Round to nearest 250 mg per Medical Staff approval [facility] sennosides, CARE HOME 2019-02-27 03:13:00 No Notes: (Same as: Senokot) [facility] Docusate Sodium 100 MG Oral Capsule [Colace] 2019-02-27 03:13:00 No Notes: (Same as: Colace) (Do Not Crush) [facility] Brilinta 2019-02-27 02:00:00 No Notes: (Kevyn e as: Brilinta) [facility] carvedilol 2019-02-27 02:00:00 No Notes: Give with food. (Same As: Coreg) [facility] Crestor 2019-02-27 02:00:00 No Notes: (Same As: Crestor) [facility] Hydralazine Hydrochloride 25 MG Oral Tablet 2019-02-27 02:00:00 No Notes: (Same as: Apresoline) May interfere w/enteral feedings Take With Food. Ivette emoeagle Marie ferrous sulfate 2019-02-27 02:00:00 No Notes: Give with food. "Do Not Crush" [facility] Potassium Chloride 2019-02-26 23:00:00 No Notes: (Same as: KCL) Infuse no faster than 10 mEq/hr if given peripherally. [facility] potassium chloride 20 mEq oral tablet, extended [...] s with feeding tube less than 14 [place] (Dobhoff, J-tube etc) and pediatric and patients. [facility] Amiodarone 2019-02-26 22:00:00 No Notes: Same as: Cordaron, Pacerone [facility] Fentanyl 2019-02-26 21:52:00 No Notes: (Same as: Sublimaze) Preservative free. [facility] Acetaminophen 325 MG / Hydrocodone Bitartrate 5 MG Oral Tabl et [[place] 5/325] 2019-02-26 21:37:00 No Notes: (Same as: [place] 325/5) Do not exceed 4gm/day of acetaminophen. [facility] nn Calcium Gluconate 2019-02-26 21:34:00 No Notes: WASTE: F/P - Sink; E - [employer] [facility] Magnesium Sulfate 2019-02-26 21:34:00 No Notes: WASTE: F/P - Sink; E - [employer] [facility] Nicardipine 2019-02-26 20:58:00 No Notes: Same as: Cardene Concentration: (0.2 mg /1 ml ) [facility] Nitroglycerin 2019-02-26 20:27:00 No Notes: (Same as:Tridil) Final conc = 0.4 mg/ml. Premix bottle. Memshahla Marie Ondansetron 2019-02-26 16:22:00 No Notes: (Same as: Zofran) MEDICATION WASTE Product Size: 4 mg Product Wasted: ___ mg [facility] Flumazenil 2019-02-26 16:22:00 No Notes: (S jt as: Romazicon) [facility] Naloxone 2019-02-26 16:22:00 No Notes: Same as Narcan [facility] Fentanyl 2019-02-26 16:22:00 No Notes: (Same as: Sublimaze) Preservative free. [facility] propofol (ANES) 2019-02-26 16:05:00 No Route: IV, Drug form: INJ, ONCE, Stop date: 02/26/19 11:05:00 CDT Ivette Marie protamine (ANES) 2019-02-26 16:00:00 No Route: IV, Drug form: INJ, ONCE, Stop date: 02/26/19 11:00:00 CDT shahida Marie heparin (ANES) 2019-02-26 14:34:00 No Route: IV, Drug form: INJ, ONCE, Stop date: 02/26/19 9:34:00 CDT [facility] fentaNYL (ANES) 2019-02-26 14:18:00 No Route: IV, Drug form: INJ, ONCE, Stop date: 02/26/19 9:18:00 CDT [facility] propofol (ANES) 10 mg 2019-02-26 13:03:00 No Route: IV, Drug form: INJ, Start date: 02/26/19 8:03:00 CDT, Stop date: 02/26/19 9:03:00 CDT Gary Marie Sodium Chloride 0.9% IV (ANES) 1000 mL 2019-02-26 12:52:00 No Route: IV, Total Volume: 1,000, Start date: 02/26/19 7:52:00 CDT, Stop date: 02/26/19 8:52:00 CDT [facility] normal saline 0.9% IV 1,000 [...] full glass of water. Do not crush [facility] Hydralazine Hydrochloride 25 MG Oral Tablet 2018-11-28 15:00:00 No Notes: (Same as: Apresoline) May interfere w/enteral feedings Take With Food. [facility] Marie Furosemide 20 MG Oral Tablet 2018-11-28 15:00:00 No Notes: (Same as: Lasix) May cause GI upset. Give with food or milk. Gary Marie Dexilant 2018-11-28 15:00:00 No Notes: Same as: Kapidex "Do Not Crush" Non-Formulary Gary Marie carvedilol 2018-11-28 15:00:00 No Notes: Give with food. (Same As: Coreg) [facility] Allopurinol 2018-11-28 15:00:00 No Notes: ( Same as: Zyloprim) [facility] Amiodarone 2018-11-28 15:00:00 No Notes: Same as: Gonzalo Fieldse [facility] Aspirin 81 MG Enteric Coated Tablet 2018-11-28 15:00:00 No Notes: Do not crush or chew. (Same As: Ecotrin) [facility] Brilinta 2018-11-28 15:00:00 No Notes: ([facility] e as: Brilinta) [facility] Potassium Chloride 2018-11-28 15:00:00 No Notes: (Same as: K-Dur 20) "Do Not Crush" Give with food and full glass of water For patients unable to swallow tablet, dissolve in one half glass of water. Allow about 2 minutes for the tablets to disintegrate. Stir before giving to prepare slurry and administer. Please exclude Patient s with feeding tube less than 14 [place] (Dobhoff, J-tube etc) and pediatric and patients. [facility] Losartan 2018-11-28 15:00:00 No Notes: ([facility] e as: Cozaar) Gary Marie ticagrelor 90 mg oral tablet 2018-11-28 14:18:00 Yes 90 mg = 1 tab, PO, Q12H, # 180 tab, 3 Refill(s), Pharmacy: [facility] ticagrelor 90 mg oral tablet 2018-11-28 14:06:00 [...] PO, Q12H, # 180 tab, 0 Refill(s) Loly Marie ferrous sulfate 2018-11-28 03:00:00 No Notes: Give with food. 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, Stop date: 11/27/18 20:56:00 GUM SCORING MACHINE OPERATOR Gary Marie Atropine 2018-11-28 01:30:00 No 1 mg, Route: IVP, ONCE, Dosing Weight 95, kg, Start date: 11/27/18 19:30:00 GUM SCORING MACHINE OPERATOR, Stop date: 11/27/18 19:30:00 GUM SCORING MACHINE OPERATOR Gary Marie Hydralazine 2018-11-27 23:53:00 No Notes: (Same as: Apresoline) Push over 5 minutes Gary Marie Sodium Chloride 0.9% IV 250 mL 2018-11-27 23:06:00 No 250 mL, Rate: 50 ml/hr, Infuse over: 5 hr, Route: IV, Dosing Weight 95 kg, Total Volume: 250, Start date: 11/27/18 17:06:00 GUM SCORING MACHINE OPERATOR, Duration: 24 hr, Stop date: 11/28/18 17:05:00 GUM SCORING MACHINE OPERATOR, 2.2, m2 Gary Marie apixaban 2.5 MG [...] Weight 95 kg, Start date: 11/27/18 12:00:00 GUM SCORING MACHINE OPERATOR, Duration: 1 doses or times Gary Marie Sodium Chloride 0.9% IV 750 mL 2018-11-27 17:53:00 No 750 mL, Rate: 75 ml/hr, Infuse over: 10 hr, Route: IV, Dosing Weight 95 kg, Total Volume: 750, Start date: 11/27/18 11:53:00 GUM SCORING MACHINE OPERATOR, Duration: 24 hr, Stop date: 11/28/18 11:52:00 GUM SCORING MACHINE OPERATOR, 2.2, m2 Gary Marie sennosides, [facility]ARE HOME 8.6 MG Oral Tablet [Senna-Time] 2018-11-12 15:44 [...] Bedtime, # 90 tab, 3 Refill(s), Pharmacy: [facility] Gary Marie Ticagrelor 60 MG Oral Tablet [Brilinta] 2017-12-24 18:37:00 Yes 60 mg = 1 tab, PO, BID, # 60 tab, 3 Refill(s), Pharmacy: [facility] [id number] Gary Zuletaann AMIODarone 100 mg oral tablet 2017-12-24 17:29:00 Yes 200 mg = 2 tab, PO, Daily, # 60 tab, 0 Refill(s), Pharmacy: [facility] [id number] Gary Frank AMIODarone 100 mg oral tablet 2017-12-24 17:28:00 [...] Refill(s), Pharmacy: [facility] Betamethasone 0.0005 MG/MG Augmented Topical Ointment 2017-05-01 15:05:00 Yes 1 appl, TOP, 0 Refill(s) [facility] carvedilol 3.125 mg oral tablet 2017-03-20 20:40:00 Yes 3.125 mg = 1 tab, PO, Q12H, # 60 tab, 3 Refill(s), Pharmacy: [facility] [id number] [facility] carvedilol 12.5 MG Oral Tablet [Coreg] 2017-03-20 20:14:38 Yes 12.5 mg = 1 tab, PO, BID, # 60 tab, 3 Refill(s), Pharmacy: [facility] [id number] [facility] Rosuvastatin calcium 5 MG Oral Tablet [Crestor] 2017-03-20 20:14 :00 Yes 5 mg = 1 tab, PO, Bedtime, # 30 tab, 3 Refill(s), Pharmacy: [facility] [id number] [facility] Hydralazine Hydrochloride 25 MG Oral Tablet 2017-03-06 19:19:00 Yes 25 mg = 1 tab, PO, BID, # 60 tab, 3 Refill(s) [facility] 24 HR Isosorbide Mononitrate 30 MG Extended Release Tablet [ Imdur] 2017-03-06 19:19:00 Yes 30 mg = 1 tab, PO, QAM, # 30 tab, 3 Refill(s) [facility] carvedilol 12.5 MG Oral Tablet [Coreg] 2017-03-06 19:19:00 Yes 12.5 mg = 1 tab, PO, BID, # 60 tab, 3 Refill(s) [facility] Furosemide 20 MG Oral Tablet 2017-03-06 19:17:00 Yes 3 tabs, PO, Daily, # 90 tab, 3 [facility] 2017-[facility]-06 17:48:00 Yes 40 mEq, [...] Bedtime, # 30 tab, 0 Refill(s) Celio jose mcharles Marie AMIODarone 100 mg oral tablet 2017-03-06 [...] Daily, # 30 tab, 0 Refill(s) Josh al Frank allopurinol 300 mg oral tablet 2017-03-06 17:48:00 Yes 300 mg = 1 tab, PO, Daily, # 30 tab, 0 Refill(s) Me barbara Marie apixaban 2.5 MG Oral Tablet [Eliquis] 2017-03-06 17:48:00 Y es 2.5 mg = 1 tab, PO, BID, 0 Refill(s) [facility] Vital Signs Vital Name Observation Time Observation Value Comments Source Systolic (mm Hg) 2020-05-11 15:13:00 [facility] [place] Diastolic (mm Hg) 2020-05-11 15:13:00 [facility] [place] Heart Rate 2020-05-11 15:13:00 [facility] Respitory Rate 2020-05-11 15:13:00 [facility] [place] Temperature Oral (F) 2020-05-11 15:13:00 97.0 F [facility] Height 2020-05-11 15:13:00 178.31 cm [facility] Weight 2020-05-11 15:13:00 [facility] BMI Calculated 2020-05-11 15:13:00 [facility] [place] Systolic (mm Hg) 2019-06-17 17:34:00 [facility]io [facility] [place] Diastolic (mm Hg) 2019-06-17 17:34:00 [facility] Heart Rate 2019-06-17 17:34:00 [facility] Respitory Rate 2019-06-17 17:34:00 [facility] Temperature Oral (F) 2019-06-17 17:34:00 97.7 F [facility] Height 2019-06-17 17:34:00 178.05 cm [facility] Weight 2019-06-17 17:34:00 [facility] BMI Calculated 2019-06-17 17:34:00 Mem[facility] BMI Calculated 2019-04-14 15:41:00 [facility] Weight 2019-04-14 15:41:00 [facility] Height 2019-04-14 15:41:00 177.8 cm [facility] Temperature Oral (F) 2019-04-14 15:41:00 97.8 F [facility] Respitory Rate 2019-04-14 15:41:00 [facility] [place] Heart Rate 2019-04-14 15:41:00 [facility] Systolic (mm Hg) 2019-04-14 15:41:00 Celio [facility] [place] Diastolic (mm Hg) 2019-04-14 15:41:00 [facility] [place] BMI Calculated 2019-03-17 16:43:00 [facility] [place] Weight 2019-03-17 16:43:00 [facility] Temperature Oral (F) 2019-03-17 16:43:00 97.6 F [facility] Height 2019-03-17 16:43:00 177.8 cm [facility] Systolic (mm Hg) 2019-03-17 16:43:00 Celio rial Frank Diastolic (mm Hg) 2019-03-17 16:43:00 [facility] [place] Respitory Rate 2019-03-17 16:43:00 [facility] Heart Rate 2019-03-17 16:43:00 [facility] Respitory Rate 2019-02-28 19:19:00 [facility] [place] Systolic (mm Hg) 2019-02-28 19:19:00 Celio [facility] Diastolic (mm Hg) 2019-02-28 19:19:00 [facility] Systolic (mm Hg) 2019-02-28 18:00:00 [facility] [place] Diastolic (mm Hg) 2019-02-28 18:00:00 [facility] Respitory Rate 2019-02-28 18:00:00 [facility] Respitory Rate 2019-02-28 17:00:00 [facility] Systolic (mm Hg) 2019-02-28 17:00:00 Celio rial Frank Diastolic (mm Hg) 2019-02-28 17:00:00 [facility] [place] Temperature Oral (F) 2019-02-28 14:47:00 96.3 F [facility] Temperature Oral (F) 2019-02-28 09:00:00 96.6 F [facility] Temperature Oral (F) 2019-02-28 05:00:00 96.8 F [facility] BMI Calculated 2019-02-26 11:02:00 [facility] [place] Weight 2019-02-26 11:02:00 [facility] Height 2019-02-26 11:02:00 180.34 cm [facility] Systolic (mm Hg) 2019-02-19 16:02:00 Celio rial Frank Diastolic (mm Hg) 2019-02-19 16:02:00 [facility] [place] Heart Rate 2019-02-19 16:02:00 [facility] Systolic (mm Hg) 2019-02-19 14:52:00 Celio rial Frank Diastolic (mm Hg) 2019-02-19 14:52:00 [facility] Heart Rate 2019-02-19 14:52:00 [facility] BMI Calculated 2019-02-19 13:57:00 [facility] [place] Weight 2019-02-19 13:57:00 [facility] Height 2019-02-19 13:57:00 180.34 cm [facility] Height 2019-02-04 20:29:00 177.8 cm [facility] BMI Calculated 2019-02-04 20:29:00 [facility] [place] Weight 2019-02-04 20:29:00 [facility] Temperature Oral (F) 2019-02-04 20:29:00 98.3 F [facility] Respitory Rate 2019-02-04 20:29:00 [facility] Heart Rate 2019-02-04 20:29:00 [facility] Systolic (mm Hg) 2019-02-04 20:29:00 Celio [facility] [place] Diastolic (mm Hg) 2019-02-04 20:29:00 [facility] BMI Calculated 2019-01-21 12:38:00 [facility] [place] Weight 2019-01-21 12:38:00 [facility] Height 2019-01-21 12:38:00 180.34 cm [facility] Systolic (mm Hg) 2018-12-30 16:41:00 [facility]io [facility] [place] Diastolic (mm Hg) 2018-12-30 16:41:00 [facility] [place] Height 2018-12-30 16:41:00 177.8 cm [facility] BMI Calculated 2018-12-30 16:41:00 [facility] [place] Temperature Oral (F) 2018-12-30 16:41:00 97.6 F [facility] Respitory Rate 2018-12-30 16:41:00 [facility] [place] Heart Rate 2018-12-30 16:41:00 [facility] Weight 2018-12-30 16:41:00 [facility] Systolic (mm Hg) 2018-11-28 13:15:00 Celio [facility] Diastolic (mm Hg) 2018-11-28 13:15:00 [facility] Temperature Oral (F) 2018-11-28 13:15:00 97.8 F [facility] Systolic (mm Hg) 2018-11-28 10:00:00 [facility] Diastolic (mm Hg) 2018-11-28 10:00:00 [facility] Systolic (mm Hg) 2018-11-28 08:00:00 [facility] Diastolic (mm Hg) 2018-11-28 08:00:00 [facility] Temperature Oral (F) 2018-11-27 18:30:00 97.8 F [facility] Height 2018-11-27 17:50:00 180.34 cm [facility] Weight 2018-11-27 17:50:00 [facility] BMI Calculated 2018-11-27 17:50:00 [facility] Weight 2018-11-12 17:29:00 [facility] BMI Calculated 2018-11-12 17:29:00 [facility] Height 2018-11-12 17:29:00 177.8 cm [facility] Heart Rate 2018-11-12 17:29:00 [facility] Respitory Rate 2018-11-12 17:29:00 [facility] Temperature Oral (F) 2018-11-12 17:29:00 97.7 F [facility] Systolic (mm Hg) 2018-11-12 17:29:00 [facility] Diastolic (mm Hg) 2018-11-12 17:29:00 [facility] Height 2018-09-30 16:37:00 175.26 cm [facility] BMI Calculated 2018-09-30 16:37:00 [facility] Weight 2018-09-30 16:37:00 [facility] Systolic (mm Hg) 2018-09-30 16:37:00 [facility] Diastolic (mm Hg) 2018-09-30 16:37:00 [facility] Temperature Oral (F) 2018-09-30 16:37:00 98.2 F [facility] Respitory Rate 2018-09-30 16:37:00 [facility] Heart Rate 2018-09-30 16:37:00 [facility] Height 2018-06-03 16:46:00 177.29 cm [facility] Weight 2018-06-03 16:46:00 [facility] BMI Calculated 2018-06-03 16:46:00 [facility] Heart Rate 2018-06-03 16:46:00 [facility] Temperature Oral (F) 2018-06-03 16:46:00 97.6 F [facility] Respitory Rate 2018-06-03 16:46:00 [facility] Systolic (mm Hg) 2018-06-03 16:46:00 [facility] Diastolic (mm Hg) 2018-06-03 16:46:00 [facility] Height 2018-03-05 18:51:00 182.88 cm [facility] Weight 2018-03-05 18:51:00 [facility] BMI Calculated 2018-03-05 18:51:00 [facility] Systolic (mm Hg) 2018-03-05 18:51:00 [facility] Diastolic (mm Hg) 2018-03-05 18:51:00 [facility] Temperature Oral (F) 2018-03-05 18:51:00 97.6 F [facility] Respitory Rate 2018-03-05 18:51:00 [facility] Heart Rate 2018-03-05 18:51:00 [facility] BMI Calculated 2017-12-24 16:20:00 [facility] Weight 2017-12-24 16:20:00 [facility] Height 2017-12-24 16:20:00 180.34 cm [facility] Systolic (mm Hg) 2017-12-24 16:20:00 [facility] Diastolic (mm Hg) 2017-12-24 16:20:00 [facility] Temperature Oral (F) 2017-12-24 16:20:00 97.2 F [facility] Respitory Rate 2017-12-24 16:20:00 [facility] Heart Rate 2017-12-24 16:20:00 [facility] Height 2017-09-04 14:55:00 180.34 cm [facility] BMI Calculated 2017-09-04 14:55:00 [facility] Weight 2017-09-04 14:55:00 [facility] BMI Calculated 2017-09-04 14:21:00 [facility] Weight 2017-09-04 14:21:00 [facility] Height 2017-09-04 14:21:00 180.34 cm [facility] Weight 2017-05-01 15:02:00 [facility] BMI Calculated 2017-05-01 15:02:00 [facility] Height 2017-05-01 15:02:00 182.88 cm [facility] Respitory Rate 2017-05-01 15:02:00 [facility] Temperature Oral (F) 2017-05-01 15:02:00 97.4 F [facility] Heart Rate 2017-05-01 15:02:00 [facility] Systolic (mm Hg) 2017-05-01 15:02:00 [facility] Diastolic (mm Hg) 2017-05-01 15:02:00 [facility] BMI Calculated 2017-03-20 16:51:00 [facility] Weight 2017-03-20 16:51:00 [facility] Height 2017-03-20 16:51:00 182.88 cm [facility] Systolic (mm Hg) 2017-03-20 16:51:00 [facility] Diastolic (mm Hg) 2017-03-20 16:51:00 [facility] Respitory Rate 2017-03-20 16:51:00 [facility] Temperature Oral (F) 2017-03-20 16:51:00 97.8 F [facility] Heart Rate 2017-03-20 16:51:00 [facility] Weight 2017-03-06 17:46:00 [facility] BMI Calculated 2017-03-06 17:46:00 [facility] Systolic (mm Hg) 2017-03-06 17:46:00 [facility] Diastolic (mm Hg) 2017-03-06 17:46:00 [facility] Temperature Oral (F) 2017-03-06 17:46:00 98 F [facility] Heart Rate 2017-03-06 17:46:00 [facility] Respitory Rate 2017-03-06 17:46:00 [facility] Height 2017-03-06 17:46:00 182.88 cm [facility] Procedures Procedure Date / Time Performed Performing Clinician [facility] PCI - Percutaneous coronary intervention 2016-01-23 00:00:00 [facility] Encounters Start Date/Time End Date/Time Encounter Type Admission Type [facility] Care Department Encounter ID Source 2019-02-26 05:37:00 Inpatient [facility] CAR [id number] [facility] 2020-05-11 09:38:00 2020-05-11 23:59:00 Outpatient Chad Hernandez [facility] [id number] 2020-05-11 09:38:00 2020-05-11 09:38:00 Outpatient [facility] CAR [id number] [facility] 2019-06-17 08:17:00 2019-06-17 23:59:00 Outpatient Chad Hernandez [facility] [id number] 2019-06-17 08:17:00 2019-06-17 08:17:00 Outpatient MH CAR [id number] [facility] 2019-04-14 10:17:00 2019-04-14 23:59:00 Outpatient Chad Hernandez [facility] [id number] 2019-04-14 10:17:00 2019-04-14 10:17:00 Outpatient MH CAR [id number] [facility] 2019-03-17 11:26:00 2019-03-17 23:59:00 Outpatient Chad Hernandez [facility] [id number] 2019-03-17 11:26:00 2019-03-17 11:26:00 Outpatient MH CAR [id number] [facility] 2019-02-04 14:57:00 2019-03-05 23:59:00 Outpatient Chad Hernandez [facility] [id number] 2019-02-26 05:37:00 2019-02-28 16:00:00 Outpatient Chad Hernandez [facility] [id number] 2019-02-19 08:55:00 2019-02-19 23:59:00 Outpatient Chad Hernandez [facility] [id number] 2019-02-19 08:55:00 2019-02-19 08:55:00 Outpatient MH CAR [id number] [facility] 2019-02-04 14:57:00 2019-02-04 14:57:00 Outpatient MH CAR [id number] [facility] 2019-01-21 07:26:00 2019-01-21 23:59:00 Outpatient Chad Hernandez [facility] [id number] 2019-01-21 07:26:00 2019-01-21 07:26:00 Outpatient MH CAR [id number] [facility] 2019-01-06 09:30:00 2019-01-06 23:59:00 [facility] [id number] 2019-01-06 09:30:00 2019-01-06 09:30:00 Outpatient [facility] CAR [id number] [facility] 2018-12-30 11:29:00 2018-12-30 23:59:00 Outpatient [facility] [id number] 2018-12-30 11:29:00 2018-12-30 11:29:00 Outpatient [facility] CAR [id number] [facility] 2018-11-27 11:38:00 2018-11-28 09:40:00 [facility] [id number] 2018-11-27 11:38:00 2018-11-27 11:38:00 Outpatient [facility] CAR [id number] [facility] 2018-11-12 08:55:00 2018-11-12 23:59:00 [facility] [id number] 2018-09-30 10:16:00 2018-10-29 23:59:00 [facility] [id number] 2018-09-30 10:16:00 2018-10-29 23:59:00 [facility] [id number] 2018-06-03 10:23:00 2018-06-03 23:59:00 Outpatient Chad Hernandez [facility] [id number] 2018-03-05 12:12:00 2018-03-05 23:59:00 [facility] [id number] 2017-12-24 10:09:00 2017-12-24 23:59:00 Outpatient David, Chad [facility] [id number] 2017-09-04 12:21:00 2017-09-05 23:59:59 Outpatient MH91 [id number] 2017-09-04 08:20:00 2017-09-04 23:59:00 Outpatient Chad Hernandez [facility] [id number] 2017-08-27 10:26:00 2017-08-27 23:59:00 Outpatient Chad Hernandez [facility] [id number] 2017-05-30 11:14:00 2017-05-31 23:59:59 Outpatient FABRIZIO [id number] 2017-05-01 09:43:00 2017-05-01 23:59:00 Outpatient Chad Hernandez [facility] [id number] 2017-03-20 10:42:00 2017-03-20 23:59:00 Outpatient Chad Hernandez [facility] [id number] 2017-03-06 11:35:00 2017-03-06 23:59:00 Outpatient Chad Hernandez [facility] [id number] Results Test Description Test Time Test Comments Results Result Comments Source ANKLE 3 + VIEWS RIGHT 2020-08-20 20:10:00 [facility] 1940 Sex: M [place] [address] Patient Name: CELI SARMIENTO MR #: [id number] : 1940 Age/Sex: 80/M Req #: [id number] [facility] Physician: Ordered by: SAVANAH YAN MD Report #: [id number] Location: Room/Bed: Procedure: [id number] DX/ANKLE 3 + VIEWS RIGHT Exam Date: 08/20/20 Exam Time: 1999 REPORT STATUS: Signed ANKLE 3 + VIEWS RIGHT - 3 views HISTORY: Pain COMPARISON: None available. FINDINGS: Bones: No acute displaced fracture. Osseous alignment is within normal limits. Joints: The joint spaces are well-maintained. Soft tissues: Mild medial malleolar soft tissue swelling. IMPRESSION: No acute radiographic abnormality. Signed by: Dr. Jamie Duff MD on 08/20/2020 8:11 PM Dictated By: JAMIE DUFF MD 10 Transcribed By: MASTER on 08/20/202010 COPY TO: SAVANAH YAN MD FOOT RIGHT COMPLETE 2020-08-20 19:13:00 [facility] 1940 Sex: M [facility] [address] [address] Patient Name: CELI SARMIENTO MR #: [id number] : 1940 Age/Sex: 80/M Req #: [id number] Adm Physician: Ordered by: Geovany Lopez MD Report #: [id number] Location: Room/Bed: Procedure: [id number] DX/FOOT RIGHT COMPLETE Exam Date: 08/20/20 Exam Time: 1850 REPORT STATUS: Signed FOOT RIGHT COMPLETE - 3 views HISTORY: Pain COMPARISON: None available. FINDINGS: Bones: No acute displaced fracture. Osseous alignment is within normal limits. Joints: The joint spaces are well-maintained. Soft tissues: Punctate plantar soft tissue densities, could represent foreign bodies. IMPRESSION: No acute radiographic abnormality. Signed by: Dr. Jamie Duff MD on 08/20/2020 7:15 PM Dictated By: JAMIE DUFF MD 14 Transcribed By: MASTER on 08/20/201914 COPY TO: GEOVANY LOPEZ MD FOOT LEFT COMPLETE 2020-08-20 19:09:00 [facility] : 1940 Sex: [place] [address] Patient Name: CELI SARMIENTO MR #: [id number] : 1940 Age/Sex: 80/M Req #: [id number] [facility] Physician: Ordered by: SAVANAH YAN MD Report #: [id number] Location: Room/Bed: Procedure: [id number] DX/FOOT LEFT COMPLETE Exam Date: 08/20/20 Exam Time: 1829 REPORT STATUS: Signed FOOT LEFT COMPLETE - 3 views HISTORY: Pain COMPARISON: None available. FINDINGS: Bones: No acute displaced fracture. Osseous alignment is within normal limits. Joints: No malalignment. Soft tissues: The soft tissues appear unremarkable. IMPRESSION: No acute radiographic abnormality. Signed by: Dr. Jamie Duff MD on 08/20/2020 7:10 PM Dictated By: JAMIE DUFF MD 09 Transcribed By: MASTER on 08/20/201909 COPY TO: SAVANAH YAN MD CARDIAC ENZYMES 2020-05-11 16:15:54 783 [facility] CHEM PANEL 2020-05-11 16:15:54 140 [facility] CHEM PANEL 2020-05-11 16:15:54 29 [facility] CHEM PANEL 2020-05-11 16:15:54 2.26 [facility] CHEM PANEL 2020-05-11 16:15:54 32 [facility] CHEM PANEL 2020-05-11 16:15:54 9.0 [facility] CHEM PANEL 2020-05-11 16:15:54 7.2 [facility] CHEM PANEL 2020-05-11 16:15:54 3.3 [facility] CHEM PANEL 2020-05-11 16:15:54 39 [facility] CHEM PANEL 2020-05-11 16:15:54 36 [facility] CHEM PANEL 2020-05-11 16:15:54 91 [facility] CHEM PANEL 2020-05-11 16:15:54 0.5 [facility] CHEM PANEL 2020-05-11 16:15:54 Test Item B/C Ratio (test code = B/C Ratio) 13 1 6-25 [facility] JKFOA8833-17-16 16:15:543.9[facility]annCHE[facility] PANEL 2020-05-11 16:15:54* Test Item Value Reference Range Interpretation Comments A/G Ratio (test code = A/G Ratio) 0.8 1 0.7-1.6 [facility] KOLTA3917-24-36 16:15:5426[facility]annCHEM PANEL 2020-05-11 16:15:77854Raisvaaj HermannCHEM LYKCD7783-62-88 16:15:544.0[facility]annCHEM UKZVZ6307-46-28 16:15:14721Lnvuqzrf [facility]annCHE[facility] CHPKF7088-75-03 16:15:549.0[facility] PsqympoVWPHTVXUIG5714-56-47 16:15:547.7[facility] WDZIGDHRQV1703-73-13 16:15:543.97[facility] ZuxbkhaOVWYUEGJLL5921-72-19 16:15:54 13.5[facility] TowxswdMUHOLMGCIE5343-11-34 16:15:5440.2[facility] HermannHEMATOLOGY 2020-05-11 16:15:15330.4[facility] LtfesasEYAQYOKRCU3805-11-83 16:15:54* Test Item Value Reference Range Interpretation Comments MCH (test code = MCH) 34.0 pg 27.0-31.0 [facility] AqvctxiZMGUPVJFTQ7187-79-35 16:15:5433.6[facility] HermannHEMATOLOGY 2020-05-11 16:15:5415.0[facility] GbbjmzsCXBQJSWDPI4758-63-93 16:15:74675Lgsdjjoq XcxkntuTMRHDEFQYP1182-00-27 16:15:548.4[facility] HiizbryGIGSKPUHEH1802-07-84 16:15:5471.9[facility] UucivlqJKIAZFBSKX5288-46-80 16:15:5413.5[facility] CIYOTAUXSI2062-44-66 16:15:548.1[facility] UutpnlxFJQDXYMBJJ2721-89-76 16:15:545.7 [facility] SupngpoFUADBDDSXQ5265-80-84 16:15:540.8[facility]annHEMATOLOGY 2020-05-11 16:15:545.5[facility] BloonynYISNXDZUAE1236-06-88 16:15:541.0[facility] SaximzzERFRVTYUZE1993-82-10 16:15:540.6[facility] TjmtbwaIEOIAMEJPT4445-57-92 16:15:540.4[facility] KpskhutBTUTJCSIDK3222-83-42 16:15:540.1[facility] ZNFGFRWWYI0687-29-07 16:15:541+ *ABN*(05/11/20 11:15 AM)[facility] HermannLIPIDS 2020-05-11 16:15:57331Mbbojxsf IwwjoroFTOWPI9598-52-20 16:15:75858Bvprofvn GnkejgrJGPTYA4406-25-73 16:15:5452[facility] PtdcbsyYUVVDQ1945-78-84 16:15:54* Test Item Value Reference Range Interpretation Comments CHD Risk (test code = CHD Risk) 3.04 1 4.00-7.30 [facility] ZiazmidWUDADO9186-67-11 16:15:5480[facility] QclcttaUJULAP0142-21-08 16:15:54* Test Item Value Reference Range Interpretation Comments VLDL (test code = VLDL) 26 1 [facility]annSPECIAL CZSNMLMQM7390-43-77 16:15:547.2[facility] HermannCARDIAC WPYLFZT2531-02-56 18:53:99183Thlkikga HermannCHEM QRIYM0603-39-61 18:53:21* Test Item Value Reference Range Interpretation Comments A/G Ratio (test code = A/G Ratio) 0.8 1 0.7-1.6 [facility]CHE[facility] CMMQU5357-57-55 18:53:21* Test Item Value Reference Range Interpretation Comments B/C Ratio (test code = B/C Ratio) 11 1 6-25 [facility]annCHE[facility] WBVDA1647-14-61 18:53:213.9[facility]annCHEM PANEL 2019-04-14 18:53:2110.0[facility]annCHEM PZHJM9848-89-32 18:53:2129[facility]annCHEM WUCRK9348-99-32 18:53:214.0[facility]annCHE[facility] NODUB9100-45-66 18:53:59061Lncyxaau HermannCHEM YXCJO7412-99-12 18:53:2131[facility]annCHEM KNWLW3124-41-60 18:53:218.6[facility]annCHEM RIMZG9699-19-98 18:53:217.1 [facility]annCHE[facility] FHUZW9406-00-62 18:53:2191[facility]annCHEM PANEL 2019-04-14 18:53:210.3[facility]annCHEM UZTMJ2168-01-92 18:53:2127[facility]annCHEM MHAHR8165-68-96 18:53:2126[facility]annCHEM ZXALO7608-95-66 18:53:213.2[facility]annCHEM YSLZN5482-12-99 18:53:44446Lkwkoxyu HermannCHEM TULVK8756-88-37 18:53:212.11[facility]annCHEM TRJNX4670-55-55 18:53:53862 [facility]annCHE[facility] JUKRW1086-59-45 18:53:2123[facility] HermannHEMATOLOGY 2019-04-14 18:53:2110.7[facility] FimyhtiKYETNAREOE9000-08-40 18:53:213.7[facility] ZtvlmehBGFABBNZBH3881-23-51 18:53:210.8[facility] GgpnpzhLJVCJCVJEQ3319-66-74 18:53:214.9[facility] AorqizaWVKWIPIUIJ5169-54-11 18:53:210.8[facility] ZSDIULANAY2604-51-55 18:53:2115.8[facility] QpecjbyAPLOYQTYQE9530-25-50 18:53:21 0.3[facility] IrzbyiwGCPYCVZWGM9917-22-73 18:53:210.6[facility] HermannHEMATOLOGY 2019-04-14 18:53:2167.8[facility] DyfrxafIEHNMDISLK0876-13-62 18:53:21* Test Item Value Reference Range Interpretation Comments MCH (test code = MCH) 33.2 pg 27.0-31.0 [facility] TlqepguFBCSAXAJGS7411-44-22 18:53:2199.0[facility] HermannHEMATOLOGY 2019-04-14 18:53:2135.5[facility] AwnueptAVPQJWQYMI9124-88-80 18:53:2116.1[facility] BjdnfmvFLFWQGODKC4457-40-49 18:53:2133.6[facility] NwfipyfYKLATQMDLU8619-72-55 18:53:219.1[facility] EotzcskSHKZVKZTPH0308-49-18 18:53:98374[facility] YAMPZGAOJL8824-57-14 18:53:2111.9[facility] BrrljanEIRIHLLHZO9777-70-12 18:53:21 5.4[facility] BttoatwJLVZROMNAI3606-94-72 18:53:213.59[facility]annCHEM PANEL 2019-02-28 09:18:002.3[facility]annCHEM PEKDX9426-66-12 09:18:003.1[facility]annCHEM QFEYE7362-93-34 09:18:005.4[facility]annCHEM HLVUV4979-26-51 09:18:0023[facility]annCHEM AGANZ4511-63-57 09:18:002.9[facility]annCHEM DPVWY3977-00-06 09:18:00* Test Item Value Reference Range Interpretation Comments A/G Ratio (test code = A/G Ratio) 0.9 1 0.7-1.6 [facility]annCHE[facility] GRTUT9838-72-87 09:18:0060[facility]annCHEM PANEL 2019-02-28 09:18:000.7[facility]annCHEM VLNGA4668-42-01 09:18:005[facility]annCHEM JWJJJ5447-13-60 09:18:002.5[facility]annCHEM UPFGC5548-24-31 09:18:0026[facility]annCHEM NUKUM8196-11-23 09:18:0027[facility]annCHEM FNPNU6012-06-82 09:18:008.4[facility]annCHEM CPLXS6268-86-81 09:18:002.20 [facility]annCHE[facility] RYSME0583-36-93 09:18:40674Wydrgbhl HermannCHEM PANEL 2019-02-28 09:18:003.7[facility]annCHEM ZJPCK2084-87-59 09:18:09164Ugdbhguc HermannCHEM EDMFH5282-89-61 09:18:51904Qkhrezus HermannCHEM TGXNB1721-70-04 09:18:0028[facility]annCHEM FQBVE9845-45-91 09:18:0012.7[facility]annCHEM TKMKJ1215-87-25 09:18:00* Test Item Value Reference Range Interpretation Comments B/C Ratio (test code = B/C Ratio) 13 1 03-18 [facility] OrwaqgeZQULWFNHXV1228-63-54 09:18:008.6[facility] HermannHEMATOLOGY 2019-02-28 09:18:0097[facility] FwpmvphNTIEKGULFE0344-12-31 09:18:0016.2[facility] UilhyyoAIFWPJTZTN4872-89-54 09:18:0096.9[facility] GoqqmilKRDEVTQQXN2510-70-97 09:18:00* Test Item Value Reference Range Interpretation Comments MCH (test code = MCH) 33.1 pg 27.0-31.0 [facility] AdodmebGNJLYWNTKR6611-26-88 09:18:0034.2[facility] HermannHEMATOLOGY 2019-02-28 09:18:003.06[facility] NtxwxlmUWZEUDSNFX2602-63-27 09:18:0010.1[facility] HeeskbnLKLHAYXWBA7109-12-10 09:18:0029.6[facility] XogvdfsQAOYPYXJLV1072-85-95 09:18:008.2[facility] BxximqwLUWNZZVMFQ7242-55-12 09:18:00* Test Item Value Reference Range Interpretation Comments INR (test code = INR) 1.16 1 0.85-1.17 [facility] DwedimaMKCMTJVMFQ0716-89-93 09:18:00* Test Item Value Reference Range Interpretation Comments PTT (test code = PTT) 34.5 s 22.9-35.8 [facility]xcldxJGFSFGQZLH9568-21-44 09:18:000.53[facility]annHEMATOLOGY 2019-02-28 09:18:05760Mhtqrftm XpglbieSHJQWKZOGN2195-56-79 09:18:00* Test Item Value Reference Range Interpretation Comments PT (test code = PT) 14.6 s 12.0-14.7 [facility] VzweepuNCQJPTWRNX0754-35-97 09:18:00* Test Item Value Reference Range Interpretation Comments Thrombin Time (test code = Thrombin Time) 16.3 s 15.0-21.2 [facility] YqldnwvDFQKCHAJWP1633-80-59 09:18:000.5[facility] HermannHEMATOLOGY 2019-02-28 09:18:0078.8[facility] RerlwyeEEIDBCVJBS9381-30-15 09:18:007.4[facility] JhdheowQFFGZOVBMS1591-95-31 09:18:0011.5[facility] PenvskuVVXVPTTKPA9368-73-04 09:18:001.8[facility] PgbtlkuHIQHBZOTWK2595-44-35 09:18:006.4[facility] FDGMTPNJJP3338-77-22 09:18:000.6[facility] TvwhudaLFZTTRPTDU4094-39-08 09:18:000.9 [facility] CfjphwaQJGWSMWMKT4636-68-03 09:18:000.1[facility] HermannPARATHYROID WUGURAK6125-98-18 09:18:001.11[facility] HermannPARATHYROID CPPHIRP8470-82-72 09:18:001.12[facility] DagurjwITVRLXVYKT1267-15-62 17:09:0011.3[facility] CARDIAC BDLZMYS0563-20-98 07:01:32278Rnrcvtrd HermannCHEM EYJRY7082-58-57 07:01:003.3[facility]annCHEM MBVDN9069-78-56 07:01:002.5[facility]annCHEM EBQFE2359-30-85 07:01:005.3[facility]annCHEM UUDJD2333-55-34 07:01:009 [facility]annCHE[facility] JABRN2163-69-73 07:01:000.7[facility]annCHEM PANEL 2019-02-27 07:01:0063[facility] HermannCHEM QQHLR0160-39-34 07:01:0024[facility] HermannCHEM WUBQH5166-04-21 07:01:0029[facility]annCHEM PQDMJ9621-45-92 07:01:00* Test Item Value Reference Range Interpretation Comments A/G Ratio (test code = A/G Ratio) 0.9 1 0.7-1.6 [facility] ZIWBG2429-22-95 07:01:002.8[facility]annCHEM PANEL 2019-02-27 06:30:0028[facility] HermannCHEM RUOXS3321-89-50 06:30:004.0[facility]annCHEM OBJPY4396-07-69 06:30:60345Xchuycbo HermannCHEM KCWER7408-67-85 06:30:0023[facility]annCHEM DWAJN4652-43-05 06:30:002.10[facility] HermannCHEM PUONO2691-41-89 06:30:82214Xttziuog HermannCHEM SKGPB8328-40-70 06:30:33515 [facility] HermannCHEM FQCEU3178-54-68 06:30:008.3[facility] HermannCHEM PANEL 2019-02-27 06:30:0013.0[facility] HermannCHEM JPOZD6343-65-70 06:30:00* Test Item Value Reference Range Interpretation Comments B/C Ratio (test code = B/C Ratio) 13 1 6-25 [facility]CHE[facility] BWENN0874-44-27 06:30:002.2[facility]annCHEM PANEL 2019-02-27 05:51:000.1[facility] VmkmwowNPKYTWKCDH2681-12-49 05:51:00* Test Item Value Reference Range Interpretation Comments Thrombin Time (test code = Thrombin Time) 17.6 s 15.0-21.2 [facility]healthLfwflsqBJHTWRTQIQ1321-83-71 05:51:00* Test Item Value Reference Range Interpretation Comments PTT (test code = PTT) 29.2 s 22.9-35.8 [facility]eyjtrsNODPGSFAXX5868-79-23 05:51:57403Vjvpxbzh HermannHEMATOLOGY 2019-02-27 05:51:00* Test Item Value Reference Range Interpretation Comments INR (test code = INR) 1.29 1 0.85-1.17 [facility] AgzftngMAZDCVFPQT3805-15-75 05:51:000.64[facility] 2019-02-27 05:51:00* Test Item Value Reference Range Interpretation Comments PT (test code = PT) 15.8 s 12.0-14.7 [facility] UhldwxyMSDCMLLOIT9792-97-93 05:51:0034.2[facility]ann[facility]OLOGY 2019-02-27 05:51:0096.7[facility] DujyyfmTUJZSJUNVL9657-75-27 05:51:00* Test Item Value Reference Range Interpretation Comments MCH (test code = MCH) 33.1 pg 27.0-31.0 [facility] HidpnpoSMNEOWFGUH0344-48-57 05:51:0016.5[facility]annHEMATOLOGY 2019-02-27 05:51:30497Xpudxpho EltbxtpLCTTTQEBUC6679-02-59 05:51:008.5[facility] XcukvngBFZIKVIRUH6143-60-92 05:51:0030.9[facility] EqcowqiSCSXASSCSJ4293-09-60 05:51:0010.6[facility] WjukxalRWCGFBZBCI3678-06-28 05:51:003.20[facility] HEMTMLMMGJ5191-90-36 05:51:007.0[facility] MhccsspPQGJDWBBZY9075-10-42 05:51:000.5 [facility] CixpcivGCQFRVJZOR5697-27-84 05:51:000.7[facility]annHEMATOLOGY 2019-02-27 05:51:007.7[facility] PlwnjquASQIIXVRWW5202-45-66 05:51:000.5[facility] ClrjufrFUZGQEECOC9649-26-88 05:51:005.7[facility] ZfiajyfKYGFHWPNBO9250-56-02 05:51:009.5[facility] PyltlunJNPLWMABPT6296-88-80 05:51:000.7[facility] LCPYTYMSYU1641-24-02 05:51:0081.6[facility] HermannPARATHYROID CQTHBBZ2303-52-94 05:51:001.05[facility] HermannPARATHYROID GCQMAIB1040-02-89 05:51:001.00[facility] HermannCHEM AMGKI9701-66-10 20:31:001.7[facility] HermannCHEM CZREO4409-04-06 20:31:0039[facility] HermannCHEM JNKHR5989-32-22 20:31:34459Lmrelaiy HermannCHEM KKWPK0108-21-81 20:31:0023[facility] HermannCHEM HYGFY5796-65-59 20:31:001.65 [facility]annCHEM HNUHY9592-41-76 20:31:0022[facility] HermannCHEM PANEL 2019-02-26 20:31:006.7[facility]annCHEM DYFZN9426-90-35 20:31:0012.3[facility] HermannCHEM RDDMP7428-00-19 20:31:49288Gkbqhwlp HermannCHEM FYQUJ3106-41-92 20:31:003.3[facility] HermannCHEM LVGIM3862-06-79 20:31:73746Iipbyrxm [facility]annCHEM FNLZB2055-70-83 20:31:002.9[facility] HbzuulcBAFNNKOLVB7662-16-62 20:31:000.77 [facility]BpodpmrDIZKGKPVVL1862-31-59 20:31:00* Test Item Value Reference Range Interpretation Comments PTT (test code = PTT) 28.1 s 22.9-35.8 [facility] AntonioNrgexrzUOVQEXGRQV5215-82-03 20:31:00* Test Item Value Reference Range Interpretation Comments PT (test code = PT) 14.8 s 12.0-14.7 [facility] AntonioBcoriswSAKXLPDVRU2387-04-47 20:31:00* Test Item Value Reference Range Interpretation Comments INR (test code = INR) 1.18 1 0.85-1.17 [facility] AntonioXuiwfrvLOZHNMZMBH2128-20-64 20:31:27474Epyucjja [facility]annHEMATOLOGY 2019-02-26 20:31:00* Test Item Value Reference Range Interpretation Comments Thrombin Time (test code = Thrombin Time) 19.2 s 15.0-21.2 [facility] AntonioOqawqttDPYTTSFKCC9923-53-74 20:31:008.6[facility]annHEMATOLOGY 2019-02-26 20:31:50453Uoguowie YzfourlXKXZPXVVMD5950-93-16 20:31:0016.3[facility] ClljfqhRGWXTFBMCO5568-73-16 20:31:0034.2[facility] AnftfmhJVFSOSSOWG6982-97-72 20:31:00* Test Item Value Reference Range Interpretation Comments MCH (test code = MCH) 33.2 pg 27.0-31.0 [facility] TrjoitgRHWNACZVQP3936-88-33 20:31:0096.9[facility]annHEMATOLOGY 2019-02-26 20:31:0034.6[facility] DlkfkroZCJXAYNKDD8254-51-53 20:31:003.57[facility] WnknfwbOQOBPBQPUX5639-37-73 20:31:0010.3[facility] TspzjqrJATNHPUHHK3947-25-52 20:31:000.1[facility] PumhrdvQYFFTQIATG4309-66-57 20:31:000.8[facility] JFTTKWSKQC6417-42-68 20:31:000.7[facility] PvoevfiDQSPGCMYCU1998-38-03 20:31:008.6 [facility] XjluzzoWRYVHUBJMZ8210-83-49 20:31:000.3[facility]annHEMATOLOGY 2019-02-26 20:31:000.7[facility] PhrgtclKIGOUJDVFI3816-30-09 20:31:008.1[facility] IwfcluvADVNLEZOYM4613-67-36 20:31:007.1[facility] AwfwftnWKNGZCUPBM9013-48-35 20:31:0083.8[facility] HermannPARATHYROID XPNYDBK4555-22-80 20:31:001.09[facility] HermannPARATHYROID CRGUHXS7491-23-93 20:31:001.11[facility]annHEMATOLOGY 2019-02-26 18:09:000.1[facility] WBAKGMQ4851-57-96 18:06:00 Product available (02/26/19 1:06 PM)[facility] FmjoofgXKGLVCFZTM5340-34-00 16:36:00 0.1[facility] NjatyloVSGLWGXNFZ5037-79-95 15:40:00* Test Item Value Reference Range Interpretation Comments POC Activated Clotting Time (test code = POC Activated Clotting Gianluca e) 137 s [facility] BdsnmnaPDXMTMEUZK0905-08-62 14:54:00* Test Item Value Reference Range Interpretation Comments POC Activated Clotting Time (test code = POC Activated Clotting Gianluca e) 278 s [facility] LhbjvziRRCLXVBBTL6669-29-28 14:20:00* Test Item Value Reference Range Interpretation Comments POC Activated Clotting Time (test code = POC Activated Clotting Gianluca e) 288 s [facility] Hive7 BANK AOLABWU0239-29-08 12:31:00Product available (02/26/19 7:31 AM)[facility] BANK HGJECDB1946-53-80 12:31:00Product available (02/26/19 7:31 AM)[facility] BANK NEZHKQZ5682-91-29 11:06:00Negative (02/26/19 6:06 AM)[facility] AesquxqMBOQLDZOYG4382-89-15 11:05:000.1[facility] CHEM TKCTX6488-20-58 19:19:3924[facility]annCHEM GLVXL2525-71-05 19:19:3928 [facility]annCHE[facility] AZJLS2846-92-22 19:19:398.6[facility]annCHEM PANEL 2019-02-24 19:19:09438Mqfkrhmk HermannCHEM UHVKW0538-35-71 19:19:394.1[facility]annCHEM MHDTO8294-34-13 19:19:99033Zsabarvd HermannCHEM XFXFQ2925-72-20 19:19:399.1[facility]annCHEM WPDJF2576-67-72 19:19:392.46[facility]annCHEM NPGZL3368-57-11 19:19:3930[facility]annCHEM SLXMO0857-79-98 19:19:26876 [facility]annCHEM AEYOG1359-15-79 15:48:0029[facility]annCHEM PANEL 2019-02-19 15:48:002.1[facility]annCHEM KXFQS0966-06-90 22:02:58* Test Item Value Reference Range Interpretation Comments A/G Ratio (test code = A/G Ratio) 0.8 1 0.7-1.6 [facility]annCHE[facility] MJTJC6402-17-09 22:02:586.8[facility]annCHEM PANEL 2019-02-04 22:02:58* Test Item Value Reference Range Interpretation Comments B/C Ratio (test code = B/C Ratio) 16 1 6-25 [facility]annCHE[facility] RRDBA1656-26-71 22:02:583.9[facility]annCHEM PANEL 2019-02-04 22:02:00513Tvclqfzi HermannCHEM YSYPP3146-82-15 22:02:5836[facility]annCHEM GQBZU8086-69-86 22:02:51369Ylmpoxkc HermannCHEM RBLSC4734-91-39 22:02:583.8[facility]annCHEM HBAUE4317-23-00 22:02:73125Slpgcixy HermannCHEM KKTJQ6093-26-66 22:02:588.7[facility]annCHEM FZPRH0018-16-03 22:02:587.2 [facility]annCHEM HYQXE6053-63-45 22:02:5832[facility]annCHEM PANEL 2019-02-04 22:02:5886[facility]annCHEM NJOYB0360-02-49 22:02:580.3[facility]annCHEM KWINM6652-64-38 22:02:583.3[facility]annCHEM VKIPO4141-82-47 22:02:5845[facility]annCHEM EEISY9561-36-31 22:02:5829[facility]annCHEM NXJTP3470-07-35 22:02:582.27[facility]annCHEM HTHXJ8147-26-73 22:02:5826 [facility] GhzddhgITEDUFJFOQ9919-07-68 22:02:583.73[facility]annHEMATOLOGY 2019-02-04 22:02:5812.3[facility] SznjfndKYHFRBFRPB0206-28-71 22:02:5836.9[facility] IsoaqtiZXVKVQJDPO1909-61-86 22:02:5815.5[facility] AcchspzVDWDKJNCXN0021-73-25 22:02:5898.9[facility] BudhfudMYKTPWVKVZ8992-07-96 22:02:58* Test Item Value Reference Range Interpretation Comments MCH (test code = MCH) 33.0 pg 27.0-31.0 [facility] NodealmRLMIZYNUKM5709-39-68 22:02:62583Acmouvvc HermannHEMATOLOGY 2019-02-04 22:02:5833.3[facility] AjjmthzAZOZGGOLEV9460-90-36 22:02:586.3[facility] FpiwtzlKDLGXQRSKG1271-20-23 22:02:588.8[facility] BsilanvPKQURYXSZF0568-44-59 22:02:5867.2[facility] NnzvqtoMTKCPNQFEJ5614-50-02 22:02:584.3[facility] AAUXSGHOBI1642-57-00 22:02:5817.4[facility] OfgdgcoZYBHVNAUFG6540-26-57 22:02:58 10.3[facility] WqkvrxqUREVJSXIZY0073-19-54 22:02:584.3[facility]annHEMATOLOGY 2019-02-04 22:02:581.1[facility] DqmahywZHRHRWKOKH4945-30-46 22:02:580.7[facility] LsyvqxnSUQHKKWAXP3685-90-63 22:02:580.8[facility] NlcdxlqTBRJEXLAPV8856-85-05 22:02:580.1[facility] PdespifKCCZLWABZU0845-81-59 22:02:580.3[facility] HermannCHEM OGNGZ9028-78-24 11:08:002.1[facility] HermannCHEM JPDKB6848-01-59 11:08:004.0 [facility]annCHEM LHYAU7709-77-34 11:08:0027[facility]annCHEM PANEL 2018-11-28 11:08:40234Coeednlp HermannCHEM JEMJE1096-51-18 11:08:96400Pgzntpau HermannCHEM BUSGA2138-42-15 11:08:74135Dfjngceo HermannCHEM PFTUT7199-07-24 11:08:002.20[facility]annCHEM PBBSI9620-87-67 11:08:0027[facility]annCHEM WIPHW9143-78-50 11:08:008.0[facility]annCHEM CXTGM4831-08-88 11:08:004.2 [facility]annCHEM DHAFB5418-79-90 11:08:0026[facility]annCHEM PANEL 2018-11-28 11:08:0010.2[facility] PuozlpdFIBQKUSPNV5686-93-13 11:08:007.6[facility] JovtzvfAGASZDRRVE4108-38-55 11:08:003.23[facility] EydfjfoMJNIHGVUJY0392-15-53 11:08:0010.7[facility] PcimyauCUWVQSIPCD3718-94-75 11:08:0033.8[facility] LAJPDJAEQV0437-09-18 11:08:0014.5[facility] EfemkyiLZCBJXZJQZ1357-49-64 11:08:00 31.7[facility] RwlwafeWUCAXMZZVI3716-90-95 11:08:0098.2[facility]annHEMATOLOGY 2018-11-28 11:08:00* Test Item Value Reference Range Interpretation Comments MCH (test code = MCH) 33.2 pg 27.0-31.0 [facility] MiselitEETXBMZYIA5282-53-65 11:08:87856Jrdvwjrh HermannHEMATOLOGY 2018-11-28 11:08:008.2[facility] WtnmsyfAUFVWLQEOJ3569-75-80 11:08:000.7[facility] VibzergKWMYZTPBFK8061-17-71 11:08:000.8[facility] IngmtafXLCJQDKGEJ2229-32-77 11:08:000.9[facility] KyeyszsWBZIOBGIMH3443-28-48 11:08:006.0[facility] UVIKUJDCLV5310-93-20 11:08:0078.8[facility] WjfyiquPBAWYQCBDQ8982-13-14 11:08:00 11.3[facility] YiznzonCKCCOMLUHF8541-39-71 11:08:008.4[facility]annHEMATOLOGY 2018-11-28 11:08:000.6[facility] XgumtioBNFGSSFDVY1401-59-92 11:08:000.1[facility] AkoyiceOZPOBIWJKC4094-93-24 11:08:000.1[facility] SfzmazrLZVFHSQIRT9901-81-42 04:19:000.4[facility] RqzoskfPANBQXXOXP7450-17-58 04:19:000.8[facility] RHELCQUVGL7414-46-34 04:19:000.1[facility] AxdlapaQTEWPFEUJW6173-45-94 04:19:000.1 [facility] HjjodqxQUIPTDUCVS2504-42-84 04:19:0086.7[facility]annHEMATOLOGY 2018-11-28 04:19:008.5[facility] NnmkzfcJPCSUGKTPI0563-00-12 04:19:000.5[facility] CwfzxepDSRNPCNAOS0447-13-56 04:19:000.7[facility] ZzdrgfsBKCGQXGGYU4442-90-09 04:19:004.2[facility] GvkzclcKRVYKZGBNP1172-52-96 04:19:007.9[facility] TMWQKTTVWY7240-55-78 04:19:0014.7[facility] GiohfekGRYGMGGRVM2062-59-85 04:19:00 33.7[facility] BhrudqrTKRNOJKABA7823-87-29 04:19:00* Test Item Value Reference Range Interpretation Comments MCH (test code = MCH) 33.3 pg 27.0-31.0 [facility] MypbcnfXYEYJTWIJS5077-71-10 04:19:21095Zxagivxl HermannHEMATOLOGY 2018-11-28 04:19:008.4[facility] WckdotpWZFXBRGAOA0427-25-01 04:19:0098.7[facility] GlhdgdnXJVYHFFFPH2921-14-26 04:19:003.65[facility] SoariitMWOWBXOZGX0757-07-36 04:19:0036.0[facility] IpydbyrBIDZKKVHXX5961-58-72 04:19:0012.2[facility] OOCHPYUNND5901-04-39 04:19:009.8[facility] ZqdudwpKXQLLNNKQT1848-28-11 01:17:009.0 [facility] KnmtxjqEXAAJQJUGT6343-55-32 01:17:0026.9[facility]annHEMATOLOGY 2018-11-28 01:17:09857Tqzebvpm HrlcgavVNJWHZKUUG8539-78-00 01:17:00* Test Item Value Reference Range Interpretation Comments POC Activated Clotting Time (test code = POC Activated Clotting Gianluca e) 179 s [facility]annBLO[facility] B[facility] KVYKLIV7586-44-28 18:02:00Negative (11/27/18 12:02 PM) [facility]annCHEM DLYHE1318-69-16 18:02:002.1[facility] HermannELECTROLYTES 2018-11-27 18:02:0011.5[facility] AsapjajDXZTEHKKDRNS8977-68-74 18:02:0025[facility] AvoyxbcCGMLSXYGKNAK2105-18-67 18:02:0031[facility] JrbcpglNZOEGHZBRZDV4979-02-41 18:02:009.0[facility] GcuzsgqNPNAUQHEIBEU9943-26-02 18:02:02457Jmvzozwr Frank LVFYONXLZZQK4791-93-98 18:02:81453Nlbczymc AftmbhvYGLEIJEWVBWK7865-87-99 18:02:004.5[facility] LtmmuanJJEPKECXLBKV6012-87-72 18:02:002.36[facility] DDLXMBGSUUXJ6690-55-46 18:02:0028[facility] JxjtxcrGIXKFWUJNNWY2500-61-15 18:02:00 120[facility] NhdefqiYSPMXACTZT9385-68-17 18:02:004.6[facility]annHEMATOLOGY 2018-11-27 18:02:000.9[facility] UilrpaqYCLKARNYNF8309-78-99 18:02:002.4[facility] AighujoEMTJETTCEZ9458-60-66 18:02:008.1[facility] KrflxpmDOABCCPSCC8148-74-39 18:02:0014.3[facility] HznqwiwJILQVENJTT5634-48-62 18:02:0074.3[facility] OPMUBSDIXW5159-08-87 18:02:000.9[facility] WtpevnwXTVSAGNFFR2939-19-42 18:02:000.1 [facility] DnychtjTWSTGJUGSO8864-54-08 18:02:000.1[facility]annHEMATOLOGY 2018-11-27 18:02:000.5[facility] NjsyviyPFHPCCEKKS0075-93-35 18:02:00* Test Item Value Reference Range Interpretation Comments PT (test code = PT) 13.4 s 12.0-14.7 [facility] EwscnadVKWEDCWJLP6239-49-06 18:02:00* Test Item Value Reference Range Interpretation Comments PTT (test code = PTT) 27.7 s 22.9-35.8 [facility] LpwjvubEXXAIAFYDQ6438-67-33 18:02:00* Test Item Value Reference Range Interpretation Comments INR (test code = INR) 1.04 1 0.85-1.17 [facility]ETWS[facility]30[facility] 18:02:00* Test Item Value Reference Range Interpretation Comments MCH (test code = MCH) 33.4 pg 27.0-31.0 [facility] GlxctxuCOGAFDCHXF6775-33-46 18:02:0097.9[facility]annHEMATOLOGY 2018-11-27 18:02:008.5[facility] TpdfpddCBQWARJZOH9865-19-66 18:02:0034.1[facility] RbiypppORUSKBNLYA2754-98-27 18:02:0014.3[facility] UviecbjHFEQGDYNBU2233-24-68 18:02:006.2[facility] CjiakrgGUYVWXHPZV7515-60-13 18:02:004.13[facility] CHEST 2 OFNSD2841-07-93 14:51:00 [place] [address] Patient Name: CELI SARMIENTO MR #: [id number] : 1940 Age/Sex: 78/M Req #: [id number] Adm Physician: Ordered by: RINA VASQUEZ MD Report #: [id number] Location: [facility] Room/Bed: Procedure: [id number] D X/CHEST 2 VIEWS Exam Date: 11/06/18 [...] 2:52 PM Dictated By: CHRIS GANNON MD [id number] Tr anscribed By: MASTER on 11/06/18 4494 COPY TO: RINA VASQUEZ MD US PELVIC (NON OB) HAGAN OR F/U [place] [address] Patient Name: CELI SARMIENTO MR #: [id number] : 1940 Age/Sex: 77/M Req #: [id number] Adm Physician: Ordered by: ZEFERINO NGUYEN MD Report #: [id number] Location: Room/Bed: Procedure: [id number] US/US PELVIC (NON OB) HAGAN O R [...] on 10/18/171621 COPY TO: ZEFERINO NGUYEN MD RENAL RETROPERITONEAL COMP [place] [address] Patient Name: CELI SARMIENTO MR #: [id number] : 1940 Age/Sex: 77/M Req #: [id number] Adm Physician: Ordered by: ZEFERINO NGUYEN MD Report #: [id number] Location: US Room/Bed: Procedure: [id number] US/US RENAL RETROPERITONEAL COMP Exam Date: 10/18/17 [...]
--- OUTSIDE RECORDS SUMMARY | 2020-08-20 21:29 | XMS REPORT | Continuity of Care Document ---
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 Role Phone [employer] Information Exchange Unavailable Un available Problems Problem Status Onset Date Classification Date Reported Comments Source 4MONTH FOLLOW UP Active 03/22/2020 [facility] ECHO Active 04/14/2019 [facility] 1 MONTH F/U Active 03/17/2019 [facility] HOSPITAL FU Active 03/03/2019 [facility] PREADMIT / TAVR / MAC / TTE Ac tive 02/25/2019 [facility] I35.0 Active 02/10/2019 [facility] FOLLOW UP Active 02/04/2019 [facility] I25.10 Active 01/09/2019 [facility] 4 WK F/U Active 11/28/2018 [facility] CCL / LHC -SCA Active 11/13/2018 [facility] INCREASED SHORTNESS OF BREATH Active 11/06/2018 [facility] Ischemic cardiomyopathy 11/04/2018 05/19/2019 [facility] 4 MONTH FOLLOW UP Active 09/30/2018 [facility] Atherosclerotic heart disease of [place] coronary artery without angina pectoris 06/08/2018 12/21/2018 [facility] F/U Active 0 03/05/2018 [facility] 2 MONTH F/U Active 12/24/2017 [facility] ICMP Active 08/27/2017 [facility] 6 WEEK F/U Active 04/30/2017 [facility] 2 WEEK F/U Active 03/06/2017 [facility] CHF Active 0 03/01/2017 [facility] Atrial fibrillation (disorder) Resolved Problem [facility] Coronary arteriosclerosis (disorder) Resolved Problem [facility] Chronic kidney disease (disorder) Resolved Problem [facility] Diabetes mellitus (disorder) R esolved Problem [facility], [facility] Hyperlipidemia (disorder) Reso lved Problem [facility], [facility] Hypertensive disorder, systemic arterial (disorder) Resolved Problem 05/13/2020 [facility] Systolic heart failure (disorder) Resolved Problem [facility], [facility] Heart [facility] Chronic atrial fibrillation 05/19/2019 [facility] 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 05/19/2019 [facility] Type 2 diabetes mellitus with diabetic c hronic kidney disease 05/19/2019 [facility] Hypertensive chronic kidney disease with stage 1 through stage 4 chronic kidney disease, or unspecified chronic kidney disease 12/21/2018 [facility] Chronic kidney disease, stage 3 (moderate) 05/19/2019 [facility] Gout (disorder) Resolved Problem 05/13/2020 [facility] Nonrheumatic aortic (valve) stenosis 12/21/2018 [facility] Hyperlipidemia, unspecified 12/21/2018 [facility] Presence of coronary angioplasty implant and graft 12/21/2018 [facility] long-term (current) use of aspirin 12/21/2018 [facility] long-term (current) use of antithromboti cs/antiplatelets 12/21/2018 [facility] 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 and stage 1 through stage 4 chronic kidney disease, or unspecified chronic kidney disease 05/19/2019 [facility] Unspecified systolic (congestive) heart failure 05/19/2019 [facility] ENCNTR FOR GENERAL ADULT MEDICAL EXAM W/ Active [facility] CARDIOMYOPATHY, UNSPECIFIED Ac tive [facility] ATHSCL HEART DISEASE OF [place] CORONARY Active [facility] NONRHEUMATIC AORTIC (VALVE) STENOSIS Active [facility] Medications Medication Details Route Status Patient Instructions Ordering Provider Order Date Source Hydralazine Hydrochloride 50 MG Oral Tablet 50 mg = 1 tab, PO, BID, # 180 tab, 3 Refill(s), Pharmacy: [facility], 178.31, cm, 05/11/20 10:13:00 CDT, Height, 97.727, kg, 05/11/20 10:13:00 CDT, Weight Active 05/11/2020 [facility] carvedilol 25 mg oral tablet 2 5 mg = 1 tab, PO, BID, 0 Refill(s) Active 05/11/2020 [facility] omeprazole 40 mg oral delayed release capsule 40 mg = 1 cap, PO, Daily, # 30 cap, 1 Refill(s) Active 05/11/2020 [facility] Losartan Notes: (Same as: Palak gautam) No Longer Active 03/01/2019 [facility] Aspirin 81 MG Enteric Coated Tablet 81 mg = 1 tab, PO, Daily, 0 Refill(s) Active 02/28/2019 [facility] vancomycin Notes: TIME CRITICA L MEDICATION (Same As: Vancocin) For adult patients only: Round to nearest 250 mg per Medical Staff approval Inactive 02/28/2019 [facility] Vancomycin Notes: TIME CRITICA L MEDICATION (Same As: Vancocin) For adult patients only: Round to nearest 250 mg per Medical Staff approval Inactive 02/27/2019 [facility] acetaminophen-codeine #3 Notes : Do not exceed 4gm/day of acetaminophen. (Same as: Tylenol with Codeine # 3) No Longer Active 02/27/2019 [facility] Miralax Notes: Dissolve in 8 o z of water or juice. (Same as: Miralax) No Longer Active 02/27/2019 [facility] Lactulose 667 MG/ML Oral Solution Notes: (Same as:Chronulac) No Longer Active 02/27/2019 [facility] Allopurinol Notes: (Same as: Z yloprim) No Longer Active 02/27/2019 [facility] Potassium Chloride Notes: ([facility] e as: K-Dur 20) "Do Not Crush" Give with food and full glass of water For patients unable to swallow tablet, dissolve in one half glass of water. Allow about 2 minutes for the tab lets to disintegrate. Stir before giving to prepare slurry and administer. Please exclude Patients with feeding tube less than 14 Malagasy (Dobhoff, J-tube etc) and pediatric and patients. No Longer Active 02/27/2019 [facility] Magnesium Oxide Notes: (Same a s: Mag-Ox 400) Magnesium oxide [id number] elemental magnesium Dose=____mg magnesium oxide (___mg elemental magnesium) No Longer Active 02/27/2019 [facility] Losartan Notes: (Same as: Coza ar) No Longer Active 02/27/2019 [facility] Imdur Notes: (Same as:Imdur) " Do Not Crush" Take on empty stomach/ full glass of water. Do not crush No Longer Active 02/27/2019 [facility] Aspirin Notes: Do not crush or chew. (Same As: Ecotrin) No Longer Active 02/27/2019 [facility] Furosemide 20 MG Oral Tablet N otes: (Same as: Lasix) May cause GI upset. Give with food or milk. No Longer Active 02/27/2019 [facility] Dexilant 60 mg, Route: PO, Manny g form: DRC, Daily, Dosing Weight 93.636, kg, Start date: 02/27/19 9:00:00 CDT, Duration: 30 day, Stop date: 03/28/19 9:00:00 CDT No Longer Active 02/27/2019 [facility] Protonix Notes: Tablet should not be chewed or crushed. (Same as: Protonix) No Longer Active 02/27/2019 [facility] heparin Notes: porcine heparin No Longer Active 02/27/2019 [facility] vancomycin Notes: TIME CRITICA L MEDICATION (Same As: Vancocin) For adult patients only: Round to nearest 250 mg per Medical Staff approval Inactive 02/27/2019 [facility] sennosides, LONGTERM Notes: (Same a s: Senokot) No Longer Active 02/27/2019 [facility] Docusate Sodium 100 MG Oral Capsule [Colace] Notes: (Same as: Colace) (Do Not Crush) No Longer Active 02/27/2019 [facility] Brilinta Notes: (Same as: Bril inta) No Longer Active 02/27/2019 [facility] carvedilol Notes: Give with fo od. (Same As: Coreg) No Longer Active 02/27/2019 [facility] Crestor Notes: (Same As: Crest or) No Longer Active 02/27/2019 [facility] Hydralazine Hydrochloride 25 MG Oral Tablet Notes: (Same as: Apresoline) May interfere w/enteral feedings Take With Food. No Longer Active 02/27/2019 [facility] ferrous sulfate Notes: Give wi th food. "Do Not Crush" No Longer Active 02/27/2019 [facility] Potassium Chloride Notes: (Kevyn e as: KCL) Infuse no faster than 10 mEq/hr if given peripherally. Inactive 02/26/2019 [facility] potassium chloride 20 mEq oral tablet, [...] Patients with feeding tube less than 14 Malagasy (Dobhoff, J-tube etc) and pediatric and patients. Inactive 02/26/2019 [facility] Amiodarone Notes: Same as: Edy chi Pacerone No Longer Active 02/26/2019 [facility] Fentanyl Notes: (Same as: Subl imaze) Preservative free. Inactive 02/26/2019 [facility] Acetaminophen 325 MG / Hydrocodone Ramiro trate 5 MG Oral Tablet [[place] 5/325] Notes: (Same as: [place] 325/5) Do not ex ceed 4gm/day of acetaminophen. No Longer Activ e 02/26/2019 [facility] Calcium Gluconate Notes: WASTE : F/P - Sink; E - Municipal Trash Bin No Longer Active 02/26/2019 [facility] Magnesium Sulfate Notes: WASTE : F/P - Sink; E - Municipal Trash Bin Inactive 02/26/2019 [facility] Nicardipine Notes: Same as: Ca rdene Concentration: (0.2 mg /1 ml ) No Longer Active 02/26/2019 [facility] Nitroglycerin Notes: (Same as: Tridil) Final conc = 0.4 mg/ml. Premix bottle. No Longe r Active 02/26/2019 [facility] Ondansetron Notes: (Same as: Abdulkadir carpenter) MEDICATION WASTE Product Size: 4 mg Product Wasted: ___ mg Inactive 02/26/2019 [facility] Flumazenil Notes: (Same as: Ro mazicon) Inactive 02/26/2019 [facility] Naloxone Notes: Same as Narcan Inactive 02/26/2019 [facility] Fentanyl Notes: (Same as: Subl imaze) Preservative free. Inactive 02/26/2019 [facility] propofol (ANES) Route: IV, Manny g form: INJ, ONCE, Stop date: 02/26/19 11:05:00 CDT Inactive 02/26/2019 [facility] protamine (ANES) Route: IV, Dr ug form: INJ, ONCE, Stop date: 02/26/19 11:00:00 CDT Inactive 02/26/2019 [facility] heparin (ANES) Route: IV, Drug form: INJ, ONCE, Stop date: 02/26/19 9:34:00 CDT Inactive 02/26/2019 [facility] nt fentaNYL (ANES) Route: IV, Manny g form: INJ, ONCE, Stop date: 02/26/19 9:18:00 CDT Inactive 02/26/2019 [facility] nt propofol (ANES) 10 mg Route: I V, Drug form: INJ, Start date: 02/26/19 8:03:00 CDT, Stop date: 02/26/19 9:03:00 CDT Inactive 02/26/2019 [facility] Sodium Chloride 0.9% IV (ANES) 1000 mL Route: IV, Total Volume: 1,000, Start date: 02/26/19 7:52:00 CDT, Stop date: 02/26/19 8:52:00 CDT Inactive 02/26/2019 [facility] normal saline 0.9% IV 1,000 mL 1,000 mL, Rate: 75 ml/hr, Infuse over: 13.3 hr, Route: IV, Dosing Weight 93.636 kg, Total Volume: 1,000, Start date: 02/26/19 6:01:00 CDT, Duration: 13 hr, Stop date: 02/26/19 19:00:00 CDT, 2.18, m2 Inactive 02/26/2019 [facility] DOBUTamine 50 mg + Dextrose 5% in Water IV 46 mL Notes: (Same as: Dobutrex) Not for direct administration- DILUTE. No Longer Active 01/21/2019 [facility] Vitamin D3 2000 intl units oral capsule 2,000 IntlUnit = 1 cap, PO, Daily, # 100 cap, 3 Refill(s) Active 01/16/2019 [facility] Imdur Notes: (Same as:Imdur) " Do Not Crush" Take on empty stomach/ full glass of water. Do not crush Inactive 11/28/2018 [facility] Hydralazine Hydrochloride 25 MG Oral Tablet Notes: (Same as: Apresoline) May interfere w/enteral feedings Take With Food. Inactive 11/28/2018 [facility] Furosemide 20 MG Oral Tablet N otes: (Same as: Lasix) May cause GI upset. Give with food or milk. Inactive 11/28/2018 [facility] Dexilant Notes: Same as: Kapid ex "Do Not Crush" Non- Formulary Inactive 11/28/2018 [facility] carvedilol Notes: Give with fo od. (Same As: Coreg) Inactive 11/28/2018 [facility] Allopurinol Notes: (Same as: Z yloprim) Inactive 11/28/2018 [facility] Amiodarone Notes: Same as: Cor alon, Pacerone Inactive 11/28/2018 [facility] Aspirin 81 MG Enteric Coated Tablet Notes: Do not crush or chew. (Same As: Ecotrin) Inactive 11/28/2018 [facility] Brilinta Notes: (Same as: Bril inta) Inactive 11/28/2018 [facility] Potassium Chloride Notes: (Kevyn e as: K-Dur 20) "Do Not Crush" Give with food and full glass of water For patients unable to swallow tablet, dissolve in one half glass of water. Allow about 2 minutes for the tab lets to disintegrate. Stir before giving to prepare slurry and administer. Please exclude Patients with feeding tube less than 14 Malagasy (Dobhoff, J-tube etc) and pediatric and patients. Inactive 11/28/2018 [facility] Losartan Notes: (Same as: Palak gautam) Inactive 11/28/2018 [facility] ticagrelor 90 mg oral tablet 9 0 mg = 1 tab, PO, Q12H, # 180 tab, 3 Refill(s), Pharmacy: [facility] Active 11/28/2018 [facility] ticagrelor 90 mg oral tablet 9 0 mg = 1 tab, PO, Q12H, # 180 tab, 3 Refill(s) Inactive 11/28/2018 [facility] Aspirin 81 MG Enteric Coated Tablet 81 mg = 1 tab, PO, Daily, # 30 tab, 0 Refill(s) Active 11/28/2018 [facility] ticagrelor 90 mg oral tablet 9 0 mg = 1 tab, PO, Q12H, # 180 tab, 0 Refill(s) Inactive 11/28/2018 [facility] ferrous sulfate Notes: Give wi th food. 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, Stop date: 11/27/18 20:56:00 APPRAISER OIL AND WATER Inactive 11/28/2018 [facility] Atropine 1 mg, Route: IVP, ONC E, Dosing Weight 95, kg, Start date: 11/27/18 19:30:00 APPRAISER OIL AND WATER, Stop date: 11/27/18 19:30:00 APPRAISER OIL AND WATER Inactive 11/28/2018 [facility] Hydralazine Notes: (Same as: A presoline) Push over 5 minutes No Longer Active 11/27/2018 [facility] Sodium Chloride 0.9% IV 250 mL 250 mL, Rate: 50 ml/hr, Infuse over: 5 hr, Route: IV, Dosing Weight 95 kg, Total Volume: 250, Start date: 11/27/18 17:06:00 APPRAISER OIL AND WATER, Duration: 24 hr, Stop date: 11/28/18 17:05:00 APPRAISER OIL AND WATER, 2.2, m2 No Longer Active 11/27/2018 [facility] apixaban 2.5 MG Oral Tablet [Eliquis] 2.5 mg, PO, Q12H, 0 Refill(s) Active 11/27/2018 [facility] AMIODarone 100 mg oral tablet 100 mg = 1 tab, PO, BID, # 60 tab, 0 Refill(s) Active 11/27/2018 [facility] Rosuvastatin calcium 10 MG Oral Tablet [Crestor] 10 mg = 1 tab, PO, Bedtime, # 90 tab, 1 Refill(s) Active 11/27/2018 [facility] Sodium Chloride 0.9% (Bolus) IV 250 mL, 250 ml/hr, Infuse Over: 1 hr, Route: IV, 250, Drug form: INJ, ONCALL, Priority: Routine, Dosing Weight 95 kg, Start date: 11/27/18 12:00:00 APPRAISER OIL AND WATER, Duration: 1 doses or times Inactive 11/27/2018 [facility] Sodium Chloride 0.9% IV 750 mL 750 mL, Rate: 75 ml/hr, Infuse over: 10 hr, Route: IV, Dosing Weight 95 kg, Total Volume: 750, Start date: 11/27/18 11:53:00 APPRAISER OIL AND WATER, Duration: 24 hr, Stop date: 11/28/18 11:52:00 APPRAISER OIL AND WATER, 2.2, m2 No Longer Active 11/27/2018 [facility] sennosides, LONGTERM 8.6 MG Oral Tablet [Senna-Time] 8.6 mg = 1 tab, PO, Bedtime, 0 Refill(s) Active 11/12/2018 [facility] Diphenhydramine Hydrochloride 25 MG Oral Tablet [Benadryl] 25 mg = 1 tab, PO, Bedtime, 0 Refill(s) Active 11/12/2018 [facility] ferrous sulfate 325 MG Oral Tablet 325 mg = 1 tab, PO, Bedtime, 0 Refill(s) Active 11/12/2018 [facility] Elisha Move Free BID, 0 Refill (s) Active 11/12/2018 [facility] rosuvastatin 10 mg oral tablet 10 mg = 1 tab, PO, Bedtime, # 90 tab, 3 Refill(s), [facility] No Longer Active 07/09/2018 [facility] Ticagrelor 60 MG Oral Tablet [Brilinta] 60 mg = 1 tab, PO, BID, # 60 tab, 3 Refill(s), Pharmacy: [facility] [id number] Active 12/24/2017 [facility] AMIODarone 100 mg oral tablet 200 mg = 2 tab, PO, Daily, # 60 tab, 0 Refill(s), Pharmacy: [facility] [id number] Active 12/24/2017 [facility] AMIODarone 100 mg oral tablet 200 mg = 2 tab, PO, Daily, # 60 tab, 0 Refill(s) Inactiv e 12/24/2017 [facility] Aspirin 81 MG Enteric Coated Tablet 81 mg = 1 tab, PO, Daily, # 90 tab, 3 Refill(s) Active 12/24/2017 [facility] AMIODarone 100 mg oral tablet 200 mg = 2 tab, PO, Daily, # 60 tab, 0 Refill(s) Inactiv e 12/24/2017 [facility] prasugrel 10 mg oral tablet 10 mg = 1 tab, PO, Daily, # 30 tab, 3 Refill(s) Inactive 12/24/2017 [facility] Nephro-Dario Rx 1 tab, PO, Charanjit y, 0 Refill(s) Active 12/24/2017 [facility] Nitroglycerin 0.4 MG Sublingual Tablet [Nitrostat] 0.4 mg = 1 tab, SL, Q5Min, PRN Chest Pain, # 100 tab, 0 Refill(s) Active 12/24/2017 [facility] rosuvastatin 10 mg oral tablet 10 mg = 1 tab, PO, Bedtime, # 90 tab, 0 Refill(s) Active 12/24/2017 [facility] Vitamin D3 1000 intl units oral tablet 2,000 IntlUnit = 2 tab, PO, Daily, # 30 tab, 0 Refill(s) Active 12/24/2017 [facility] carvedilol 12.5 mg oral tablet 12.5 mg = 1 tab, PO, BID, # 180 tab, 1 Refill(s) Active 12/24/2017 [facility] losartan 25 mg oral tablet 25 mg = 1 tab, PO, Daily, # 90 tab, 0 Refill(s) Active 08/27/2017 [facility] Rosuvastatin calcium 5 MG Oral Tablet [Crestor] 5 mg = 1 tab, PO, Bedtime, # 90 tab, 3 Refill(s), Pharmacy: [facility] Active 05/30/2017 [facility] Betamethasone 0.0005 MG/MG Augmented Topical Ointment 1 appl, TOP, 0 Refill(s) Active 05/01/2017 [facility] carvedilol 3.125 mg oral tablet 3.125 mg = 1 tab, PO, Q12H, # 60 tab, 3 Refill(s), Pharmacy: [facility] [id number] Active 03/20/2017 [facility] carvedilol 12.5 MG Oral Tablet [Coreg] 12.5 mg = 1 tab, PO, BID, # 60 tab, 3 Refill(s), Pharmacy: [facility] [id number] Active 03/20/2017 [facility] Rosuvastatin calcium 5 MG Oral Tablet [Crestor] 5 mg = 1 tab, PO, Bedtime, # 30 tab, 3 Refill(s), Pharmacy: [facility] [id number] Active 03/20/2017 [facility] Hydralazine Hydrochloride 25 MG Oral Tablet 25 mg = 1 tab, PO, BID, # 60 tab, 3 Refill(s) Active 03/06/2017 [facility] 24 HR Isosorbide Mononitrate 30 MG Exten ded Release Tablet [Imdur] 30 mg = 1 tab, PO, QAM, # 30 tab, 3 Refi ll(s) Active 03/06/2017 [facility] carvedilol 12.5 MG Oral Tablet [Coreg] 12.5 mg = 1 tab, PO, BID, # 60 tab, 3 Refill(s) Active 03/06/2017 [facility] Furosemide 20 MG Oral Tablet 3 tabs, PO, Daily, # 90 tab, 3 Refill(s) Active 03/06/2017 [facility] potassium chloride 40 mEq, Anastasia ly, 0 Refill(s) Active 03/06/2017 [facility] metoprolol 100 mg oral tablet, extended release See Instructions, 1 tab PO morning .5 tab PO night, 0 Refill(s) Inactive 03/06/2017 [facility] Clotrimazole 10 mg, PO, 5X Day , 0 Refill(s) Active 03/06/2017 [facility] Triamcinolone Acetonide 1 MG/ML Topical Cream 1 appl, TOP, TID, PRN For rash, # 15 gm, 0 Refill(s) Active 03/06/2017 [facility] Metoclopramide 10 MG Oral Tablet 10 mg = 1 tab, PO, BID, # 56 tab, 0 Refill(s) Active 03/06/2017 [facility] furosemide 80 mg oral tablet 8 0 mg = 1 tab, PO, Daily, # 30 tab, 0 Refill(s) Inactive 03/06/2017 [facility] magnesium oxide 500 mg oral tablet 500 mg = 1 tab, PO, Daily, # 10 tab, 0 Refill(s) Active 03/06/2017 [facility] pravastatin 80 mg oral tablet 80 mg = 1 tab, PO, Bedtime, # 30 tab, 0 Refill(s) Active 03/06/2017 [facility] AMIODarone 100 mg oral tablet 200 mg = 2 tab, PO, Daily, # 60 tab, 0 Refill(s) Active 03/06/2017 [facility] dexlansoprazole 60 MG Enteric Coated Capsule [Dexilant ] 60 mg = 1 cap, PO, Daily, # 30 day, 0 Refill(s) Active 03/06/2017 [facility] clopidogrel 75 mg oral tablet 75 mg = 1 tab, PO, Daily, # 30 tab, 0 Refill(s) Active 03/06/2017 [facility] allopurinol 300 mg oral tablet 300 mg = 1 tab, PO, Daily, # 30 tab, 0 Refill(s) Active 03/06/2017 [facility] apixaban 2.5 MG Oral Tablet [Eliquis] 2.5 mg = 1 tab, PO, BID, 0 Refill(s) Active 03/06/2017 [facility] Allergies, Adverse Reactions, Alerts Substance Category Reaction Severity Reaction type Status Date Reported Comments Source No Known Medication Allergies Assertion Drug aller gy [facility] Immunizations No Data Provided for This Section Results Order Name Results Value Reference Range Date Interpretation Comments Source CARDIAC ENZYMES BNP 783 <=100 pg/mL 05/11/2020 [facility] CHEM PANEL Glucose Lvl 140 70 - 99 05/11/2020 [facility] CHEM PANEL BUN 29 7 - 22 05/11/2020 [facility] CHEM PANEL Creatinine Lvl 2.26 0.50 - 1.40 05/11/2020 [facility] CHEM PANEL CO2 32 24 - 32 05/11/2020 [facility] CHEM PANEL Calcium Lvl 9.0 8.5 - 10.5 05/11/2020 [facility] CHEM PANEL Total Protein 7.2 6.4 - 8.4 05/11/2020 [facility] CHEM PANEL Albumin Lvl 3.3 3.5 - 5.0 05/11/2020 [facility] CHEM PANEL ALT 39 0 - 65 05/11/2020 [facility] CHEM PANEL AST 36 0 - 37 05/11/2020 [facility] CHEM PANEL Alk Phos 91 39 - 136 05/11/2020 [facility] CHEM PANEL Bili Total 0.5 0.2 - 1.3 05/11/2020 [facility] CHEM PANEL B/C Ratio 13 6 - 25 05/11/2020 [facility] CHEM PANEL Globulin 3.9 2.7 - 4.2 05/11/2020 [facility] CHEM PANEL A/G Ratio 0.8 0.7 - 1.6 05/11/2020 [facility] CHEM PANEL eGFR 26 05/11/2020 Result Comment: [...] should be multiplied by the estimated BMI. [facility] CHEM PANEL Sodium Lvl 143 135 - 145 05/11/2020 [facility] CHEM PANEL Potassium Lvl 4.0 3.5 - 5.1 05/11/2020 [facility] CHEM PANEL Chloride Lvl 106 95 - 109 05/11/2020 [facility] CHEM PANEL AGAP 9.0 10.0 - 20.0 05/11/2020 [facility] HEMATOLOGY WBC 7.7 3.7 - 10.4 05/11/2020 [facility] HEMATOLOGY RBC 3.97 4.70 - 6.10 05/11/2020 [facility] HEMATOLOGY Hgb 13.5 14.0 - 18.0 05/11/2020 [facility] HEMATOLOGY Hct 40.2 42.0 - 54.0 05/11/2020 [facility] HEMATOLOGY MCV 101.4 80.0 - 94.0 05/11/2020 [facility] HEMATOLOGY MCH 34.0 27.0 - 31.0 05/11/2020 [facility] HEMATOLOGY MCHC 33.6 32.0 - 36.0 05/11/2020 [facility] HEMATOLOGY RDW 15.0 11.5 - 14.5 05/11/2020 [facility] HEMATOLOGY Platelet 149 133 - 450 05/11/2020 [facility] HEMATOLOGY MPV 8.4 7.4 - 10.4 05/11/2020 [facility] HEMATOLOGY Segs 71.9 45.0 - 75.0 05/11/2020 [facility] [facility] HEMATOLOGY Lymphocytes 13.5 20.0 - 40.0 05/11/2020 [facility] HEMATOLOGY Monocytes 8.1 2.0 - 12.0 05/11/2020 [facility] HEMATOLOGY Eosinophils 5.7 0.0 - 4.0 05/11/2020 [facility] HEMATOLOGY Basophils 0.8 0.0 - 1.0 05/11/2020 [facility] HEMATOLOGY Neutrophils # 5.5 1.5 - 8.1 05/11/2020 [facility] HEMATOLOGY Lymphocytes # 1.0 1.0 - 5.5 05/11/2020 [facility] HEMATOLOGY Monocytes # 0.6 0.0 - 0.8 05/11/2020 [facility] HEMATOLOGY Eosinophils # 0.4 0.0 - 0.5 05/11/2020 [facility] HEMATOLOGY Basophils # 0.1 0.0 - 0.2 05/11/2020 [facility] HEMATOLOGY Macrocyte 1+ *ABN* (05/11/20 11:15 AM) None Seen 05/11/2020 [facility] LIPIDS Trig 130 <=149 mg/dL 05/11/2020 [facility] LIPIDS Chol 158 <=199 mg/dL 05/11/2020 [facility] LIPIDS HDL 52 >=61 mg/dL 05/11/2020 [facility] LIPIDS CHD Risk 3.04 4.00 - 7.30 05/11/2020 [facility] LIPIDS LDL (Calculated) 80 <=99 mg/dL 05/11/2020 [facility] LIPIDS VLDL 26 05/11/2020 [facility] SPECIAL CHEMISTRY Hgb A1C 7.2 <=5.6 % 05/11/2020 [facility] CARDIAC ENZYMES BNP 754 <=100 pg/mL 04/14/2019 [facility] CHEM PANEL A/G Ratio 0.8 0.7 - 1.6 04/14/2019 [facility] CHEM PANEL B/C Ratio 11 6 - 25 04/14/2019 [facility] CHEM PANEL Globulin 3.9 2.7 - 4.2 04/14/2019 [facility] CHEM PANEL AGAP 10.0 10.0 - 20.0 04/14/2019 [facility] CHEM PANEL eGFR 29 04/14/2019 Result Comment: [...] should be multiplied by the estimated BMI. [facility] CHEM PANEL Potassium Lvl 4.0 3.5 - 5.1 04/14/2019 [facility] CHEM PANEL Chloride Lvl 106 95 - 109 04/14/2019 [facility] CHEM PANEL CO2 31 24 - 32 04/14/2019 [facility] CHEM PANEL Calcium Lvl 8.6 8.5 - 10.5 04/14/2019 [facility] CHEM PANEL Total Protein 7.1 6.4 - 8.4 04/14/2019 [facility] CHEM PANEL Alk Phos 91 39 - 136 04/14/2019 [facility] CHEM PANEL Bili Total 0.3 0.2 - 1.3 04/14/2019 [facility] CHEM PANEL ALT 27 0 - 65 04/14/2019 [facility] CHEM PANEL AST 26 0 - 37 04/14/2019 [facility] CHEM PANEL Albumin Lvl 3.2 3.5 - 5.0 04/14/2019 [facility] CHEM PANEL Sodium Lvl 143 135 - 145 04/14/2019 [facility] CHEM PANEL Creatinine Lvl 2.11 0.50 - 1.40 04/14/2019 [facility] CHEM PANEL Glucose Lvl 101 70 - 99 04/14/2019 [facility] CHEM PANEL BUN 23 7 - 22 04/14/2019 [facility] HEMATOLOGY Monocytes 10.7 2.0 - 12.0 04/14/2019 [facility] HEMATOLOGY Neutrophils # 3.7 1.5 - 8.1 04/14/2019 [facility] HEMATOLOGY Lymphocytes # 0.8 1.0 - 5.5 04/14/2019 [facility] HEMATOLOGY Eosinophils 4.9 0.0 - 4.0 04/14/2019 [facility] HEMATOLOGY Basophils 0.8 0.0 - 1.0 04/14/2019 [facility] HEMATOLOGY Lymphocytes 15.8 20.0 - 40.0 04/14/2019 [facility] HEMATOLOGY Eosinophils # 0.3 0.0 - 0.5 04/14/2019 [facility] HEMATOLOGY Monocytes # 0.6 0.0 - 0.8 04/14/2019 [facility] HEMATOLOGY Segs 67.8 45.0 - 75.0 04/14/2019 [facility] HEMATOLOGY MCH 33.2 27.0 - 31.0 04/14/2019 [facility] HEMATOLOGY MCV 99.0 80.0 - 94.0 04/14/2019 [facility] HEMATOLOGY Hct 35.5 42.0 - 54.0 04/14/2019 [facility] HEMATOLOGY RDW 16.1 11.5 - 14.5 04/14/2019 [facility] HEMATOLOGY MCHC 33.6 32.0 - 36.0 04/14/2019 [facility] HEMATOLOGY MPV 9.1 7.4 - 10.4 04/14/2019 [facility] HEMATOLOGY Platelet 123 133 - 450 04/14/2019 [facility] HEMATOLOGY Hgb 11.9 14.0 - 18.0 04/14/2019 [facility] HEMATOLOGY WBC 5.4 3.7 - 10.4 04/14/2019 [facility] HEMATOLOGY RBC 3.59 4.70 - 6.10 04/14/2019 [facility] CHEM PANEL Magnesium Lvl 2.3 1.8 - 2.4 02/28/2019 [facility] CHEM PANEL Phosphorus 3.1 2.5 - 4.5 02/28/2019 [facility] CHEM PANEL Total Protein 5.4 6.4 - 8.4 02/28/2019 [facility] CHEM PANEL AST 23 0 - 37 02/28/2019 [facility] CHEM PANEL Globulin 2.9 2.7 - 4.2 02/28/2019 [facility] CHEM PANEL A/G Ratio 0.9 0.7 - 1.6 02/28/2019 [facility] CHEM PANEL Alk Phos 60 39 - 136 02/28/2019 [facility] CHEM PANEL Bili Total 0.7 0.2 - 1.3 02/28/2019 [facility] CHEM PANEL ALT 5 0 - 65 02/28/2019 [facility] CHEM PANEL Albumin Lvl 2.5 3.5 - 5.0 02/28/2019 [facility] CHEM PANEL CO2 26 24 - 32 02/28/2019 [facility] CHEM PANEL eGFR 27 02/28/2019 Result Comment: [...] should be multiplied by the estimated BMI. [facility] CHEM PANEL Calcium Lvl 8.4 8.5 - 10.5 02/28/2019 [facility] CHEM PANEL Creatinine Lvl 2.20 0.50 - 1.40 02/28/2019 [facility] CHEM PANEL Sodium Lvl 143 135 - 145 02/28/2019 [facility] CHEM PANEL Potassium Lvl 3.7 3.5 - 5.1 02/28/2019 [facility] CHEM PANEL Chloride Lvl 108 95 - 109 02/28/2019 [facility] CHEM PANEL Glucose Lvl 141 70 - 99 02/28/2019 [facility] CHEM PANEL BUN 28 7 - 22 02/28/2019 [facility] CHEM PANEL AGAP 12.7 10.0 - 20.0 02/28/2019 [facility] CHEM PANEL B/C Ratio 13 6 - 25 02/28/2019 [facility] HEMATOLOGY MPV 8.6 7.4 - 10.4 02/28/2019 [facility] HEMATOLOGY Platelet 97 133 - 450 02/28/2019 [facility] HEMATOLOGY RDW 16.2 11.5 - 14.5 02/28/2019 [facility] HEMATOLOGY MCV 96.9 80.0 - 94.0 02/28/2019 [facility] HEMATOLOGY MCH 33.1 27.0 - 31.0 02/28/2019 [facility] HEMATOLOGY MCHC 34.2 32.0 - 36.0 02/28/2019 [facility] HEMATOLOGY RBC 3.06 4.70 - 6.10 02/28/2019 [facility] HEMATOLOGY Hgb 10.1 14.0 - 18.0 02/28/2019 [facility] HEMATOLOGY Hct 29.6 42.0 - 54.0 02/28/2019 [facility] HEMATOLOGY WBC 8.2 3.7 - 10.4 02/28/2019 [facility] HEMATOLOGY INR 1.16 0.85 - 1.17 02/28/2019 [facility] HEMATOLOGY PTT 34.5 22.9 - 35.8 02/28/2019 [facility] HEMATOLOGY D-Dimer 0.53 02/28/2019 [facility] HEMATOLOGY Fibrinogen Lvl 378 230 - 510 02/28/2019 [facility] HEMATOLOGY PT 14.6 12.0 - 14.7 02/28/2019 [facility] HEMATOLOGY Thrombin Time 16.3 15.0 - 21.2 02/28/2019 [facility] HEMATOLOGY Basophils 0.5 0.0 - 1.0 02/28/2019 [facility] HEMATOLOGY Segs 78.8 45.0 - 75.0 02/28/2019 [facility] HEMATOLOGY Lymphocytes 7.4 20.0 - 40.0 02/28/2019 [facility] HEMATOLOGY Monocytes 11.5 2.0 - 12.0 02/28/2019 [facility] HEMATOLOGY Eosinophils 1.8 0.0 - 4.0 02/28/2019 [facility] HEMATOLOGY Neutrophils # 6.4 1.5 - 8.1 02/28/2019 [facility] HEMATOLOGY Lymphocytes # 0.6 1.0 - 5.5 02/28/2019 [facility] HEMATOLOGY Monocytes # 0.9 0.0 - 0.8 02/28/2019 [facility] HEMATOLOGY Eosinophils # 0.1 0.0 - 0.5 02/28/2019 [facility] PARATHYROID PROFILE Ca Ion WB 1.11 1.05 - 1.25 02/28/2019 [facility] PARATHYROID PROFILE Ca Norm WB 1.12 1.05 - 1.25 02/28/2019 [facility] HEMATOLOGY Hgb 11.3 14.0 - 18.0 02/27/2019 [facility] CARDIAC ENZYMES BNP 867 <=100 pg/mL 02/27/2019 [facility] CHEM PANEL Phosphorus 3.3 2.5 - 4.5 02/27/2019 [facility] CHEM PANEL Albumin Lvl 2.5 3.5 - 5.0 02/27/2019 [facility] CHEM PANEL Total Protein 5.3 6.4 - 8.4 02/27/2019 [facility] CHEM PANEL ALT 9 0 - 65 02/27/2019 [facility] CHEM PANEL Bili Total 0.7 0.2 - 1.3 02/27/2019 [facility] CHEM PANEL Alk Phos 63 39 - 136 02/27/2019 [facility] CHEM PANEL AST 24 0 - 37 02/27/2019 [facility] CHEM PANEL eGFR 29 02/27/2019 Result Comment: [...] should be multiplied by the estimated BMI. [facility] CHEM PANEL A/G Ratio 0.9 0.7 - 1.6 02/27/2019 [facility] CHEM PANEL Globulin 2.8 2.7 - 4.2 02/27/2019 [facility] CHEM PANEL BUN 28 7 - 22 02/27/2019 [facility] CHEM PANEL Potassium Lvl 4.0 3.5 - 5.1 02/27/2019 [facility] CHEM PANEL Chloride Lvl 109 95 - 109 02/27/2019 [facility] CHEM PANEL CO2 23 24 - 32 02/27/2019 [facility] CHEM PANEL Creatinine Lvl 2.10 0.50 - 1.40 02/27/2019 [facility] CHEM PANEL Sodium Lvl 141 135 - 145 02/27/2019 [facility] CHEM PANEL Glucose Lvl 139 70 - 99 02/27/2019 [facility] CHEM PANEL Calcium Lvl 8.3 8.5 - 10.5 02/27/2019 [facility] CHEM PANEL AGAP 13.0 10.0 - 20.0 02/27/2019 [facility] CHEM PANEL B/C Ratio 13 6 - 25 02/27/2019 [facility] CHEM PANEL Magnesium Lvl 2.2 1.8 - 2.4 02/27/2019 [facility] CHEM PANEL Bili Direct 0.1 0.0 - 0.3 02/27/2019 [facility] HEMATOLOGY Thrombin Time 17.6 15.0 - 21.2 02/27/2019 [facility] HEMATOLOGY PTT 29.2 22.9 - 35.8 02/27/2019 [facility] HEMATOLOGY Fibrinogen Lvl 276 230 - 510 02/27/2019 [facility] HEMATOLOGY INR 1.29 0.85 - 1.17 02/27/2019 [facility] HEMATOLOGY D-Dimer 0.64 02/27/2019 [facility] HEMATOLOGY PT 15.8 12.0 - 14.7 02/27/2019 [facility] HEMATOLOGY MCHC 34.2 32.0 - 36.0 02/27/2019 [facility] HEMATOLOGY MCV 96.7 80.0 - 94.0 02/27/2019 [facility] HEMATOLOGY MCH 33.1 27.0 - 31.0 02/27/2019 [facility] HEMATOLOGY RDW 16.5 11.5 - 14.5 02/27/2019 [facility] HEMATOLOGY Platelet 114 133 - 450 02/27/2019 [facility] HEMATOLOGY MPV 8.5 7.4 - 10.4 02/27/2019 [facility] HEMATOLOGY Hct 30.9 42.0 - 54.0 02/27/2019 [facility] HEMATOLOGY Hgb 10.6 14.0 - 18.0 02/27/2019 [facility] HEMATOLOGY RBC 3.20 4.70 - 6.10 02/27/2019 [facility] HEMATOLOGY WBC 7.0 3.7 - 10.4 02/27/2019 [facility] HEMATOLOGY Lymphocytes # 0.5 1.0 - 5.5 02/27/2019 [facility] HEMATOLOGY Monocytes # 0.7 0.0 - 0.8 02/27/2019 [facility] HEMATOLOGY Lymphocytes 7.7 20.0 - 40.0 02/27/2019 [facility] HEMATOLOGY Basophils 0.5 0.0 - 1.0 02/27/2019 [facility] HEMATOLOGY Neutrophils # 5.7 1.5 - 8.1 02/27/2019 [facility] HEMATOLOGY Monocytes 9.5 2.0 - 12.0 02/27/2019 [facility] HEMATOLOGY Eosinophils 0.7 0.0 - 4.0 02/27/2019 [facility] HEMATOLOGY Segs 81.6 45.0 - 75.0 02/27/2019 [facility] PARATHYROID PROFILE Ca Norm WB 1.05 1.05 - 1.25 02/27/2019 [facility] PARATHYROID PROFILE Ca Ion WB 1.00 1.05 - 1.25 02/27/2019 [facility] CHEM PANEL Magnesium Lvl 1.7 1.8 - 2.4 02/26/2019 [facility] CHEM PANEL eGFR 39 02/26/2019 Result Comment: [...] should be multiplied by the estimated BMI. [facility] CHEM PANEL Glucose Lvl 121 70 - 99 02/26/2019 [facility] CHEM PANEL BUN 23 7 - 22 02/26/2019 [facility] CHEM PANEL Creatinine Lvl 1.65 0.50 - 1.40 02/26/2019 [facility] CHEM PANEL CO2 22 24 - 32 02/26/2019 [facility] CHEM PANEL Calcium Lvl 6.7 8.5 - 10.5 02/26/2019 Result Comment: Critical Result(s) jenna ayala to Geraldo Gaby at 02/26/2019 16:17 by FNS. Read back OK. [facility] CHEM PANEL AGAP 12.3 10.0 - 20.0 02/26/2019 [facility] CHEM PANEL Sodium Lvl 146 135 - 145 02/26/2019 [facility] CHEM PANEL Potassium Lvl 3.3 3.5 - 5.1 02/26/2019 [facility] CHEM PANEL Chloride Lvl 115 95 - 109 02/26/2019 [facility] CHEM PANEL Phosphorus 2.9 2.5 - 4.5 02/26/2019 [facility] HEMATOLOGY D-Dimer 0.77 02/26/2019 [facility] HEMATOLOGY PTT 28.1 22.9 - 35.8 02/26/2019 [facility] HEMATOLOGY PT 14.8 12.0 - 14.7 02/26/2019 [facility] HEMATOLOGY INR 1.18 0.85 - 1.17 02/26/2019 [facility] HEMATOLOGY Fibrinogen Lvl 290 230 - 510 02/26/2019 [facility] HEMATOLOGY Thrombin Time 19.2 15.0 - 21.2 02/26/2019 [facility] HEMATOLOGY MPV 8.6 7.4 - 10.4 02/26/2019 [facility] HEMATOLOGY Platelet 140 133 - 450 02/26/2019 [facility] HEMATOLOGY RDW 16.3 11.5 - 14.5 02/26/2019 [facility] HEMATOLOGY MCHC 34.2 32.0 - 36.0 02/26/2019 [facility] HEMATOLOGY MCH 33.2 27.0 - 31.0 02/26/2019 [facility] HEMATOLOGY MCV 96.9 80.0 - 94.0 02/26/2019 [facility] HEMATOLOGY Hct 34.6 42.0 - 54.0 02/26/2019 [facility] HEMATOLOGY RBC 3.57 4.70 - 6.10 02/26/2019 [facility] HEMATOLOGY WBC 10.3 3.7 - 10.4 02/26/2019 [facility] HEMATOLOGY Eosinophils # 0.1 0.0 - 0.5 02/26/2019 [facility] HEMATOLOGY Monocytes # 0.8 0.0 - 0.8 02/26/2019 [facility] HEMATOLOGY Lymphocytes # 0.7 1.0 - 5.5 02/26/2019 [facility] HEMATOLOGY Neutrophils # 8.6 1.5 - 8.1 02/26/2019 [facility] HEMATOLOGY Basophils 0.3 0.0 - 1.0 02/26/2019 [facility] HEMATOLOGY Eosinophils 0.7 0.0 - 4.0 02/26/2019 [facility] HEMATOLOGY Monocytes 8.1 2.0 - 12.0 02/26/2019 [facility] HEMATOLOGY Lymphocytes 7.1 20.0 - 40.0 02/26/2019 [facility] HEMATOLOGY Segs 83.8 45.0 - 75.0 02/26/2019 [facility] PARATHYROID PROFILE Ca Ion WB 1.09 1.05 - 1.25 02/26/2019 [facility] PARATHYROID PROFILE Ca Norm WB 1.11 1.05 - 1.25 02/26/2019 [facility] HEMATOLOGY Eosinophils # 0.1 0.0 - 0.5 02/26/2019 [facility] BLOOD BANK RESULTS RBC product Product available (02/26/19 1:06 PM) 02/26/2019 [facility] HEMATOLOGY Basophils # 0.1 0.0 - 0.2 02/26/2019 [facility] HEMATOLOGY POC Activated Clotting Ti me 137 02/26/2019 [facility] HEMATOLOGY POC Activated Clotting Ti me 278 02/26/2019 [facility] HEMATOLOGY POC Activated Clotting Ti me 288 02/26/2019 [facility] BLOOD BANK RESULTS FFP product Product available (02/26/19 7:31 AM) 02/26/2019 [facility] BLOOD BANK RESULTS RBC product Product available (02/26/19 7:31 AM) 02/26/2019 [facility] BLOOD BANK RESULTS Antibody Scrn Negative (02/26/19 6:06 AM) 02/26/2019 [facility] BLOOD BANK RESULTS ABO/Rh A POS 02/26/2019 [facility] HEMATOLOGY Basophils # 0.1 0.0 - 0.2 02/26/2019 [facility] CHEM PANEL eGFR 24 02/24/2019 Result Comment: [...] should be multiplied by the estimated BMI. [facility] CHEM PANEL CO2 28 24 - 32 02/24/2019 [facility] CHEM PANEL Calcium Lvl 8.6 8.5 - 10.5 02/24/2019 [facility] CHEM PANEL Sodium Lvl 142 135 - 145 02/24/2019 [facility] CHEM PANEL Potassium Lvl 4.1 3.5 - 5.1 02/24/2019 [facility] CHEM PANEL Chloride Lvl 109 95 - 109 02/24/2019 [facility] CHEM PANEL AGAP 9.1 10.0 - 20.0 02/24/2019 [facility] CHEM PANEL Creatinine Lvl 2.46 0.50 - 1.40 02/24/2019 [facility] CHEM PANEL BUN 30 7 - 22 02/24/2019 [facility] CHEM PANEL Glucose Lvl 126 70 - 99 02/24/2019 [facility] CHEM PANEL eGFR 29 02/19/2019 Result Comment: [...] should be multiplied by the estimated BMI. [facility] CHEM PANEL POC Creatinine 2.1 0.5 - 1.4 02/19/2019 [facility] CHEM PANEL A/G Ratio 0.8 0.7 - 1.6 02/04/2019 [facility] CHEM PANEL AGAP 6.8 10.0 - 20.0 02/04/2019 [facility] CHEM PANEL B/C Ratio 16 6 - 25 02/04/2019 [facility] CHEM PANEL Globulin 3.9 2.7 - 4.2 02/04/2019 [facility] CHEM PANEL Sodium Lvl 143 135 - 145 02/04/2019 [facility] CHEM PANEL BUN 36 7 - 22 02/04/2019 [facility] CHEM PANEL Chloride Lvl 108 95 - 109 02/04/2019 [facility] CHEM PANEL Potassium Lvl 3.8 3.5 - 5.1 02/04/2019 [facility] CHEM PANEL Glucose Lvl 128 70 - 99 02/04/2019 [facility] CHEM PANEL Calcium Lvl 8.7 8.5 - 10.5 02/04/2019 [facility] CHEM PANEL Total Protein 7.2 6.4 - 8.4 02/04/2019 [facility] CHEM PANEL CO2 32 24 - 32 02/04/2019 [facility] CHEM PANEL Alk Phos 86 39 - 136 02/04/2019 [facility] CHEM PANEL Bili Total 0.3 0.2 - 1.3 02/04/2019 [facility] CHEM PANEL Albumin Lvl 3.3 3.5 - 5.0 02/04/2019 [facility] CHEM PANEL ALT 45 0 - 65 02/04/2019 [facility] CHEM PANEL AST 29 0 - 37 02/04/2019 [facility] CHEM PANEL Creatinine Lvl 2.27 0.50 - 1.40 02/04/2019 [facility] CHEM PANEL eGFR 26 02/04/2019 Result Comment: [...] should be multiplied by the estimated BMI. [facility] HEMATOLOGY RBC 3.73 4.70 - 6.10 02/04/2019 [facility] HEMATOLOGY Hgb 12.3 14.0 - 18.0 02/04/2019 [facility] HEMATOLOGY Hct 36.9 42.0 - 54.0 02/04/2019 [facility] HEMATOLOGY RDW 15.5 11.5 - 14.5 02/04/2019 [facility] HEMATOLOGY MCV 98.9 80.0 - 94.0 02/04/2019 [facility] HEMATOLOGY MCH 33.0 27.0 - 31.0 02/04/2019 [facility] HEMATOLOGY Platelet 189 133 - 450 02/04/2019 [facility] HEMATOLOGY MCHC 33.3 32.0 - 36.0 02/04/2019 [facility] HEMATOLOGY WBC 6.3 3.7 - 10.4 02/04/2019 [facility] HEMATOLOGY MPV 8.8 7.4 - 10.4 02/04/2019 [facility] HEMATOLOGY Segs 67.2 45.0 - 75.0 02/04/2019 [facility] HEMATOLOGY Eosinophils 4.3 0.0 - 4.0 02/04/2019 [facility] HEMATOLOGY Lymphocytes 17.4 20.0 - 40.0 02/04/2019 [facility] HEMATOLOGY Monocytes 10.3 2.0 - 12.0 02/04/2019 [facility] HEMATOLOGY Neutrophils # 4.3 1.5 - 8.1 02/04/2019 [facility] HEMATOLOGY Lymphocytes # 1.1 1.0 - 5.5 02/04/2019 [facility] HEMATOLOGY Monocytes # 0.7 0.0 - 0.8 02/04/2019 [facility] HEMATOLOGY Basophils 0.8 0.0 - 1.0 02/04/2019 [facility] HEMATOLOGY Basophils # 0.1 0.0 - 0.2 02/04/2019 [facility] HEMATOLOGY Eosinophils # 0.3 0.0 - 0.5 02/04/2019 [facility] CHEM PANEL Magnesium Lvl 2.1 1.8 - 2.4 11/28/2018 [facility] CHEM PANEL Phosphorus 4.0 2.5 - 4.5 11/28/2018 [facility] CHEM PANEL eGFR 27 11/28/2018 Result Comment: [...] should be multiplied by the estimated BMI. [facility] CHEM PANEL Chloride Lvl 106 95 - 109 11/28/2018 [facility] CHEM PANEL Sodium Lvl 138 135 - 145 11/28/2018 [facility] CHEM PANEL Glucose Lvl 100 70 - 99 11/28/2018 [facility] CHEM PANEL Creatinine Lvl 2.20 0.50 - 1.40 11/28/2018 [facility] CHEM PANEL BUN 27 7 - 22 11/28/2018 [facility] CHEM PANEL Calcium Lvl 8.0 8.5 - 10.5 11/28/2018 [facility] CHEM PANEL Potassium Lvl 4.2 3.5 - 5.1 11/28/2018 [facility] CHEM PANEL CO2 26 24 - 32 11/28/2018 [facility] CHEM PANEL AGAP 10.2 10.0 - 20.0 11/28/2018 [facility] HEMATOLOGY WBC 7.6 3.7 - 10.4 11/28/2018 [facility] HEMATOLOGY RBC 3.23 4.70 - 6.10 11/28/2018 [facility] HEMATOLOGY Hgb 10.7 14.0 - 18.0 11/28/2018 [facility] HEMATOLOGY MCHC 33.8 32.0 - 36.0 11/28/2018 [facility] HEMATOLOGY RDW 14.5 11.5 - 14.5 11/28/2018 [facility] HEMATOLOGY Hct 31.7 42.0 - 54.0 11/28/2018 [facility] HEMATOLOGY MCV 98.2 80.0 - 94.0 11/28/2018 [facility] HEMATOLOGY MCH 33.2 27.0 - 31.0 11/28/2018 [facility] HEMATOLOGY Platelet 177 133 - 450 11/28/2018 [facility] HEMATOLOGY MPV 8.2 7.4 - 10.4 11/28/2018 [facility] HEMATOLOGY Eosinophils 0.7 0.0 - 4.0 11/28/2018 [facility] HEMATOLOGY Basophils 0.8 0.0 - 1.0 11/28/2018 [facility] HEMATOLOGY Lymphocytes # 0.9 1.0 - 5.5 11/28/2018 [facility] HEMATOLOGY Neutrophils # 6.0 1.5 - 8.1 11/28/2018 [facility] HEMATOLOGY Segs 78.8 45.0 - 75.0 11/28/2018 [facility] HEMATOLOGY Lymphocytes 11.3 20.0 - 40.0 11/28/2018 [facility] HEMATOLOGY Monocytes 8.4 2.0 - 12.0 11/28/2018 [facility] HEMATOLOGY Monocytes # 0.6 0.0 - 0.8 11/28/2018 [facility] HEMATOLOGY Eosinophils # 0.1 0.0 - 0.5 11/28/2018 [facility] HEMATOLOGY Basophils # 0.1 0.0 - 0.2 11/28/2018 [facility] HEMATOLOGY Monocytes # 0.4 0.0 - 0.8 11/28/2018 [facility] HEMATOLOGY Lymphocytes # 0.8 1.0 - 5.5 11/28/2018 [facility] HEMATOLOGY Basophils # 0.1 0.0 - 0.2 11/28/2018 [facility] HEMATOLOGY Eosinophils # 0.1 0.0 - 0.5 11/28/2018 [facility] HEMATOLOGY Segs 86.7 45.0 - 75.0 11/28/2018 [facility] HEMATOLOGY Neutrophils # 8.5 1.5 - 8.1 11/28/2018 [facility] HEMATOLOGY Basophils 0.5 0.0 - 1.0 11/28/2018 [facility] HEMATOLOGY Eosinophils 0.7 0.0 - 4.0 11/28/2018 [facility] HEMATOLOGY Monocytes 4.2 2.0 - 12.0 11/28/2018 [facility] HEMATOLOGY Lymphocytes 7.9 20.0 - 40.0 11/28/2018 [facility] HEMATOLOGY RDW 14.7 11.5 - 14.5 11/28/2018 [facility] HEMATOLOGY MCHC 33.7 32.0 - 36.0 11/28/2018 [facility] HEMATOLOGY MCH 33.3 27.0 - 31.0 11/28/2018 [facility] HEMATOLOGY Platelet 175 133 - 450 11/28/2018 [facility] HEMATOLOGY MPV 8.4 7.4 - 10.4 11/28/2018 [facility] HEMATOLOGY MCV 98.7 80.0 - 94.0 11/28/2018 [facility] HEMATOLOGY RBC 3.65 4.70 - 6.10 11/28/2018 [facility] HEMATOLOGY Hct 36.0 42.0 - 54.0 11/28/2018 [facility] HEMATOLOGY Hgb 12.2 14.0 - 18.0 11/28/2018 [facility] HEMATOLOGY WBC 9.8 3.7 - 10.4 11/28/2018 [facility] HEMATOLOGY Hgb 9.0 14.0 - 18.0 11/28/2018 [facility] HEMATOLOGY Hct 26.9 42.0 - 54.0 11/28/2018 [facility] HEMATOLOGY Platelet 162 133 - 450 11/28/2018 [facility] HEMATOLOGY POC Activated Clotting Ti me 179 11/28/2018 [facility] BLOOD BANK RESULTS Antibody Scrn Negative (11/27/18 12:02 PM) 11/27/2018 [facility] BLOOD BANK RESULTS ABO/Rh A POS 11/27/2018 [facility] CHEM PANEL Magnesium Lvl 2.1 1.8 - 2.4 11/27/2018 [facility] ELECTROLYTES AGAP 11.5 10.0 - 20.0 11/27/2018 [facility] ELECTROLYTES eGFR 25 11/27/2018 Result Comment: The [...] should be multiplied by the estimated BMI. [facility] ELECTROLYTES CO2 31 24 - 32 11/27/2018 [facility] ELECTROLYTES Calcium Lvl 9.0 8.5 - 10.5 11/27/2018 [facility] ELECTROLYTES Chloride Lvl 106 95 - 109 11/27/2018 [facility] ELECTROLYTES Sodium Lvl 144 135 - 145 11/27/2018 [facility] ELECTROLYTES Potassium Lvl 4.5 3.5 - 5.1 11/27/2018 [facility] ELECTROLYTES Creatinine Lvl 2.3 6 0.50 - 1.40 11/27/2018 [facility] ELECTROLYTES BUN 28 7 - 22 11/27/2018 [facility] ELECTROLYTES Glucose Lvl 120 70 - 99 11/27/2018 [facility] HEMATOLOGY Neutrophils # 4.6 1.5 - 8.1 11/27/2018 [facility] HEMATOLOGY Basophils 0.9 0.0 - 1.0 11/27/2018 [facility] HEMATOLOGY Eosinophils 2.4 0.0 - 4.0 11/27/2018 [facility] HEMATOLOGY Monocytes 8.1 2.0 - 12.0 11/27/2018 [facility] HEMATOLOGY Lymphocytes 14.3 20.0 - 40.0 11/27/2018 [facility] HEMATOLOGY Segs 74.3 45.0 - 75.0 11/27/2018 [facility] HEMATOLOGY Lymphocytes # 0.9 1.0 - 5.5 11/27/2018 [facility] HEMATOLOGY Basophils # 0.1 0.0 - 0.2 11/27/2018 [facility] HEMATOLOGY Eosinophils # 0.1 0.0 - 0.5 11/27/2018 [facility] HEMATOLOGY Monocytes # 0.5 0.0 - 0.8 11/27/2018 [facility] HEMATOLOGY PT 13.4 12.0 - 14.7 11/27/2018 [facility] HEMATOLOGY PTT 27.7 22.9 - 35.8 11/27/2018 [facility] HEMATOLOGY INR 1.04 0.85 - 1.17 11/27/2018 [facility] HEMATOLOGY MCH 33.4 27.0 - 31.0 11/27/2018 [facility] HEMATOLOGY MCV 97.9 80.0 - 94.0 11/27/2018 [facility] HEMATOLOGY MPV 8.5 7.4 - 10.4 11/27/2018 [facility] HEMATOLOGY MCHC 34.1 32.0 - 36.0 11/27/2018 [facility] HEMATOLOGY RDW 14.3 11.5 - 14.5 11/27/2018 [facility] HEMATOLOGY WBC 6.2 3.7 - 10.4 11/27/2018 [facility] HEMATOLOGY RBC 4.13 4.70 - 6.10 11/27/2018 [facility] Pathology Reports No Data Provided for This [...] atrium, right ventricle and coronary sinus. 02/28/2019 [facility] Chest 1 v for Placement DX EXA [...] atelectasis. 3. Decreased mild pulmonary edema. 02/27/2019 [facility] Chest 1view DX EXAM: XR CHEST 1 [...] may represent edema or multifocal infection. 02/27/2019 [facility] Chest 1view DX EXAM: XR CHEST 1 [...] may represent edema or multifocal infection. 02/26/2019 [facility] Heart/coronary art TAVR CTA EX AM: CTA HEART WITH CONTRAST DATE: 02/19/2019 INDICATION: - Aortic Stenosis. Aortic stenosis, TAVR candidate, CAD COMPARISON: None TECHNIQUE: Contrast imaging was performed on a Rachel Aquilion 640 slice MDCT scanner, utilizing a single breath-hold, space at 750 mA and 120 kV. A preliminary combine operator study was obtained. Retrospective ECG gating was performed, at a heart rate of 54-61 bpm. Images were reformatted at 0.5 mm intervals and sent to the [employer] workstation for interpretation of 3D anatomic reconstructions, [...] by incomplete raphe; asymmetricallycalcified Coplanar TAVR angle: BELGIAN 6, CAU 4 Aortic annulus: 29.3 x [...] and pelvis CTA report by Radiology. 02/19/2019 [facility] Chest/Abd/Pelvis TAVR CTA EXAM : VIR CT [...] l thickening indicates large airways disease. 02/19/2019 [facility] Consultation Notes No Data Provided for This Section Discharge Summaries No Data Provided for This Section History and Physicals No Data Provided for This Section Vital Signs Vital Sign Value Date Comments Source Systolic (mm Hg) 139 05/11/2020 [facility] Diastolic (mm Hg) 73 05/11/2020 [facility] Heart Rate 72 05/11/2020 [facility] Respitory Rate 18 05/11/2020 [facility] Temperature Oral (F) 97.0 F 05/11/2020 [facility] Height 178.31 cm 05/11/2020 [facility] Weight 97.727 05/11/2020 [facility] BMI Calculated 30.74 05/11/2020 [facility] Systolic (mm Hg) 159 06/17/2019 [facility] Diastolic (mm Hg) 91 06/17/2019 [facility] Heart Rate 65 06/17/2019 [facility] Respitory Rate 18 06/17/2019 [facility] Temperature Oral (F) 97.7 F 06/17/2019 [facility] Height 178.05 cm 06/17/2019 [facility] Weight 92.273 06/17/2019 [facility] BMI Calculated 29.11 06/17/2019 [facility] BMI Calculated 29.62 04/14/2019 [facility] Weight 93.636 04/14/2019 [facility] Height 177.8 cm 04/14/2019 [facility] Temperature Oral (F) 97.8 F 04/14/2019 [facility] Respitory Rate 18 04/14/2019 [facility] Heart Rate 84 04/14/2019 [facility] Systolic (mm Hg) 117 04/14/2019 [facility] Diastolic (mm Hg) 66 04/14/2019 [facility] BMI Calculated 29.49 03/17/2019 [facility] Weight 93.239 03/17/2019 [facility] Temperature Oral (F) 97.6 F 03/17/2019 [facility] Height 177.8 cm 03/17/2019 [facility] Systolic (mm Hg) 118 03/17/2019 [facility] Diastolic (mm Hg) 67 03/17/2019 [facility] Respitory Rate 18 03/17/2019 [facility] Heart Rate 62 03/17/2019 [facility] Respitory Rate 15 02/28/2019 [facility] Systolic (mm Hg) 123 02/28/2019 [facility] Diastolic (mm Hg) 58 02/28/2019 [facility] Systolic (mm Hg) 125 02/28/2019 [facility] Diastolic (mm Hg) 61 02/28/2019 [facility] Respitory Rate 27 02/28/2019 [facility] Respitory Rate 13 02/28/2019 [facility] Systolic (mm Hg) 131 02/28/2019 [facility] Diastolic (mm Hg) 59 02/28/2019 [facility] Temperature Oral (F) 96.3 F 02/28/2019 [facility] Temperature Oral (F) 96.6 F 02/28/2019 [facility] Temperature Oral (F) 96.8 F 02/28/2019 [facility] BMI Calculated 28.79 02/26/2019 [facility] Weight 93.636 02/26/2019 [facility] Height 180.34 cm 02/26/2019 [facility] Systolic (mm Hg) 165 02/19/2019 [facility] Diastolic (mm Hg) 69 02/19/2019 [facility] Heart Rate 50 02/19/2019 [facility] Systolic (mm Hg) 165 02/19/2019 [facility] Diastolic (mm Hg) 79 02/19/2019 [facility] Heart Rate 51 02/19/2019 [facility] BMI Calculated 28.65 02/19/2019 [facility] Weight 93.182 02/19/2019 [facility] Height 180.34 cm 02/19/2019 [facility] Height 177.8 cm 02/04/2019 [facility] BMI Calculated 30.05 02/04/2019 [facility] Weight 95 0 02/04/2019 [facility] Temperature Oral (F) 98.3 F 02/04/2019 [facility] Respitory Rate 18 02/04/2019 [facility] Heart Rate 61 02/04/2019 [facility] Systolic (mm Hg) 135 02/04/2019 [facility] Diastolic (mm Hg) 67 02/04/2019 [facility] BMI Calculated 28.37 01/21/2019 [facility] Weight 92.273 01/21/2019 [facility] Height 180.34 cm 01/21/2019 [facility] Systolic (mm Hg) 142 12/30/2018 [facility] Diastolic (mm Hg) 73 12/30/2018 [facility] Height 177.8 cm 12/30/2018 [facility] BMI Calculated 29.98 12/30/2018 [facility] Temperature Oral (F) 97.6 F 12/30/2018 [facility] Respitory Rate 16 12/30/2018 [facility] Heart Rate 56 12/30/2018 [facility] Weight 94.773 12/30/2018 [facility] Systolic (mm Hg) 143 11/28/2018 [facility] Diastolic (mm Hg) 69 11/28/2018 [facility] Temperature Oral (F) 97.8 F 11/28/2018 [facility] Systolic (mm Hg) 136 11/28/2018 [facility] Diastolic (mm Hg) 63 11/28/2018 [facility] Systolic (mm Hg) 109 11/28/2018 [facility] Diastolic (mm Hg) 56 11/28/2018 [facility] Temperature Oral (F) 97.8 F 11/27/2018 [facility] Height 180.34 cm 11/27/2018 [facility] Weight 95 0 11/27/2018 [facility] BMI Calculated 29.21 11/27/2018 [facility] Weight 93.21 11/12/2018 [facility] BMI Calculated 29.48 11/12/2018 [facility] Height 177.8 cm 11/12/2018 [facility] Heart Rate 60 11/12/2018 [facility] Respitory Rate 16 11/12/2018 [facility] Temperature Oral (F) 97.7 F 11/12/2018 [facility] Systolic (mm Hg) 131 11/12/2018 [facility] Diastolic (mm Hg) 65 11/12/2018 [facility] Height 175.26 cm 09/30/2018 [facility] BMI Calculated 31.37 09/30/2018 [facility] Weight 96.364 09/30/2018 [facility] Systolic (mm Hg) 138 09/30/2018 [facility] Diastolic (mm Hg) 72 09/30/2018 [facility] Temperature Oral (F) 98.2 F 09/30/2018 [facility] Respitory Rate 16 09/30/2018 [facility] Heart Rate 54 09/30/2018 [facility] Height 177.29 cm 06/03/2018 [facility] Weight 94.602 06/03/2018 [facility] BMI Calculated 30.1 06/03/2018 [facility] Heart Rate 51 06/03/2018 [facility] Temperature Oral (F) 97.6 F 06/03/2018 [facility] Respitory Rate 16 06/03/2018 [facility] Systolic (mm Hg) 143 06/03/2018 [facility] Diastolic (mm Hg) 68 06/03/2018 [facility] Height 182.88 cm 03/05/2018 [facility] Weight 95.653 03/05/2018 [facility] BMI Calculated 28.6 03/05/2018 [facility] Systolic (mm Hg) 131 03/05/2018 [facility] Diastolic (mm Hg) 67 03/05/2018 [facility] Temperature Oral (F) 97.6 F 03/05/2018 [facility] Respitory Rate 18 03/05/2018 [facility] Heart Rate 52 03/05/2018 [facility] BMI Calculated 29.99 12/24/2017 [facility] Weight 97.528 12/24/2017 [facility] Height 180.34 cm 12/24/2017 [facility] Systolic (mm Hg) 127 12/24/2017 [facility] Diastolic (mm Hg) 75 12/24/2017 [facility] Temperature Oral (F) 97.2 F 12/24/2017 [facility] Respitory Rate 16 12/24/2017 [facility] Heart Rate 67 12/24/2017 [facility] Height 180.34 cm 09/04/2017 [facility] BMI Calculated 30.47 09/04/2017 [facility] Weight 99.091 09/04/2017 [facility] BMI Calculated 30.75 09/04/2017 [facility] Weight 100 09/04/2017 [facility] Height 180.34 cm 09/04/2017 [facility] Weight 98.409 05/01/2017 [facility] BMI Calculated 29.42 05/01/2017 [facility] Height 182.88 cm 05/01/2017 [facility] Respitory Rate 16 05/01/2017 [facility] Temperature Oral (F) 97.4 F 05/01/2017 [facility] Heart Rate 62 05/01/2017 [facility] Systolic (mm Hg) 112 05/01/2017 [facility] Diastolic (mm Hg) 68 05/01/2017 [facility] BMI Calculated 29.7 03/20/2017 [facility] Weight 99.318 03/20/2017 [facility] Height 182.88 cm 03/20/2017 [facility] Systolic (mm Hg) 142 03/20/2017 [facility] Diastolic (mm Hg) 75 03/20/2017 [facility] Respitory Rate 16 03/20/2017 [facility] Temperature Oral (F) 97.8 F 03/20/2017 [facility] Heart Rate 54 03/20/2017 [facility] Weight 98.864 03/06/2017 [facility] BMI Calculated 29.56 03/06/2017 [facility] Systolic (mm Hg) 185 03/06/2017 [facility] Diastolic (mm Hg) 99 03/06/2017 [facility] Temperature Oral (F) 98 F 03/06/2017 [facility] Heart Rate 60 03/06/2017 [facility] Respitory Rate 18 03/06/2017 [facility] Height 182.88 cm 03/06/2017 [facility] Encounters Location Location Details Encounter Type Encounter Number Reason For Visit Attending Provider ADM Date DC Date Status Source [facility] Outpatient [id number] Biswajit David 03/06/2017 03/07/2017 [facility] Outpatient [id number] Biswajit David 03/20/2017 03/21/2017 [facility] Outpatient [id number] Biswajit David 05/01/2017 05/02/2017 [facility] Phone Message [id number] 05/30/20 17 06/01/2017 [facility] Outpatient [id number] Biswajit David 08/27/2017 08/28/2017 [facility] Outpatient [id number] Biswajit David 09/04/2017 09/05/2017 [facility] Phone Message [id number] 09/04/20 17 09/06/2017 [facility] Outpatient [id number] Biswajit David 12/24/2017 12/25/2017 [facility] Outpatient [id number] Biswajit David 03/05/2018 03/06/2018 [facility] Outpatient [id number] Biswajit David 06/03/2018 2018 [facility] Recurring [id number] Biswajit David 09/30/2018 10/30/2018 [facility] Outpatient [id number] Biswajit David 11/12/2018 11/13/2018 [facility] Bedded Outpatient [id number] Biswajit David 11/27/2018 11/28/2018 [facility] Outpatient [id number] Biswajit David 12/30/2018 12/31/2018 [facility] Outpatient [id number] Biswajit David 01/06/2019 01/07/2019 [facility] Outpatient [id number] Biswajit David 01/21/2019 01/22/2019 [facility] Recurring [id number] Biswajit David 02/04/2019 03/06/2019 [facility] Outpatient [id number] Biswajit David 02/19/2019 02/20/2019 [facility] Inpatient [id number] Biswajit David 02/26/2019 02/28/2019 [facility] Outpatient [id number] Biswajit David 03/17/2019 03/18/2019 [facility] Outpatient [id number] Biswajit David 04/14/2019 04/15/2019 [facility] Outpatient [id number] Biswajit David 06/17/2019 06/18/2019 [facility] Outpatient [id number] Biswajit David 05/11/2020 05/12/2020 [facility] Procedures Procedure Code Date Perfomer Comments Source PCI - Percutaneous coronary intervention [id number] 01/23/2016 [facility] [...] Renal Failure Risk: 13.639% Reoperation Risk: 11.727% -Singaporean: No Aortic Insufficiency: None Aortic Stenosis: Yes [...] Incidence: First Operation Left Main Disease: No [place]: Yes [place] When: > 21 days Mitral Insufficiency: Mild [...] Failure Risk: 23.865% Reoperation Risk: 16.097% 03/06/2019 [facility] Extracted from:Title: AHF Progress Note * Author: Madi Elaine MD Date: 02/28/19 Impression and Plan The patient was seen and examined by me with the resident/MORTGAGE CLOSER/PA and I agree with the History/Exam documented. [...] Discussed with attending, Dr. Tl Elaine, PGY4 [facility] Division of Cardiovascular Medicine Extracted from:Title: Heart [...] discussed with attending, Dr. Tl Elaine, PGY4 [facility] Division of Cardiovascular Medicine Cardiology Attending Attestation: I have seen and examined the patient with Dr. Elaine on 02/26/19. I have reviewed all the clinical information, lab investigation and imaging data. I agree with the above findings, assessment and plan. 02/28/2019 [facility] Plan of Care No Data Provided for This Section Social History Social History Date Source Social History TypeResponse Smoking Status Never smoker; Previous treatment: None; Ready to change: No; Concerns about tobacco use in household: No; Exposure to Tobacco Smoke None; Cigarette Smoking Last 365 Days No; Reg Smoking Cessation Counseling No entered on: 05/11/20 05/11/2020 [facility] Social History TypeResponse Smoking Status Never smoker; Ready to change: No; Concerns about tobacco use in household: No; Exposure to Tobacco Smoke None; Cigarette Smoking Last 365 Days No; Reg Smoking Cessation Counseling No 08/27/2017 [facility] Heart Failure Family History No Data Provided for This Section Advance Directives No Data Provided for This Section Functional Status No Data Provided for This Section
[2020-08-20 22:45] VITALS: BP 152/79
[2020-08-20 22:50] VITALS: BP 152/79
--- NOTE | 2020-08-20 22:50 | NUR ---
RECEIVED PATIENT FROM ER IN STABLE CONDITION, NO SIGNS OF DISTRESS NOTED. REDNESS AND SWELLING NOTED TO RIGHT LOWER EXTREMITY AND PATIENT VOICES NO PAIN AT THIS TIME. BED IS IN LOWEST POSITION, BOTH SIDE RAILS ARE UP, CALL LIGHT IS WITH IN EASY REACH, WILL CONTINUE TO MONITOR.
[2020-08-20 23:47] VITALS: BP 152/79
[2020-08-21] VITALS (7 sets, daily range): BP systolic 112–149; BP diastolic 49–77
[2020-08-21 06:29] LABS: BASOPHILS # (AUTO) 0.1 (0.0-0.1); BASOPHILS % 0.8 % (0.0-1.0); EOSINOPHILS # (AUTO) 0.3 (0.0-0.4); EOSINOPHILS % 4.7 % (0.0-6.0); HEMATOCRIT 33.1 % (38.2-49.6); LYMPHOCYTES % 15.6 % (18.0-39.1); MEAN CORPUSCULAR HGB CONC 33.2 g/dL (31-35); MEAN CORPUSCULAR VOLUME 99.4 fL (81-99); MONOCYTES # (AUTO) 0.8 (0.2-0.8); MONOCYTES % 12.5 % (4.4-11.3); NEUTROPHILS # (AUTO) 4.2 (2.1-6.9); NEUTROPHILS % 66.1 % (38.7-80.0); PLATELET COUNT 124 x10e3/uL (140-360); RED BLOOD COUNT 3.33 x10e6/uL (4.3-5.7); RED CELL DISTRIBUTION WIDTH 14.6 % (11.7-14.4)
[2020-08-21 06:46] LABS: ALBUMIN 2.9 g/dL (3.5-5.0); ANION GAP 10.6 mmol/L (8-16); CALCIUM 8.2 mg/dL (8.4-10.2); CREATININE, SERUM 2.04 mg/dL (0.72-1.25); POTASSIUM 3.6 mmol/L (3.5-5.1)
--- NOTE | 2020-08-21 07:05 | NUR ---
CD PT AT BED PT IS ALERT AND ORIENTED RESTING ON BED IV PATENT BED LOW AND LOCKED CALL LIGHT IN REACH
[2020-08-21] MEDS: INSULIN REGULAR, HUMAN 100 UNIT/1 ML 3ML VIAL SQ SCH ×4 (07:30→21:00)
[2020-08-21] MEDS ORDERED: SODIUM CHLORIDE 0.9% 50ML 50 ML ONE (07:50)
[2020-08-21] MEDS: PIPERACILLIN/TAZO 2.25 GM 50 ML IV SCH ×2 (08:00→22:15)
--- NOTE | 2020-08-21 11:15 | NUR ---
AC TO DR Ann YEH PT CAN TAKE MORNING MEDICATION HE CAN TAKE HIS OWN MEDS ,BUT THE PATIENT REFUSED EVENING MEDS HE SAID HE IS TAKING ALL MEDS ,HE TALKED ABOUT THE HOME MEDS ONE OF THE NURSE HE DID NOT TALK ANYTHING ABOUT ME ,
[2020-08-21] MEDS: APIXAB 2.5 MG TABLET PO SCH (16:53)
[2020-08-21] MEDS: METOCLOPRAMIDE HCL 10 MG TAB PO SCH (16:54)
[2020-08-21] MEDS: TRIAMCINOLONE ACET 0.1% CREAM 15 GM TUBE TOP SCH (16:54)
--- NOTE | 2020-08-21 18:49 | NUR ---
PT RESTING ON BED BED SIDE REPORT GIVEN TO ONCOMING NURSE
[2020-08-21] MEDS: VANCOMYCIN 1GM/NS 250 ML 250 ML IV SCH (20:55)
[2020-08-21] MEDS: SIMVASTATIN 40 MG TAB PO SCH (21:00)
[2020-08-21] MEDS: METOPROLOL SUCCINATE 50 MG TAB XL PO SCH (21:00)
[2020-08-21] MEDS: ALLOPURINOL 300 MG TAB PO SCH (21:00)
[2020-08-21] MEDS: PANTOPRAZOLE SOD 40 MG TABEC PO SCH (21:00)
--- NOTE | 2020-08-21 21:00 | NUR ---
PATIENT RESTING COMFORTABLY IN BED, NO SIGNS OF DISTRESS NOTED. IV ANTIBIOTICS ARE RUNNING AT ORDERED RATE AND PATIENT VOICES NO PAIN AT THIS TIME. RIGHT LEG IS ELEVATED. BED IN LOW POSITION, BOTH SIDE RAILS ARE UP, CALL LIGHT WITHIN REACH, WILL CONTINUE TO MONITOR.
[2020-08-22] VITALS (8 sets, daily range): BP systolic 114–144; BP diastolic 52–73
[2020-08-22 06:52] LABS: BASOPHILS % 0.6 % (0.0-1.0); EOSINOPHILS # (AUTO) 0.3 (0.0-0.4); EOSINOPHILS % 4.4 % (0.0-6.0); HEMOGLOBIN 10.7 g/dL (14.0-18.0); LYMPHOCYTES # (AUTO) 0.9 (1.0-3.2); MEAN CORPUSCULAR HEMOGLOBIN 33.4 pg (28-32); MEAN CORPUSCULAR HGB CONC 33.4 g/dL (31-35); MONOCYTES # (AUTO) 0.8 (0.2-0.8); MONOCYTES % 11.6 % (4.4-11.3); NEUTROPHILS # (AUTO) 4.6 (2.1-6.9); NEUTROPHILS % 69.8 % (38.7-80.0); PLATELET COUNT 128 x10e3/uL (140-360); RED CELL DISTRIBUTION WIDTH 14.6 % (11.7-14.4)
[2020-08-22 07:07] LABS: ANION GAP 13.3 mmol/L (8-16); CALCIUM 8.1 mg/dL (8.4-10.2); CREATININE, SERUM 1.96 mg/dL (0.72-1.25); POTASSIUM 3.3 mmol/L (3.5-5.1)
[2020-08-22] MEDS: INSULIN REGULAR, HUMAN 100 UNIT/1 ML 3ML VIAL SQ SCH ×4 (07:30→20:43)
[2020-08-22] MEDS ORDERED: POTASSIUM CHLORIDE 20 MEQ TAB CR PO STA (08:08)
[2020-08-22] MEDS: METOPROLOL SUCCINATE 50 MG TAB XL PO SCH ×2 (09:00→20:41)
[2020-08-22] MEDS: APIXAB 2.5 MG TABLET PO SCH ×2 (09:00→16:40)
[2020-08-22] MEDS: AMIODARONE HCL 200 MG TAB PO SCH (09:00)
[2020-08-22] MEDS: CLOPIDOGREL BISULFATE 75 MG TAB PO SCH (09:00)
[2020-08-22] MEDS: METOCLOPRAMIDE HCL 10 MG TAB PO SCH ×2 (09:00→16:40)
[2020-08-22] MEDS: FUROSEMIDE 40 MG TAB PO SCH (09:00)
[2020-08-22] MEDS: POTASSIUM CHLORIDE 10MEQ EA PO SCH (09:00)
[2020-08-22] MEDS: PIPERACILLIN/TAZO 2.25 GM 50 ML IV SCH ×2 (09:25→22:30)
[2020-08-22] MEDS: TRIAMCINOLONE ACET 0.1% CREAM 15 GM TUBE TOP SCH ×2 (11:41→16:41)
--- NOTE | 2020-08-22 19:28 | NUR ---
Bedside shift report given to hourly shift manager. Denies pain at this time while right leg is at rest and elevated. Call light in reach.
[2020-08-22] MEDS: VANCOMYCIN 1GM/NS 250 ML 250 ML IV SCH (20:35)
[2020-08-22] MEDS: PANTOPRAZOLE SOD 40 MG TABEC PO SCH (20:41)
[2020-08-22] MEDS: ALLOPURINOL 300 MG TAB PO SCH (20:42)
[2020-08-22] MEDS: SIMVASTATIN 40 MG TAB PO SCH (20:42)
[2020-08-23] VITALS (7 sets, daily range): BP systolic 118–135; BP diastolic 52–70
[2020-08-23 05:34] LABS: BASOPHILS % 0.4 % (0.0-1.0); EOSINOPHILS # (AUTO) 0.4 (0.0-0.4); EOSINOPHILS % 5.6 % (0.0-6.0); HEMOGLOBIN 11.3 g/dL (14.0-18.0); LYMPHOCYTES # (AUTO) 0.8 (1.0-3.2); LYMPHOCYTES % 12.2 % (18.0-39.1); MEAN CORPUSCULAR HEMOGLOBIN 33.2 pg (28-32); MEAN CORPUSCULAR HGB CONC 33.2 g/dL (31-35); MONOCYTES # (AUTO) 0.7 (0.2-0.8); MONOCYTES % 10.8 % (4.4-11.3); NEUTROPHILS # (AUTO) 4.8 (2.1-6.9); NEUTROPHILS % 70.9 % (38.7-80.0); PLATELET COUNT 141 x10e3/uL (140-360); RED CELL DISTRIBUTION WIDTH 14.2 % (11.7-14.4)
[2020-08-23 05:56] LABS: ALBUMIN 2.7 g/dL (3.5-5.0); ALBUMIN/GLOBULIN RATIO 0.9 (0.8-2.0); ANION GAP 11.4 mmol/L (8-16); CALCIUM 7.9 mg/dL (8.4-10.2); CREATININE, SERUM 1.93 mg/dL (0.72-1.25); POTASSIUM 3.4 mmol/L (3.5-5.1)
[2020-08-23] MEDS: INSULIN REGULAR, HUMAN 100 UNIT/1 ML 3ML VIAL SQ SCH ×4 (07:30→21:00)
[2020-08-23] MEDS: APIXAB 2.5 MG TABLET PO SCH ×2 (09:00→17:00)
[2020-08-23] MEDS: FUROSEMIDE 40 MG TAB PO SCH (09:00)
[2020-08-23] MEDS: POTASSIUM CHLORIDE 10MEQ EA PO SCH (09:00)
[2020-08-23] MEDS: AMIODARONE HCL 200 MG TAB PO SCH (09:00)
[2020-08-23] MEDS: METOCLOPRAMIDE HCL 10 MG TAB PO SCH ×2 (09:00→17:00)
[2020-08-23] MEDS: METOPROLOL SUCCINATE 50 MG TAB XL PO SCH ×2 (09:00→21:00)
[2020-08-23] MEDS: CLOPIDOGREL BISULFATE 75 MG TAB PO SCH (09:00)
[2020-08-23] MEDS ORDERED: POTASSIUM CHLORIDE 10MEQ EA PO ONE (09:30)
--- NOTE | 2020-08-23 10:25 | Progress Note ---
DATE: 08/23/2020 CHIEF COMPLAINT/HISTORY OF PRESENT ILLNESS: This is an 80-year-old white man, whose primary treating diagnosis is right ankle cellulitis. The patient also has underlying history of congestive heart failure, atrial fibrillation, and stage 4 chronic kidney disease. Today's blood work revealed a white blood cell count of 6700 with 70% segmented neutrophils. The patient's hemoglobin is 11.3 g/dL. The patient's BUN and creatinine are 29 and 1.93 respectively. The patient's potassium today is 3.4. REVIEW OF SYSTEMS: As per HPI. PHYSICAL EXAMINATION: GENERAL: He is awake, alert. He is oriented. He has no distress. VITAL SIGNS: Height 6 feet 0 inches, weight is 222 pounds. BMI 30. Blood pressure is 128/68, pulse 60, respiratory rate 18, temperature 98.3, and oxygen saturation 94% on room air. INTEGUMENT: Skin is warm dry. No pallor, jaundice, or diaphoresis. HEENT: Anicteric sclerae. Moist mucous membranes. NECK: Supple. CARDIOVASCULAR: Distant heart sounds. Regular rate and rhythm with a systolic ejection murmur 2/6 in intensity and S3 gallop. LUNGS: No rales. No rhonchi. No wheezes. ABDOMEN: Benign. EXTREMITIES: The patient has erythema, swelling, and warmth in the medial aspect of his distal right lower leg that is most pronounced in the right medial malleolar area. NEUROLOGIC: Intact. DIAGNOSES: 1. Right foot/lower leg cellulitis. 2. Chronic systolic/diastolic congestive heart failure. 3. Atrial fibrillation. 4. Coronary artery disease. 5. Stage 4 chronic kidney disease. PLAN: 1. Replete potassium level. 2. Mobilize with physical therapy. 3. Pain control. 4. Continue oral Eliquis for the patient's atrial fibrillation. 5. Continue congestive heart failure medical management with metoprolol succinate and furosemide. 6. Discharge planning for tomorrow, Monday August 24, 2020. I spent 30 minutes in the care of the patient. MD MIKE Moreno/CRYSTAL /[id number] MTDD
[2020-08-23] MEDS: TRIAMCINOLONE ACET 0.1% CREAM 15 GM TUBE TOP SCH ×2 (10:34→17:33)
[2020-08-23] MEDS: PIPERACILLIN/TAZO 2.25 GM 50 ML IV SCH ×2 (10:37→17:33)
--- NOTE | 2020-08-23 10:41 | Diagnostic Imaging Report ---
EXAMINATION: CHEST SINGLE (PORTABLE) INDICATION: CHF COMPARISON: Chest radiograph 11/06/2018 FINDINGS: LINES/TUBES:Left chest pacer. Valve prosthesis. LUNGS:The lungs are well-inflated. No focal consolidation or pulmonary edema. PLEURA:No pleural effusion or pneumothorax. MEDIASTINUM:The cardiomediastinal silhouette appears normal in size and shape. BONES/SOFT TISSUES:No acute osseous injury. ABDOMEN:No free air under the diaphragm. IMPRESSION: No focal pneumonia or pulmonary edema. Signed by: Eleanor Gottlieb MD on 08/23/2020 10:38 AM
[2020-08-23] MEDS ORDERED: ONDANSETRON HCL 4 MG ORAL DISINTEGRATING TAB PO PRN (12:00)
[2020-08-23] MEDS: VANCOMYCIN 1GM/NS 250 ML 250 ML IV SCH (20:00)
[2020-08-23] MEDS: SIMVASTATIN 40 MG TAB PO SCH (21:00)
[2020-08-23] MEDS: PANTOPRAZOLE SOD 40 MG TABEC PO SCH (21:00)
[2020-08-23] MEDS: ALLOPURINOL 300 MG TAB PO SCH (21:00)
[2020-08-24] VITALS: BP 126/62
[2020-08-24 04:00] VITALS: BP 123/66
[2020-08-24 05:02] LABS: BASOPHILS % 0.6 % (0.0-1.0); EOSINOPHILS # (AUTO) 0.4 (0.0-0.4); EOSINOPHILS % 6.3 % (0.0-6.0); HEMATOCRIT 33.7 % (38.2-49.6); HEMOGLOBIN 11.2 g/dL (14.0-18.0); LYMPHOCYTES # (AUTO) 0.9 (1.0-3.2); LYMPHOCYTES % 13.6 % (18.0-39.1); MEAN CORPUSCULAR HEMOGLOBIN 33.1 pg (28-32); MEAN CORPUSCULAR HGB CONC 33.2 g/dL (31-35); MEAN CORPUSCULAR VOLUME 99.7 fL (81-99); MONOCYTES # (AUTO) 0.8 (0.2-0.8); MONOCYTES % 12.2 % (4.4-11.3); NEUTROPHILS # (AUTO) 4.2 (2.1-6.9); PLATELET COUNT 138 x10e3/uL (140-360); RED BLOOD COUNT 3.38 x10e6/uL (4.3-5.7); RED CELL DISTRIBUTION WIDTH 14.3 % (11.7-14.4)
[2020-08-24 05:24] LABS: ALBUMIN 2.7 g/dL (3.5-5.0); ALBUMIN/GLOBULIN RATIO 0.8 (0.8-2.0); ANION GAP 14.5 mmol/L (8-16); CALCIUM 8.2 mg/dL (8.4-10.2); CREATININE, SERUM 2.15 mg/dL (0.72-1.25); POTASSIUM 3.5 mmol/L (3.5-5.1)
[2020-08-24] MEDS: PIPERACILLIN/TAZO 2.25 GM 50 ML IV SCH ×3 (05:56→12:37)
[2020-08-24] MEDS: INSULIN REGULAR, HUMAN 100 UNIT/1 ML 3ML VIAL SQ SCH ×2 (07:30→11:30)
[2020-08-24 08:00] VITALS: BP 129/57
[2020-08-24] MEDS ORDERED: POTASSIUM CHLORIDE 10MEQ EA PO NR (08:15)
--- NOTE | 2020-08-24 08:44 | Progress Note ---
DATE: 08/24/2020 CHIEF COMPLAINT/HISTORY OF PRESENT ILLNESS: This is an 80-year-old white man whose primary treating diagnosis is right foot/lower leg cellulitis. The patient also has underlying history of chronic systolic/diastolic congestive heart failure as well as atrial fibrillation. The patient states that he is experiencing less pain in his right ankle area today. The patient denies any fever or chills. The patient's white blood cell count today is 6300 with 67% segmented neutrophils. Hemoglobin is 11.2 g/dL. The patient's BUN and creatinine is 31 and 2.15 respectively. The patient's potassium is 3.5. REVIEW OF SYSTEMS: As per HPI. PHYSICAL EXAMINATION: GENERAL: He is awake, alert. He is oriented. He is in no distress. VITAL SIGNS: Blood pressure is 123/66, pulse 56, respiratory rate 22, oxygen saturation 97% on room air, temperature 98.0. Height 6 feet 0 inches, weight 222 pounds, BMI 30. INTEGUMENT: Skin is warm dry. No pallor, jaundice or diaphoresis. HEENT: Anterior sclerae. Moist mucous membranes. NECK: Supple. No evidence of jugular venous distention. CARDIOVASCULAR: Distant heart sounds. Regular rate and rhythm with systolic ejection murmur 2/6 in intensity and S3 gallop. LUNGS: No rales. No rhonchi. No wheezes. ABDOMEN: Benign. EXTREMITIES: The patient has erythema, swelling, and warmth in the medial aspect of the distal right lower leg that is most pronounced in the right medial malleolar area. The area of erythema seems to be receding. NEUROLOGIC: Intact. DIAGNOSES: 1. Right foot/lower leg cellulitis. 2. Chronic systolic/diastolic congestive heart failure. 3. Atrial fibrillation. 4. Coronary artery disease. 5. Stage 4 chronic kidney disease. PLAN: 1. Replete potassium level again today. 2. Mobilize physical therapy. 3. Pain control. 4. Continue oral Eliquis for the patient's atrial fibrillation. 5. Continue oral Brilinta for the patient's coronary artery disease. 6. Continue congestive heart failure medical management with metoprolol succinate and furosemide. 7. Continue intravenous antibiotics for the patient's cellulitis. 8. Discharge planning for later today likely. I spent 35 minutes in the care of this patient. MD MIKE Moreno/CRYSTAL /[id number] MTDBrady
[2020-08-24] MEDS: FUROSEMIDE 40 MG TAB PO SCH (08:57)
[2020-08-24] MEDS: TRIAMCINOLONE ACET 0.1% CREAM 15 GM TUBE TOP SCH (08:57)
[2020-08-24] MEDS: AMIODARONE HCL 200 MG TAB PO SCH (08:57)
[2020-08-24] MEDS: METOCLOPRAMIDE HCL 10 MG TAB PO SCH (08:57)
[2020-08-24] MEDS: POTASSIUM CHLORIDE 10MEQ EA PO SCH (08:57)
[2020-08-24] MEDS: CLOPIDOGREL BISULFATE 75 MG TAB PO SCH (08:57)
[2020-08-24] MEDS: METOPROLOL SUCCINATE 50 MG TAB XL PO SCH (08:57)
[2020-08-24] MEDS: APIXAB 2.5 MG TABLET PO SCH (08:57)
[2020-08-24] MEDS ORDERED: AUGMENTIN 875-1 EACH PO (09:49)
[2020-08-24 09:59] VITALS: BP 129/57
--- NOTE | 2020-08-24 10:38 | NUR ---
IMM LETTER EXPLAINED TO PT. PT VERBALIZED UNDERSTANDING. IMM LETTER SIGNED. COPY TO PT AND COPY TO CHART.
--- NOTE | 2020-08-24 13:49 | NUR ---
patient discharged. Iv removed. patient's taught how to wrap leg. patient aware of prescription called into [facility] and to cigar packer and picker. patient and denied any questions regarding follow up instructions or prescription. patient wheeled off unit in stable condition with all belongings.
--- NOTE | 2020-08-25 10:25 | NUR ---
Dictated DC summary: [id number]
--- NOTE | 2020-08-25 11:25 | Discharge Summary ---
ADMIT DIAGNOSES: 1. Right foot/lower leg cellulitis. 2. Chronic systolic/diastolic congestive heart failure. 3. Atrial fibrillation. 4. Coronary artery disease. 5. Stage 4 chronic kidney disease. DISCHARGE DIAGNOSES: 1. Right foot/lower leg cellulitis, resolving. 2. Chronic systolic/diastolic congestive heart failure. 3. Atrial fibrillation. 4. Coronary artery disease. 5. Stage 4 chronic kidney disease. HOSPITAL COURSE: This is an 80-year-old white man, who was initially admitted to [facility] with diagnosis of right foot/lower leg cellulitis. The patient improved clinically with intravenous vancomycin and Zosyn. The patient's brief hospitalization was unremarkable. The patient did receive medications to treat his congestive heart failure during this hospitalization, namely oral furosemide and metoprolol succinate. The patient also was continued on Eliquis 2.5 mg twice a day for his atrial fibrillation. The patient had blood cultures drawn during this hospitalization, which did not reveal any bacterial growth during hospitalization. CONDITION ON DISCHARGE: Stable. DISCHARGE MEDICATIONS: 1. Simvastatin 80 mg at bedtime. 2. Metoprolol succinate 100 mg in the morning, 50 mg at night. 3. Pantoprazole 40 mg daily. 4. Allopurinol 300 mg daily. 5. Eliquis 2.5 mg b.i.d. 6. Potassium chloride 40 mEq daily. 7. Metoclopramide 10 mg b.i.d. 8. Furosemide 80 mg daily. 9. Brilinta 60 mg b.i.d. 10. Amiodarone 100 mg daily. 11. Augmentin 875 mg b.i.d. for 7 days. FOLLOWUP INSTRUCTIONS: The patient was instructed to follow up with his primary care physician, namely Dr. Ulysses Masterson within the next 7 to 10 days. MD MIKE Moreno/CRYSTAL /[id number]
== END 2020-08-24 13:46 | disposition home or self-care (01) | DRG 603 ==
LOC: ER 17:45 → ERHOLD 21:26 → MED/SURG2 23:03
PROVIDERS: ADMIT Internal Medicine; ATTEND Internal Medicine
DX: L03.115 Cellulitis of right lower limb (principal); I13.0 Hypertensive heart and chronic kidney disease with heart failure and stage 1 through stage 4 chronic kidney disease, or unspecified chronic kidney disease; I50.42 Chronic combined systolic (congestive) and diastolic (congestive) heart failure; N18.4 Chronic kidney disease, stage 4 (severe); I48.91 Unspecified atrial fibrillation; Z79.01 Long term (current) use of anticoagulants; I25.10 Atherosclerotic heart disease of native coronary artery without angina pectoris; Z20.828 Contact with and (suspected) exposure to other viral communicable diseases
CPT/HCPCS: 36415; 71045; 80048; 80053; 80202; 82948; 83880; 85025; 85610; 85730; 87040; 96372; 99284; J2543; J3370; U0002

== ENCOUNTER 2021-02-17 12:59 | Emergency (ER) | payer OTHER, MEDICARE ==
[~2021-02-17] VITALS: Ht 188 cm; Wt 81.6 kg
[~2021-02-17 12:59] MED LIST changes: +AUGMENTIN 875-1 EACH PO
[2021-02-17] MEDS ORDERED: MORPHINE SULFATE INJ 4 MG/ML INJ 1ML IV ONE (13:11)
[2021-02-17 13:55] LABS: BASOPHILS # (AUTO) 0.1 (0.0-0.1); BASOPHILS % 0.8 % (0.0-1.0); EOSINOPHILS # (AUTO) 0.7 (0.0-0.4); EOSINOPHILS % 8.6 % (0.0-6.0); HEMATOCRIT 35.8 % (38.2-49.6); HEMOGLOBIN 12.1 g/dL (14.0-18.0); LYMPHOCYTES # (AUTO) 0.9 (1.0-3.2); LYMPHOCYTES % 10.7 % (18.0-39.1); MEAN CORPUSCULAR HGB CONC 33.8 g/dL (31-35); MEAN CORPUSCULAR VOLUME 100.6 fL (81-99); MONOCYTES # (AUTO) 0.6 (0.2-0.8); MONOCYTES % 7.9 % (4.4-11.3); NEUTROPHILS # (AUTO) 5.7 (2.1-6.9); NEUTROPHILS % 71.5 % (38.7-80.0); PLATELET COUNT 124 x10e3/uL (140-360); RED BLOOD COUNT 3.56 x10e6/uL (4.3-5.7); RED CELL DISTRIBUTION WIDTH 14.6 % (11.7-14.4)
[2021-02-17 14:12] LABS: ALBUMIN 3.3 g/dL (3.5-5.0); ALBUMIN/GLOBULIN RATIO 1.1 (0.8-2.0); ANION GAP 17.3 mmol/L (8-16); CALCIUM 8.3 mg/dL (8.4-10.2); CREATININE, SERUM 2.21 mg/dL (0.72-1.25); POTASSIUM 4.3 mmol/L (3.5-5.1)
[2021-02-17] MEDS ORDERED: ONDANSETRON ODT4 MG PO (15:01)
[2021-02-17] MEDS ORDERED: TYLENOL # 31 EA PO (15:01)
== END 2021-02-17 16:06 | disposition home or self-care (01) ==
LOC: ER 13:20
DX: R07.89 Other chest pain (principal); S50.12XA Contusion of left forearm, initial encounter; W01.0XXA Fall on same level from slipping, tripping and stumbling without subsequent striking against object, initial encounter; Y93.H2 Activity, gardening and landscaping; Y92.007 Garden or yard of unspecified non-institutional (private) residence as the place of occurrence of the external cause; I10 Essential (primary) hypertension; E11.65 Type 2 diabetes mellitus with hyperglycemia; E78.5 Hyperlipidemia, unspecified; I48.91 Unspecified atrial fibrillation; K21.9 Gastro-esophageal reflux disease without esophagitis; Z95.810 Presence of automatic (implantable) cardiac defibrillator; Z95.5 Presence of coronary angioplasty implant and graft; E78.00 Pure hypercholesterolemia, unspecified
CPT/HCPCS: 36415; 71250; 73090; 73130; 80053; 85025; 99284; J2270

== ENCOUNTER → 2021-07-12 | Outpatient (CLI) | payer MEDICARE, OTHER ==
[~2021-07-12] MED LIST changes: +ONDANSETRON ODT4 MG PO; +TYLENOL # 31 EA PO
== END ==
LOC: RAD 12:45
PROVIDERS: ATTEND Internal Medicine
DX: J15.9 Unspecified bacterial pneumonia (principal)
CPT/HCPCS: 71046

== ENCOUNTER 2021-09-18 06:20 | Inpatient (IN) | payer MEDICARE, OTHER ==
[~2021-09-18] VITALS: Ht 182.9 cm; Wt 81.6 kg
[2021-09-18 06:37] LABS: BASOPHILS # (AUTO) 0.1 (0.0-0.1); BASOPHILS % 0.7 % (0.0-1.0); EOSINOPHILS # (AUTO) 0.7 (0.0-0.4); EOSINOPHILS % 7.2 % (0.0-6.0); HEMATOCRIT 40.2 % (38.2-49.6); HEMOGLOBIN 12.9 g/dL (14.0-18.0); LYMPHOCYTES # (AUTO) 0.7 (1.0-3.2); LYMPHOCYTES % 7.9 % (18.0-39.1); MEAN CORPUSCULAR HEMOGLOBIN 33.1 pg (28-32); MEAN CORPUSCULAR HGB CONC 32.1 g/dL (31-35); MEAN CORPUSCULAR VOLUME 103.1 fL (81-99); MONOCYTES # (AUTO) 0.9 (0.2-0.8); MONOCYTES % 10.2 % (4.4-11.3); NEUTROPHILS # (AUTO) 6.8 (2.1-6.9); NEUTROPHILS % 73.6 % (38.7-80.0); PLATELET COUNT 148 x10e3/uL (140-360); RED CELL DISTRIBUTION WIDTH 13.9 % (11.7-14.4)
[2021-09-18 06:52] LABS: ALBUMIN 3.2 g/dL (3.5-5.0); ANION GAP 16.8 mmol/L (8-16); CALCIUM 8.9 mg/dL (8.4-10.2); CREATININE, SERUM 2.24 mg/dL (0.72-1.25); POTASSIUM 3.8 mmol/L (3.5-5.1)
[2021-09-18] MEDS ORDERED: FUROSEMIDE INJ 10 MG/ML 4 ML VIAL IV ONE (07:30)
[2021-09-18] MEDS ORDERED: ONDANSETRON HCL INJ 2MG/ML 2ML 2 MG/ML VIAL IV STA (07:33)
[2021-09-18] MEDS ORDERED: LOSARTAN POTASS25 MG PO (09:29)
[2021-09-18] MEDS ORDERED: ISOSORBIDE MONO30 MG PO (09:29)
[2021-09-18] MEDS ORDERED: NEPHRO-VITE RX1 EACH PEG (09:29)
[2021-09-18] MEDS ORDERED: VITAMIN D31 GM PO (09:29)
[2021-09-18] MEDS ORDERED: HYDRALAZINE HCL50 MG PO (09:29)
[2021-09-18] MEDS ORDERED: FEROSUL325 MG PO (09:29)
[2021-09-18] MEDS ORDERED: BRILINTA90 MG PO (09:29)
[2021-09-18] MEDS ORDERED: CRESTOR20 MG PO (09:29)
[2021-09-18] MEDS ORDERED: COREG12.5 MG PO (09:29)
[2021-09-18] MEDS ORDERED: [UNRECOGNIZED DRUG - OTHER] PO (09:29)
[2021-09-18] MEDS ORDERED: OMEPRAZOLE40 MG PO (09:29)
[2021-09-18] MEDS ORDERED: SENNA LAX8.6 MG PO (09:29)
[2021-09-18] MEDS ORDERED: FUROSEMIDE INJ 10 MG/ML 4 ML VIAL IV NR (11:15)
[2021-09-18] MEDS ORDERED: DEXAMETHASONE SOD PHOS 10 MG/1 ML VIAL IV SCH (11:15)
[2021-09-18] MEDS ORDERED: ALBUTEROL/IPRATROPIUM 3 ML NEB NEB SCH (11:45)
[2021-09-18] MEDS ORDERED: CASIRIVIMAB/IMDEVIMAB 10 ML in SODIUM CHLORIDE 0.9% 100 ML IV ONE ×4 (11:45)
[2021-09-18] MEDS ORDERED: SODIUM CHLORIDE 0.9% 100 ML ONE (11:55)
[2021-09-18 12:21] VITALS: BP 156/88
[2021-09-18 12:37] VITALS: BP 156/88
[2021-09-18 12:47] VITALS: BP 156/88
[2021-09-18] MEDS ORDERED: DEXTROSE 50% SYRINGE 50 ML IV PRN (13:00)
[2021-09-18] MEDS ORDERED: SODIUM CHLORIDE 0.9% 250ML 250 ML ONE (14:45)
[2021-09-18] MEDS: ALBUTEROL SULFATE HFA 8GM INHALATION AEROSOL INH SCH ×2 (14:58→20:00)
[2021-09-18] MEDS: FUROSEMIDE INJ 10 MG/ML 4 ML VIAL IV SCH ×2 (15:08→21:22)
[2021-09-18] MEDS: APIXAB 2.5 MG TABLET PO SCH (17:04)
[2021-09-18] MEDS: CARVEDILOL 12.5 MG TAB PO SCH (17:04)
[2021-09-18] MEDS: HYDRALAZINE HCL 25 MG TAB PO SCH (17:05)
[2021-09-18] MEDS: TICAGRELOR 90 MG TABLET PO SCH (17:05)
[2021-09-18] MEDS: INSULIN LISPRO 100 UNIT/1 ML 3ML VIAL SQ SCH ×2 (17:05→20:40)
[2021-09-18 17:59] VITALS: BP 124/81
[2021-09-18 20:09] VITALS: BP 138/79
[2021-09-18 21:00] VITALS: BP 138/79
[2021-09-18] MEDS ORDERED: ATORVASTATIN 40 MG TAB PO SCH (21:00)
[2021-09-18] MEDS ORDERED: ALLOPURINOL 300 MG TAB PO SCH (21:00)
[2021-09-19 05:03] VITALS: BP 122/80
[2021-09-19] MEDS ORDERED: DEXAMETHASONE SOD PHOS 10 MG/1 ML VIAL IV SCH (06:00)
[2021-09-19] MEDS: FUROSEMIDE INJ 10 MG/ML 4 ML VIAL IV SCH (06:57)
[2021-09-19] MEDS: INSULIN LISPRO 100 UNIT/1 ML 3ML VIAL SQ SCH ×2 (07:27→11:20)
[2021-09-19 07:37] LABS: BASOPHILS # (AUTO) 0.1 (0.0-0.1); BASOPHILS % 0.6 % (0.0-1.0); EOSINOPHILS # (AUTO) 0.6 (0.0-0.4); EOSINOPHILS % 7.3 % (0.0-6.0); HEMOGLOBIN 12.5 g/dL (14.0-18.0); LYMPHOCYTES # (AUTO) 0.8 (1.0-3.2); LYMPHOCYTES % 10.1 % (18.0-39.1); MEAN CORPUSCULAR HGB CONC 32.9 g/dL (31-35); MEAN CORPUSCULAR VOLUME 100.3 fL (81-99); MONOCYTES # (AUTO) 0.8 (0.2-0.8); MONOCYTES % 9.8 % (4.4-11.3); NEUTROPHILS # (AUTO) 5.7 (2.1-6.9); NEUTROPHILS % 71.9 % (38.7-80.0); PLATELET COUNT 142 x10e3/uL (140-360); RED BLOOD COUNT 3.79 x10e6/uL (4.3-5.7); RED CELL DISTRIBUTION WIDTH 13.7 % (11.7-14.4)
[2021-09-19] MEDS: ALBUTEROL SULFATE HFA 8GM INHALATION AEROSOL INH SCH ×2 (07:45→11:40)
[2021-09-19 08:05] LABS: ALBUMIN 3.1 g/dL (3.5-5.0); ANION GAP 18.3 mmol/L (8-16); CALCIUM 8.7 mg/dL (8.4-10.2); CREATININE, SERUM 2.4 mg/dL (0.72-1.25); POTASSIUM 3.3 mmol/L (3.5-5.1)
[2021-09-19 08:21] VITALS: BP 128/82
[2021-09-19] MEDS: HYDRALAZINE HCL 25 MG TAB PO SCH (08:32)
[2021-09-19] MEDS: TICAGRELOR 90 MG TABLET PO SCH (08:33)
[2021-09-19] MEDS: CARVEDILOL 12.5 MG TAB PO SCH (08:33)
[2021-09-19] MEDS: APIXAB 2.5 MG TABLET PO SCH (08:33)
[2021-09-19] MEDS ORDERED: PANTOPRAZOLE SOD 40 MG TABEC PO SCH (09:00)
[2021-09-19] MEDS ORDERED: SENNOSIDES 8.6 MG TAB PO SCH (09:00)
[2021-09-19] MEDS ORDERED: FERROUS SULFATE 325 MG TAB PO SCH (09:00)
[2021-09-19] MEDS ORDERED: LOSARTAN POTASSIUM 25 MG TAB PO SCH (09:00)
[2021-09-19] MEDS ORDERED: POTASSIUM CHLORIDE 10MEQ EA PO SCH (09:00)
[2021-09-19] MEDS ORDERED: AMIODARONE HCL 200 MG TAB PO SCH (09:00)
[2021-09-19] MEDS ORDERED: ISOSORBIDE MONONITRATE 30 MG TAB CR PO SCH (09:00)
[2021-09-19 09:20] VITALS: BP 128/82
[2021-09-19] MEDS ORDERED: POTASSIUM CHLORIDE 10MEQ EA PO ONE ×2 (09:30→11:00)
[2021-09-19 11:47] VITALS: BP 107/58
[2021-09-19 11:48] VITALS: BP 107/58
[2021-09-20] MEDS ORDERED: AZITHROMYCIN 250 MG TAB PO SCH (11:15)
== END 2021-09-19 13:39 | disposition home health service (06) | DRG 177 ==
LOC: ER 06:24 → ERHOLD 07:36 → MED/SURG3 11:18
PROVIDERS: ADMIT Internal Medicine; ATTEND Internal Medicine
DX: U07.1 COVID-19 (principal); I50.43 Acute on chronic combined systolic (congestive) and diastolic (congestive) heart failure; J12.82 Pneumonia due to coronavirus disease 2019; I13.0 Hypertensive heart and chronic kidney disease with heart failure and stage 1 through stage 4 chronic kidney disease, or unspecified chronic kidney disease; N18.4 Chronic kidney disease, stage 4 (severe); I25.10 Atherosclerotic heart disease of native coronary artery without angina pectoris; Z95.5 Presence of coronary angioplasty implant and graft; E11.22 Type 2 diabetes mellitus with diabetic chronic kidney disease; Z79.899 Other long term (current) drug therapy; K21.9 Gastro-esophageal reflux disease without esophagitis; I48.0 Paroxysmal atrial fibrillation
CPT/HCPCS: 36415; 71045; 80053; 82948; 83880; 84484; 85025; 87070; 87186; 87205; 93005; 94664; 94799; 99284; J0456; J1100; J1940; J2405; J7050; U0002

== ENCOUNTER → 2022-01-05 | Outpatient (CLI) | payer MEDICARE, OTHER ==
[~2022-01-05] MED LIST changes: +BRILINTA90 MG PO; +COREG12.5 MG PO; +CRESTOR20 MG PO; +FEROSUL325 MG PO; +HYDRALAZINE HCL50 MG PO; +ISOSORBIDE MONO30 MG PO; +LOSARTAN POTASS25 MG PO; +NEPHRO-VITE RX1 EACH PEG; +OMEPRAZOLE40 MG PO; +SENNA LAX8.6 MG PO; +VITAMIN D31 GM PO; +[UNRECOGNIZED DRUG - OTHER] PO
== END ==
LOC: RAD 11:41
PROVIDERS: ATTEND Internal Medicine
DX: J15.9 Unspecified bacterial pneumonia (principal)
CPT/HCPCS: 71046

== ENCOUNTER 2022-02-10 03:09 | Emergency (ER) | payer MEDICARE, OTHER ==
[~2022-02-10] VITALS: Ht 180.3 cm; Wt 93.0 kg
[2022-02-10] MEDS ORDERED: ONDANSETRON HCL INJ 2MG/ML 2ML 2 MG/ML VIAL IV STA (03:15)
[2022-02-10] MEDS ORDERED: ONDANSETRON HCL INJ 2MG/ML 2ML 2 MG/ML VIAL ONE (03:28)
[2022-02-10 03:33] LABS: BASOPHILS # (AUTO) 0.1 (0.0-0.1); BASOPHILS % 0.5 % (0.0-1.0); EOSINOPHILS # (AUTO) 0.4 (0.0-0.4); EOSINOPHILS % 3.5 % (0.0-6.0); HEMATOCRIT 40.9 % (38.2-49.6); HEMOGLOBIN 13.3 g/dL (14.0-18.0); LYMPHOCYTES # (AUTO) 1.5 (1.0-3.2); MEAN CORPUSCULAR HEMOGLOBIN 33.3 pg (28-32); MEAN CORPUSCULAR HGB CONC 32.5 g/dL (31-35); MEAN CORPUSCULAR VOLUME 102.5 fL (81-99); MONOCYTES % 7.7 % (4.4-11.3); NEUTROPHILS # (AUTO) 9.6 (2.1-6.9); NEUTROPHILS % 75.7 % (38.7-80.0); PLATELET COUNT 138 x10e3/uL (140-360); RED BLOOD COUNT 3.99 x10e6/uL (4.3-5.7); RED CELL DISTRIBUTION WIDTH 13.9 % (11.7-14.4)
[2022-02-10 03:51] LABS: AMYLASE 127 U/L (25-125); LIPASE 39 U/L (8-78)
[2022-02-10 03:55] LABS: ALBUMIN 3.3 g/dL (3.5-5.0); ANION GAP 16.4 mmol/L (8-16); CALCIUM 8.5 mg/dL (8.4-10.2); CREATININE, SERUM 3.01 mg/dL (0.72-1.25); POTASSIUM 3.4 mmol/L (3.5-5.1)
[2022-02-10 04:01] LABS: CREATINE KINASE MB 1.8 ng/mL (0-5.0)
[2022-02-10 04:30] LABS: CLARITY,URINE CLEAR (CLEAR); COLOR,URINE YELLOW (YELLOW); KETONES,URINE NEGATIVE (NEGATIVE); LEUKOCYTE ESTERASE ,URINE NEGATIVE (NEGATIVE); NITRITE,URINE NEGATIVE (NEGATIVE); PROTEIN,URINE DIPSTICK 1+ (NEGATIVE); URINE UROBILINOGEN 0.2 mg/dL (0.2 - 1)
[2022-02-10 04:35] LABS: AMORPHOUS SEDIMENT,URINE MODERATE (FEW); BACTERIA,URINE FEW /HPF; EPITHELIAL CELLS,URINE MODERATE /LPF; RBC,URINE 0-5 /HPF (0-5); WBC,URINE (MAN) 0-5 /HPF (0-5)
[2022-02-10] MEDS ORDERED: MOVE FREE JOIN1 EACH PO (05:32)
[2022-02-10] MEDS ORDERED: ELIQUIS2.5 MG PO (05:32)
[2022-02-10] MEDS ORDERED: NITROGLYCERIN0.4 MG SL (05:32)
[2022-02-10] MEDS ORDERED: NEPHRO-VITE TABL1 EA PO (05:32)
[2022-02-10] MEDS ORDERED: OMEPRAZOLE40 MG PO (05:32)
[2022-02-10 05:56] VITALS: BP 141/75
[2022-02-10] MEDS ORDERED: ONDANSETRON ODT4 MG PO (05:56)
== END 2022-02-10 06:35 | disposition home or self-care (01) ==
LOC: ER 03:12
DX: R11.2 Nausea with vomiting, unspecified (principal); R55 Syncope and collapse; R19.7 Diarrhea, unspecified; K57.90 Diverticulosis of intestine, part unspecified, without perforation or abscess without bleeding; I12.9 Hypertensive chronic kidney disease with stage 1 through stage 4 chronic kidney disease, or unspecified chronic kidney disease; E11.22 Type 2 diabetes mellitus with diabetic chronic kidney disease; N18.9 Chronic kidney disease, unspecified; I50.9 Heart failure, unspecified; I48.91 Unspecified atrial fibrillation; E78.5 Hyperlipidemia, unspecified; K21.9 Gastro-esophageal reflux disease without esophagitis; Z20.822 Contact with and (suspected) exposure to COVID-19; Z95.5 Presence of coronary angioplasty implant and graft; Z95.810 Presence of automatic (implantable) cardiac defibrillator
CPT/HCPCS: 36415; 70450; 71045; 74176; 80053; 81001; 82150; 82550; 82553; 83690; 83880; 84484; 85025; 93005; 99284; J2405; U0002

== ENCOUNTER → 2024-04-24 | Outpatient (REF) | payer MEDICARE, OTHER ==
[~2024-04-24] MED LIST changes: +ASPIRIN CHEW81 MG PO; +ELIQUIS2.5 MG PO; +ENTRESTO 24 MG1 EACH PO; +HYDROCODON-ACE1 EA12 PO; +IOPAMIDOL 370 MG/ML 100 ML INFUS..BTL INJ ONE; +LEVOFLOXACIN250 MG PO; +LEVOTHYROXINE50 MCG PO; +MOVE FREE JOIN1 EACH PO; +NEPHRO-VITE TABL1 EA PO; +NITROGLYCERIN0.4 MG SL; +SODIUM CHLORIDE 0.9% 500ML 500 ML ONE
== END ==
LOC: DX 11:56
PROVIDERS: ATTEND Surgery
DX: K81.0 Acute cholecystitis (principal)
CPT/HCPCS: 47531; J7040; Q9967

== ENCOUNTER 2024-05-07 07:54 | Inpatient (IN) | payer MEDICARE, OTHER ==
[~2024-05-07] VITALS: Ht 180.3 cm; Wt 87.1 kg
[~2024-05-07 07:54] MED LIST changes: -IOPAMIDOL 370 MG/ML 100 ML INFUS..BTL INJ ONE; -SODIUM CHLORIDE 0.9% 500ML 500 ML ONE
[2024-05-07 09:31] VITALS: BP 123/66; PULSE 76; RESP 20; TEMP 98.2; O2SAT 100
[2024-05-07 09:41] VITALS: BP 123/66; PULSE 76; RESP 20; TEMP 98.2; O2SAT 100
[2024-05-07] MEDS ORDERED: TORSEMIDE20 MG PO (09:54)
[2024-05-07 10:28] LABS: BASOPHILS % 0.7 % (0.0-1.0); EOSINOPHILS # (AUTO) 0.2 (0.0-0.4); EOSINOPHILS % 4.8 % (0.0-6.0); HEMATOCRIT 30.8 % (38.2-49.6); HEMOGLOBIN 10.6 g/dL (14.0-18.0); LYMPHOCYTES # (AUTO) 1.2 (1.0-3.2); LYMPHOCYTES % 28.1 % (18.0-39.1); MEAN CORPUSCULAR HEMOGLOBIN 34.6 pg (28-32); MEAN CORPUSCULAR HGB CONC 34.4 g/dL (31-35); MEAN CORPUSCULAR VOLUME 100.7 fL (81-99); MONOCYTES # (AUTO) 0.5 (0.2-0.8); MONOCYTES % 12.7 % (4.4-11.3); NEUTROPHILS # (AUTO) 2.2 (2.1-6.9); NEUTROPHILS % 53.5 % (38.7-80.0); PLATELET COUNT 41 x10e3/uL (140-360); RED BLOOD COUNT 3.06 x10e6/uL (4.3-5.7); RED CELL DISTRIBUTION WIDTH 13.8 % (11.7-14.4); WHITE BLOOD COUNT 4.17 x10e3/uL (4.8-10.8)
[2024-05-07 10:43] LABS: INR 0.99; PROTHROMBIN TIME 13.6 seconds (11.9-14.5)
[2024-05-07 10:54] LABS: ALBUMIN 3.2 g/dL (3.5-5.0); ANION GAP 13.9 mmol/L (8-16); BILIRUBIN,TOTAL 0.6 mg/dL (0.2-1.2); CALCIUM 9.1 mg/dL (8.4-10.2); CREATININE, SERUM 3.48 mg/dL (0.72-1.25); POTASSIUM 3.9 mmol/L (3.5-5.1); TOTAL PROTEIN 3.6 g/dL (6.5-8.1)
[2024-05-07] MEDS: SODIUM CHLORIDE 0.9% 500ML 500 ML ONE (11:10)
[2024-05-07 11:27] VITALS: BP 114/62; PULSE 67; RESP 19; TEMP 98.6; O2SAT 98
[2024-05-07] MEDS: METRONIDAZOLE 500MG/NS 100ML 100 ML IV SCH (12:00)
[2024-05-07] MEDS ORDERED: IOPAMIDOL 370 MG/ML 100 ML INFUS..BTL INJ ONE (13:33)
[2024-05-07] MEDS ORDERED: LIDOCAINE HCL 1% LOCAL INJ 20 ML VIAL ONE (13:38)
[2024-05-07 16:21] VITALS: BP 114/67; PULSE 74; RESP 17; TEMP 98.5; O2SAT 100
[2024-05-07] MEDS ORDERED: METRONIDAZOLE 500MG/NS 100ML 100 ML IV SCH (20:00)
== END 2024-05-07 20:08 | disposition short-term general hospital (02) | DRG 445 ==
LOC: MED/SURG 08:35
PROVIDERS: ADMIT Internal Medicine; ATTEND Internal Medicine
PROC: BF131ZZ Fluoroscopy of Gallbladder and Bile Ducts using Low Osmolar Contrast (ICD-10-PCS; principal; 2024-05-07)
DX: K80.42 Calculus of bile duct with acute cholecystitis without obstruction (principal); D61.818 Other pancytopenia; I13.0 Hypertensive heart and chronic kidney disease with heart failure and stage 1 through stage 4 chronic kidney disease, or unspecified chronic kidney disease; N18.4 Chronic kidney disease, stage 4 (severe); I50.42 Chronic combined systolic (congestive) and diastolic (congestive) heart failure; N25.81 Secondary hyperparathyroidism of renal origin; Z93.4 Other artificial openings of gastrointestinal tract status; E11.22 Type 2 diabetes mellitus with diabetic chronic kidney disease; Z79.84 Long term (current) use of oral hypoglycemic drugs; I25.10 Atherosclerotic heart disease of native coronary artery without angina pectoris; Z95.5 Presence of coronary angioplasty implant and graft; E78.5 Hyperlipidemia, unspecified; I48.0 Paroxysmal atrial fibrillation; Z95.2 Presence of prosthetic heart valve; Z95.810 Presence of automatic (implantable) cardiac defibrillator; Z79.01 Long term (current) use of anticoagulants; Z79.899 Other long term (current) drug therapy
CPT/HCPCS: 36415; 71045; 74470; 80053; 85025; 85610; 85730; 93005; J2001; J2543; J7040; Q9967